=== PATIENT | male | born 1940 | race Caucasian/White ===

== ENCOUNTER → 2018-04-02 13:19 | Outpatient (CLI) | payer OTHER, SELFPAY ==
--- NOTE | 2018-04-02 | DI.CT.S_ITS ---
PROCEDURE: CT SINUS SCREEN WO CON INDICATIONS: CHRONIC SINUSITIS TECHNIQUE: Noncontrast 3.0 mm axial images acquired from the frontal sinuses to the mid-sella, with coronal and sagittal reformats. For radiation dose reduction, the following was used: automated exposure control, adjustment of mA and/or kV according to patient size. COMPARISON: None. FINDINGS: Image quality: Excellent. Paranasal sinuses are normally aerated. Minimal mucosal thickening in the anterior aspect of left maxillary sinus. Small mucous retention cyst versus polyp is noted in the left maxillary sinus. Small defect noted in the floor of the right maxillary sinus likely related to prior dental extraction. No oroantral fistula identified. No air-fluid levels are identified. Small defect in the lateral wall of the right maxillary sinus which could be postsurgical or congenital. The osteomeatal units are patent bilaterally. Diffuse right maxillary sinus osseous wall thickening is noted. 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 Nasal septum is slightly deviated to the right. No sarahi bullosa or paradoxical turbinates. No frontal recess cells. Type II cribriform plate is noted. No variannce in the ethmoid roof anatomy. The anterior ethmoid artery notches are protected bilaterally. Septa are noted in the anterior maxillary sinuses. Sphenoid pneumatization pattern is sellar complete. Type III right optic canal noted. Type I left optic canal noted. The sphenoid sinus septum is deviated to the right and attaches to the osseous optic canal. Atherosclerotic calcifications noted in the cavernous segments of the internal carotid arteries. IMPRESSION: 1. Minimal left maxillary sinus mucosal thickening. 2. Small left maxillary sinus retention cyst versus polyp. 3. Diffuse right maxillary sinus osseous wall thickening 4. No air-fluid levels. 5. Variant paranasal sinus anatomy as described above. Dictated by: Amarilys Peres MD, PhD on 04/02/2018 at 14:13 Approved by: Amarilys Peres MD, PhD on 04/02/2018 at 14:25
== END ==
PROVIDERS: PCP Family Medicine; Visit Provider Otolaryngology
DX: J32.8 Other chronic sinusitis (principal)
CPT/HCPCS: 70486

== ENCOUNTER → 2020-03-28 08:44 | Outpatient (CLI) | payer MEDICARE, SELFPAY ==
--- NOTE | 2020-03-28 08:45 | DI.ECHO.S_ITS ---
[facility] +---------+ : : [address] : : : : [id number] : : : : Phone: [phone]+ Echocardiogram Report + + :Name: QUINCY BOYD Study Date: 03/28/2020 Height: 71 in : :[facility] Weight: 265 lb : : Gender: Male BSA: 2.4 m2 : :: 1940 Age: 79 yrs BP: 187/97 mmHg: :Reason For Study: EDEMA, HISTORY OF CAD : :Ordering Physician: CECILIA, : :CHANDRIKA Performed By: Alexandrea Walters : :Referring: CHANDRIKA BROOKS : + + Interpretation Summary 1) Mildly increased left ventricular thickness (concentric) with normal size, and normal systolic function (EF 55-60%). 2) Septal motion is consistent with post-operative state. 3) Mildly enlarged right ventricle with mildly reduced function. 4) Diastolic parameters suggest a pseudonormalization pattern, consistent with probable elevated filling pressures. 5) No significant valvular abnormalities. 6) Significant hypertension present during the study (BP 187/97mmHg). 7) No prior Echo available for comparison. Procedure: A two-dimensional transthoracic echocardiogram with color flow and Doppler was performed. The study quality was technically adequate. The heart rate ranged between 58-68 bpm during the study. Left Ventricle: The left ventricle is normal in size. There is mild concentric left ventricular hypertrophy. The ejection fraction is estimated to be 55-60%. Septal motion is consistent with post-operative state. Diastolic parameters suggest a pseudonormalization pattern, consistent with probable elevated filling pressures. Right Ventricle: The right ventricle is mildly dilated. Right ventricular systolic function is mildly reduced. Atria: The left atrium is mildly dilated. Right atrial size is normal. There is no Doppler evidence for an interatrial shunt. Mitral Valve: The mitral valve leaflets appear mildly thickened, but open well. There is mild mitral annular calcification. There is mild mitral regurgitation. Aortic Valve: The aortic valve opens well. The aortic valve is mildly calcified. There is no aortic valve stenosis. No aortic regurgitation is present. Tricuspid Valve: The tricuspid valve is normal in structure and function. There is mild tricuspid regurgitation. Right ventricular systolic pressure is estimated to be 26 mmHg plus the clinically estimated CVP which cannot be estimated on this exam. Pulmonic Valve: The pulmonic valve is not well visualized. There is no pulmonic valvular regurgitation. Great Vessels: The aortic root is normal size. The ascending aorta is at the upper limits of normal in size. The inferior vena cava was not visualized. Pericardium/ Pleura There is no pericardial effusion. There is no pleural effusion. MMode/2D Measurements & Calculations LVIDd: 4.8 cm LVOT diam: 2.0 cm LVIDs: 3.0 cm Ao root diam: 3.3 cm FS: 37.8 % asc Aorta Diam: 3.6 cm EPSS: 0.75 cm IVSd: 1.2 cm LVPWd: 1.2 cm LV galarza. diameter/BSA (cm/m^2): 2.0 LV sys. diameter/BSA (cm/m^2): 1.3 LA A2 area: 24.7 cm2 RA long axis: 5.6 cm LA A4 area: 26.0 cm2 RA area: 16.6 cm2 LA length (vol): 6.1 cm RA vol: 41.9 ml LA vol: 89.7 ml RA : 17.6 ml/m2 LA vol index: 37.7 ml/m2 RVD1 (basal): 4.5 cm TAPSE: 1.6 cm Doppler Measurements & Calculations Ao V2 max: 166.6 cm/sec LVOT Max Tomas: 108.6 cm/sec Ao V2 mean: 112.2 cm/sec LV V1 max P.7 mmHg Ao max P.1 mmHg LV V1 VTI: 23.1 cm Ao mean P.6 mmHg EDISON(I,D): 2.2 cm2 Ao V2 VTI: 33.7 cm EDISON(V,D): 2.1 cm2 sev ratio: 0.69 EDISON indexed to BSA (cm^2/m^2): 0.93 MV E max tomas: 103.0 cm/sec TR max tomas: 255.6 cm/sec MV A max tomas: 120.0 cm/sec TR max P.1 mmHg MV E/A: 0.86 PA V2 max: 61.2 cm/sec Med Peak E' Tomas: 5.7 cm/sec PA V2 mean: 44.3 cm/sec E/E' med: 18.2 PA mean P.86 mmHg Lat Peak E' Tomas: 8.8 cm/sec PA pr(Accel): 51.6 mmHg E/E' lat: 11.7 E/e' average: 15.0 MV dec time: 0.25 sec SV(LVOT): 74.4 ml Reading Physician:03:44 PM
== END ==
PROVIDERS: PCP Family Medicine; Referring Provider Family Medicine; Visit Provider Family Medicine
DX: I08.1 Rheumatic disorders of both mitral and tricuspid valves (principal); I25.10 Atherosclerotic heart disease of native coronary artery without angina pectoris; R60.9 Edema, unspecified
CPT/HCPCS: 93306

== ENCOUNTER → 2020-06-05 07:39 | Outpatient (CLI) | payer MEDICARE, SELFPAY ==
[2020-06-05 08:53] LABS: BUN Creatinine Ratio 25.3 (6-22); Blood Urea Nitrogen 22 mg/dL (9-20); Calcium 9.4 mg/dL (8.4-10.2); Carbon Dioxide 32 mmol/L (22-32); Chloride 101 mmol/L (98-107); Estimated Glomerular Filt Rate > 60.0 mL/min (>60); Glucose 157 mg/dL (80-110); HEMOLYSIS < 15 (0-50); Potassium 4.2 mmol/L (3.4-5.1); Sodium 138 mmol/L (137-145)
[2020-06-05 08:57] LABS: Hemoglobin A1C% w Est Avg Glu 7.6 % (4.0-6.0)
== END ==
PROVIDERS: PCP Family Medicine; Referring Provider Family Medicine; Visit Provider Family Medicine
DX: E78.5 Hyperlipidemia, unspecified (principal); R73.9 Hyperglycemia, unspecified
CPT/HCPCS: 36415; 80048; 83036

== ENCOUNTER → 2020-06-08 11:01 | Outpatient (CLI) | payer MEDICARE, SELFPAY ==
--- NOTE | 2020-06-08 11:02 | DI.RAD.S_ITS ---
PROCEDURE: XR FOOT LT MIN 3V INDICATIONS: Left ankle and foot pain TECHNIQUE: 3 views of the foot were acquired. COMPARISON: None. FINDINGS: Bones: Left foot without acute fracture or malalignment. Degenerative changes of the left midfoot and severe degenerative changes involving the tarsometatarsal joints of the 1st 2nd and likely 3rd metatarsals. Moderate degenerative changes of the left 1st metatarsophalangeal and interphalangeal joints. Soft tissues: No tibiotalar joint effusion. Achilles tendon appears normal. IMPRESSION: 1. Left foot without acute fracture or malalignment. 2. 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 3. Degenerative osteoarthritic changes of the left 1st metatarsophalangeal, 1st interphalangeal, and midfoot. Dictated by: Thomas Shi M.D. on 06/08/2020 at 13:31 Approved by: Thomas Shi M.D. on 06/08/2020 at 14:07
--- NOTE | 2020-06-08 11:02 | DI.RAD.S_ITS ---
PROCEDURE: XR ANKLE LT MIN 3V INDICATIONS: Left ankle and foot pain TECHNIQUE: 3 views of the ankle were acquired. COMPARISON: None. FINDINGS: Bones: No fractures or dislocations. Ankle mortise is normally aligned. No suspicious bony lesions. Degenerative changes of the left midfoot. Minimal degenerative changes of the anterior tibiotalar joint. Soft tissues: No tibiotalar joint effusion. Achilles tendon appears normal. IMPRESSION: Minimal degenerative changes of the left ankle and midfoot. Dictated by: Thomas Shi M.D. on 06/08/2020 at 13:27 Approved by: Thomas Shi M.D. on 06/08/2020 at 13:31
== END ==
PROVIDERS: PCP Family Medicine; Referring Provider Family Medicine; Visit Provider Family Medicine
DX: M25.572 Pain in left ankle and joints of left foot (principal)
CPT/HCPCS: 73610; 73630

== ENCOUNTER → 2020-06-18 10:58 | Outpatient (CLI) | payer MEDICARE, SELFPAY ==
--- NOTE | 2020-06-18 10:59 | DI.MRI.S_ITS ---
PROCEDURE: MRFOOT LT WO CON INDICATIONS: Left foot and ankle pain TECHNIQUE: Noncontrast sagittal T1 spin echo and T2 fast spin echo with fat saturation, long-axis T1 spin echo and T2 fast spin echo with fat saturation, short-axis T1 spin echo and T2 fast spin echo with fat saturation through the forefoot. COMPARISON: [facility], CR, XR FOOT LT MIN 3V, 06/08/2020, 11:13. FINDINGS: Image quality: Excellent. Bones and joints: Significant osteoarthritic changes are noted throughout tarsal metatarsal joints more prominent involving 1st and 2nd TMT joints with joint space narrowing, subchondral sclerosis and edema, and prominent dorsal marginal osteophyte formation. Mild osteoarthritic changes are noted throughout MTP joints and interphalangeal joints more prominent in the 1st MTP joint. Osteoarthritic changes also seen involving articulation between 1st metatarsal head and sesamoid bones of 1st metatarsus. There is marrow edema involving medial sesamoid of 1st metatarsal head with subtle internal linear hypointense signal concerning for nondisplaced fracture. No fracture or dislocation. No suspicious intraosseous lesion. No evidence of metatarsal stress fractures. Soft tissues: The visualized plantar foot muscles demonstrate normal signal and bulk. Visualized flexor and extensor tendons appear intact, without tenosynovitis. The distal insertions of the peroneus brevis and longus tendons appear intact. The principal Lisfranc ligament appears intact. No soft tissue ganglion cysts or bursal fluid collections. Sagittal images demonstrate no evidence for plantar plate tears. IMPRESSION: 1. Suggestion of nondisplaced incomplete fracture involving medial sesamoid of 1st metatarsal head with internal fracture line and marrow edema. No other fracture or dislocation is seen. No metatarsal stress fracture. 2. Moderate to severe osteoarthritic changes involving 1st through 3rd TMT joints. [id number] osteoarthritic changes throughout rest of midfoot and forefoot joints. 3. Lisfranc ligament and joint is intact. Flexor and extensor tendons show no tendon tear or tendinosis. Visualized portion of plantar aponeurosis is grossly intact. Dictated by: Rito Abraham M.D. on 06/19/2020 at 8:57 Approved by: Rito Abraham M.D. on 06/19/2020 at 9:28
--- NOTE | 2020-06-18 10:59 | DI.MRI.S_ITS ---
PROCEDURE: MR ANKLE LT WO CON INDICATIONS: Left foot and ankle pain TECHNIQUE: Noncontrast sagittal T1 spin echo and T2 fast spin echo with fat saturation, axial proton density fast spin echo and T2 fast spin echo with fat saturation, coronal T1 spin echo and T2 fast spin echo with fat saturation through the ankle/hindfoot. COMPARISON: [facility], CR, XR ANKLE LT MIN 3V, 06/08/2020, 11:13. FINDINGS: Image quality: Excellent. Bones and joints: Marked soft tissue swelling and edema surrounding ankle joint is seen particularly over posterior and lateral aspect. Swelling is seen extending to dorsum of midfoot and hindfoot. No discrete drainable fluid collection is seen. Moderate to severe osteoarthritic changes are noted involving tarsal metatarsal joints particularly at 1st through 3rd TMT joints better evaluated on MRI of foot study. No bone marrow contusions or fractures. No hindfoot coalitions. No osteochondral injuries of the talar dome. No pathologic joint effusions. Medial structures: The posterior tibialis, flexor digitorum longus, and flexor hallucis longus tendons are intact. The posterior tibial neurovascular bundle appears normal within the tarsal tunnel, without extrinsic mass effect. The deep layer (anterior and posterior tibiotalar ligaments) and superficial layer (tibionavicular, tibiospring, and tibiocalcaneal ligaments) of the deltoid ligament appear normal. The spring ligament components (superomedial calcaneonavicular, medioplantar oblique calcaneonavicular, and inferoplantar longitudinal ligaments) are intact. Lateral structures: The anterior talofibular, calcaneofibular, and posterior talofibular ligaments appear intact. More superiorly, the anterior and posterior tibiofibular ligaments appear attenuated with heterogeneous intrasubstance T2 hyperintense signal suggestive of low-grade sprain/intrasubstance partial-thickness tear. The tibiofibular syndesmosis is normal in width at 2 mm or less. The peroneus longus and brevis tendons are mildly thickened and show mild adjacent soft tissue edema suggestive of tendinosis . Adjacent bony peroneal tubercle and retrotrochlear prominence are normal in size. The sinus tarsi demonstrates normal fatty signal, without edema, fibrosis, or cyst formation. Visualized sinus tarsi components (cervical ligament, interosseous talocalcaneal ligament, roots of the inferior extensor retinaculum) appear normal. The calcaneonavicular and calcaneocuboid components of the bifurcate ligament appear intact. The dorsal calcaneocuboid ligament appears intact. Anterior structures: The tibialis anterior, extensor hallucis longus, and extensor digitorum longus tendons appear intact. The dorsal talonavicular ligament appears intact. Posterior and plantar structures: Achilles tendon is intact. Medial and lateral bands of the plantar fascia are of normal thickness. No abductor digiti quinti muscle atrophy to suggest Kim neuropathy. IMPRESSION: 1. Significant soft tissue swelling and edema in visualized distal lower leg extending to posterior and lateral aspect of ankle joint and extending to dorsal aspect of midfoot and hindfoot. No discrete drainable fluid collection. 2. No fracture or dislocation. No marrow edema. Moderate to severe osteoarthritic changes throughout tarsal metatarsal joints particularly involving 1st through 3rd TMT joints better evaluated on MRI of foot study. Mild hindfoot joint osteoarthritis. 3. Suggestion of mild tendinosis involving peroneus tendons at the level of calcaneus. No evidence of tendon tear. Extensor and flexor tendons are intact. Achilles tendon is intact. 4. Low-grade sprain/partial-thickness tear involving anterior and posterior tibial fibular ligaments. No significant widening of distal tibial fibular syndesmosis. Rest of the medial and lateral ankle ligaments are grossly intact. Dictated by: Rito Abraham M.D. on 06/19/2020 at 9:28 Approved by: Rito Abraham M.D. on 06/19/2020 at 9:47
== END ==
PROVIDERS: PCP Family Medicine; Referring Provider Family Medicine; Visit Provider Family Medicine
DX: M79.672 Pain in left foot (principal); S93.432A Sprain of tibiofibular ligament of left ankle, initial encounter; M19.072 Primary osteoarthritis, left ankle and foot; M25.572 Pain in left ankle and joints of left foot; M79.89 Other specified soft tissue disorders
CPT/HCPCS: 73718; 73721

== ENCOUNTER → 2020-07-06 09:56 | Outpatient (CLI) | payer MEDICARE, SELFPAY ==
--- NOTE | 2020-07-06 11:04 | DIET.PN ---
Diabetes Intake: Initial Assessment Assess: Mr. Burns is a 79 yom referred for newly diagnosed type 2 diabetes. Since diagnosis he has started eating more vegan friendly foods. He has replaced meat with vegan/plant burgers and has been substituting with tofu. He does enjoy baking and generally makes his own breads and pastries with wheat flour. He is unable to exercise due to chronic foot pain from a cracked bone. 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 Labs: Per pt report: A1c: 7.6 Meds: Diet: per 24 hr recall: B: cheerios; home made blueberry scone; thompson, eggs; oatmeal L: veggie burger, chips; ham sandwich, chips D: pizza; spaghetti w/ meatballs Sn: orange; ice cream Wt: 243lb Ht: 71in BMI: 33.9 BP: 144/82 DX: Altered nutrition related laboratory values related to impaired glucose metabolism, lack of previous exposure to nutrition information as evidenced by pt report, diagnosis of diabetes, previous diet high in refined carbohydrates. Intervention: 1. Completed intake assessment. Discussed barriers to care. 2. Discussed pathophysiology of diabetes. Reviewed A1c and its correlation to blood glucose numbers. Discussed recommended BG ranges. 3. Discussed importance of self-monitoring, how often, and when to check. 4. Reviewed hyper/hypoglycemia and treatment. 5. Reviewed safe disposal of equipment (strip/lancets/insulin needles). 6. Created SMART goals for pt self-care and success. 7. Discussed program curriculum outline and class needs based on individual goals. SMART Goals: 1. Pt goal A1c <7.0 in the next 3 months through closer attention to dietary behaviors including portion control, label reading, and learning carb counting. Monitor/Evaluate: Pt will attend full DSME program. Basic Nutrition class scheduled for Jul 11.
== END ==
PROVIDERS: PCP Family Medicine; Referring Provider Family Medicine; Visit Provider Family Medicine
DX: E11.9 Type 2 diabetes mellitus without complications (principal); E66.9 Obesity, unspecified; G89.29 Other chronic pain; M79.673 Pain in unspecified foot; Z68.33 Body mass index [BMI] 33.0-33.9, adult; Z71.3 Dietary counseling and surveillance
CPT/HCPCS: G0108

== ENCOUNTER → 2020-07-11 10:07 | Outpatient (CLI) | payer MEDICARE, SELFPAY ==
--- NOTE | 2020-07-11 11:59 | DIET.PN ---
Diabetes: Healthy Eating 2 Intervention: Fats effects on glucose, weight, heart disease, cholesterol Sat Vs Unsat Protein- animal and plant based options Low, med, high fat meats Sugar substitutes Sodium Health claims Grocery shopping guidelines Eating away from home Alcohol Sick day guidelines Ketone Testing
== END ==
PROVIDERS: PCP Family Medicine; Referring Provider Family Medicine; Visit Provider Family Medicine
DX: E11.9 Type 2 diabetes mellitus without complications (principal); Z71.3 Dietary counseling and surveillance
CPT/HCPCS: G0109

== ENCOUNTER → 2020-08-01 09:49 | Outpatient (CLI) | payer MEDICARE, SELFPAY ==
--- NOTE | 2020-08-01 12:27 | DIET.PN ---
Diabetes: Healthy Eating 1 Intervention: ? Discussed pathophysiology of diabetes and impact of nutrition/diet on blood sugar control.? Discussed fed versus non-fed state.?? ? Reviewed importance of Balance, Variety, and Moderation. ? Discussed the effect of carbohydrates/protein/fat on blood sugar control.? ? Stressed importance of consistent carbohydrate intake at each meal and provided instructions for recommended servings/portions of carbohydrates/protein per meal. Provided educational material. ? Reviewed carbohydrate counting and measuring carbohydrate content via serving sizes and reading nutrition labels.? Provided handouts.?? ? Discussed the difference between simple versus complex carbohydrates and the effect of fiber on blood sugar control.? Discussed various methods to increase fiber content in diet. ? Discussed the plate method for creating more carbohydrate conscious balanced meals. ? Stressed importance of meal timing and not going >4-5 hours between meals. Encouraged adding protein to evening snack to support glucose control overnight. ? Discussed importance of making dietary habits part of lifestyle change.
== END ==
PROVIDERS: PCP Family Medicine; Referring Provider Family Medicine; Visit Provider Family Medicine
DX: E11.9 Type 2 diabetes mellitus without complications (principal); Z71.3 Dietary counseling and surveillance
CPT/HCPCS: G0109

== ENCOUNTER → 2021-06-13 08:20 | Outpatient (CLI) | payer MEDICARE, SELFPAY ==
[2021-06-13 08:36] LABS: Add Manual Diff / Slide Review NO; Basophils Absolute Auto 0 /uL (0-100); Basophils Percent Auto 0.4 % (0-2); Eosinophils Absolute Auto 100 /uL (0-450); Eosinophils Percent Auto 1.6 % (2-4); Hematocrit 43.6 % (41-53); Hemoglobin 14.7 g/dL (13.5-17.5); Lymphocytes Absolute Auto 1600 /uL (1100-4500); Lymphocytes Percent Auto 23.2 % (25-40); Mean Corpuscular HGB Conc 33.7 % (30-36); Mean Corpuscular Hemoglobin 29.8 PG (26-34); Mean Corpuscular Volume 88.4 fL (80-100); Monocytes Absolute Auto 600 /uL (0-900); Monocytes Percent Auto 9.2 % (3-14); Neutrophils Absolute Auto 4500 /uL (1500-7000); Neutrophils Percent Auto 65.6 % (50-75); Platelet Count 223 X10^3/uL (150-400); Red Blood Cell Count 4.93 X10^6/uL (4.5-5.9); Red Cell Distribution Width 13.7 % (11.6-14.8); White Blood Cell Count 6.9 X10^3/uL (4.5-11.0)
[2021-06-13 08:44] LABS: Hemoglobin A1C% w Est Avg Glu 7.3 % (4.0-6.0)
[2021-06-13 08:58] LABS: Alanine Aminotransferase 23 IU/L (<50); Albumin 4.4 g/dL (3.5-5.0); Albumin Globulin Ratio 1.6 (1.0-2.8); Alkaline Phosphatase 61 U/L (38-126); Aspartate Aminotransferase 23 IU/L (17-59); Bilirubin Total 0.9 mg/dL (0.2-1.3); Blood Urea Nitrogen 29 mg/dL (9-20); Calcium 9.5 mg/dL (8.4-10.2); Carbon Dioxide 29 mmol/L (22-32); Chloride 102 mmol/L (98-107); Cholesterol 124 mg/dL (140-199); Estimated Glomerular Filt Rate > 60.0 mL/min (>60); Globulin 2.7 g/dL (1.7-4.1); Glucose 148 mg/dL (80-110); HDL Cholesterol 42 mg/dL (40-60); HEMOLYSIS < 15 (0-50); LDL Cholesterol Calculated 58 mg/dL (<100); Potassium 4.1 mmol/L (3.4-5.1); Sodium 141 mmol/L (137-145); Total Protein 7.1 g/dL (6.3-8.2); Triglycerides 120 mg/dL (35-150)
[2021-06-13 10:56] LABS: Microalbumi Creatinin Ratio Ur 13.3 ug/mg CR (<30)
== END ==
PROVIDERS: PCP Family Medicine; Referring Provider Family Medicine; Visit Provider Family Medicine
DX: E11.69 Type 2 diabetes mellitus with other specified complication (principal); E78.2 Mixed hyperlipidemia; I10 Essential (primary) hypertension; I25.10 Atherosclerotic heart disease of native coronary artery without angina pectoris
CPT/HCPCS: 36415; 80053; 80061; 82043; 82570; 83036; 85025

== ENCOUNTER → 2022-08-06 06:49 | Outpatient (CLI) | payer MEDICARE, SELFPAY ==
[2022-08-06 08:16] LABS: Add Manual Diff / Slide Review NO; Basophils Absolute Auto 0 /uL (0-100); Basophils Percent Auto 0.5 % (0-2); Eosinophils Absolute Auto 200 /uL (0-450); Eosinophils Percent Auto 2.6 % (2-4); Hematocrit 40.7 % (41-53); Hemoglobin 13.8 g/dL (13.5-17.5); Lymphocytes Absolute Auto 1500 /uL (1100-4500); Lymphocytes Percent Auto 23.2 % (25-40); Mean Corpuscular Volume 88.1 fL (80-100); Monocytes Absolute Auto 600 /uL (0-900); Monocytes Percent Auto 9.6 % (3-14); Neutrophils Absolute Auto 4200 /uL (1500-7000); Neutrophils Percent Auto 64.1 % (50-75); Platelet Count 215 X10^3/uL (150-400); Red Blood Cell Count 4.62 X10^6/uL (4.5-5.9); Red Cell Distribution Width 13.9 % (11.6-14.8); White Blood Cell Count 6.6 X10^3/uL (4.5-11.0)
[2022-08-06 08:39] LABS: Alanine Aminotransferase 27 IU/L (<50); Albumin Globulin Ratio 1.4 (1.0-2.8); Alkaline Phosphatase 74 U/L (38-126); Aspartate Aminotransferase 22 IU/L (17-59); BUN Creatinine Ratio 29.8 (6-22); Bilirubin Total 0.8 mg/dL (0.2-1.3); Blood Urea Nitrogen 28 mg/dL (9-20); Calcium 8.9 mg/dL (8.4-10.2); Carbon Dioxide 30 mmol/L (22-32); Chloride 100 mmol/L (98-107); Cholesterol 125 mg/dL (140-199); Estimated Glomerular Filt Rate > 60 mL/min (>60); Globulin 2.9 g/dL (1.7-4.1); Glucose 136 mg/dL (80-110); HDL Cholesterol 43 mg/dL (40-60); HEMOLYSIS < 15 (0-50); LDL Cholesterol Calculated 59 mg/dL (<100); Potassium 3.9 mmol/L (3.4-5.1); Sodium 137 mmol/L (137-145); Total Protein 6.9 g/dL (6.3-8.2); Triglycerides 115 mg/dL (35-150)
[2022-08-06 18:07] LABS: Creatinine Urine Random 68.5 mg/dL
[2022-08-06 18:15] LABS: Microalbumin Urine Random < 0.6 mg/dL (0-1.6)
[2022-08-06 23:23] LABS: x Labcorp Estim. Avg Glu (eAG) 154 mg/dL (.)
== END ==
PROVIDERS: PCP Family Medicine; Referring Provider Family Medicine; Visit Provider Family Medicine
DX: E11.69 Type 2 diabetes mellitus with other specified complication (principal); E78.2 Mixed hyperlipidemia; I10 Essential (primary) hypertension
CPT/HCPCS: 80053; 80061; 82043; 82570; 83036; 85025

== ENCOUNTER 2022-09-19 13:06 | Day surgery (SDC) | payer MEDICARE, SELFPAY ==
[2022-09-13 14:18] VITALS: BMI 33.0
[2022-09-19] VITALS (7 sets, daily range): BP systolic 81–151; BP diastolic 47–81; PULSE 63–88; RESP 12–18; TEMP 36.2–36.4; O2SAT 93–98; BMI 33.0
--- NOTE | 2022-09-19 13:58 | PM.PREOP ---
Pre-operative Note Interval Note History & Physical reviewed/Exam performed by Physician: Yes Changes to H&P: No
[2022-09-19] MEDS: VANCOMYCIN 1,500 MG/300 ML PIGGYBACK 200 MG IV (14:08)
--- NOTE | 2022-09-19 14:24 | P.OP_ITS ---
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 He developed a end bearing callus on his 2nd toe that ulcerated down to bone involving osteomyelitis and swelling required treatment. He is indicated for partial amputation to address the infection and deformity that puts him at high risk for recurrence. He understands and agrees with the plan. The risks and benefits of the procedure have been discussed with the patient and given the opportunity to ask questions. The risks of surgery include but are not limited to infection, malunion, nonunion, persistence of pain, damage to nerves and blood vessels, posttraumatic arthritis, DVT, PE, cardiopulmonary complications and . The patient expressed a thorough understanding of the risks and benefits of surgery and has elected to proceed. Consent was signed Marketing Planning Manager: [place] Click Yes if Unassisted: Yes Anesthesia Type: General, MAC +/- and Local Operative Notes Findings: Full-thickness in bearing calculus rigid clawtoe deformity with swelling erythema left 2nd toe rigid additional lesser toes without wounds Closure Type: primary Specimen(s): none sent Estimated Blood Loss (mL): 0 Blood products transfused: none Tourniquet time (min): 11 Procedure in detail: Patient was seen in the preoperative area the site of surgery marked informed consent confirmed. He was brought back to the operating room by the anesthesia team and positioned supine. Mac anesthesia was administered. A ankle to urniquet was placed on the left ankle. The left foot was prepped and draped in the standard sterile fashion a formal time-out procedure was performed confirming the patient's side and site of surgery administration of antibiotic. Attention was turned to the left 2nd toe. 8 cc of 0.25% Marcaine with epinephrine was used to inject for digital block. Then gravity exsanguination was completed and the tourniquet raised on the ankle to 250 mmHg. Attention was turned to the 2nd toe fishmouth incision was taken over the distal proximal phalanx down to the level of bone the extensor and flexor tendons were transected. The digit was amputated through the proximal interphalangeal joint. The mini C-arm was brought in and the condyles of the proximal phalanx were resected. The wound was thoroughly irrigated. The neurovascular bundles were dissected cut and allowed to retract. The extensor and flexor tendons were cut and allowed to retract. And the soft tissues were repaired and closed with 3-0 PDS 4-0 Monocryl and 4-0 nylon suture. The tourniquet was released prior to skin closure and hemostasis was achieved. Sterile dressing with Xeroform gauze and conform and an Gilberto wrap were placed. Drapes removed. The patient was woken from anesthesia. A postoperative shoe was placed the patient was taken to the PACU in good condition there no immediate complications for this procedure. All counts were correct Complications: none Post-operative Condition: stable Disposition: PACU Plan for aftercare: Weightbear as tolerated postoperative shoe. Keep dressings dry. Follow up in 2-3 weeks for suture removal
[2022-09-19] MEDS: BUPIVACAINE 0.25% (PF) 30 ML, EPINEPHrine 0.15 MG INJ (14:50)
--- NOTE | 2022-09-19 15:10 | SUR.OPER ---
Supine on padded OR bed, head on pillow, arms secured on padded arm boards at <90 degrees abduction, legs uncrossed, safety belt at thigh, tape over blanket over lower legs.
[2022-09-19] MEDS: ALBUTEROL/IPRATROPIUM 3 ML AMPUL INH (16:00)
== END 2022-09-19 16:23 | disposition home or self-care (01) ==
PROVIDERS: PCP Family Medicine; Referring Provider Orthopaedic Surgery Foot and Ankle Surgery; Visit Provider Orthopaedic Surgery Foot and Ankle Surgery
PROC: (CPT 28825; principal; 2022-09-19 14:45)
DX: E11.628 Type 2 diabetes mellitus with other skin complications (principal); M20.42 Other hammer toe(s) (acquired), left foot; E11.610 Type 2 diabetes mellitus with diabetic neuropathic arthropathy; Z79.84 Long term (current) use of oral hypoglycemic drugs
CPT/HCPCS: 28825; J0171; J2704; J3010

== ENCOUNTER → 2023-02-03 08:28 | Outpatient (CLI) | payer OTHER, SELFPAY ==
[2023-02-03 09:52] LABS: Hemoglobin A1C% w Est Avg Glu 7.9 % (4.0-6.0)
== END ==
PROVIDERS: PCP Family Medicine; Referring Provider Family Medicine; Visit Provider Family Medicine
DX: E11.9 Type 2 diabetes mellitus without complications (principal); I25.10 Atherosclerotic heart disease of native coronary artery without angina pectoris; I10 Essential (primary) hypertension; E78.5 Hyperlipidemia, unspecified
CPT/HCPCS: 36415; 83036

== ENCOUNTER → 2023-05-13 09:53 | Outpatient (CLI) | payer MEDICARE, SELFPAY ==
[2023-05-13 11:34] LABS: Alanine Aminotransferase 20 IU/L (<50); Albumin 3.9 g/dL (3.5-5.0); Albumin Globulin Ratio 1.2 (1.0-2.8); Alkaline Phosphatase 75 U/L (38-126); Aspartate Aminotransferase 21 IU/L (17-59); BUN Creatinine Ratio 29.1 (6-22); Bilirubin Total 0.8 mg/dL (0.2-1.3); Blood Urea Nitrogen 25 mg/dL (9-20); Calcium 9.1 mg/dL (8.4-10.2); Carbon Dioxide 32 mmol/L (22-32); Chloride 98 mmol/L (98-107); Estimated Glomerular Filt Rate > 60 mL/min (>60); Globulin 3.2 g/dL (1.7-4.1); Glucose 311 mg/dL (80-110); HEMOLYSIS < 15 (0-50); Potassium 4.1 mmol/L (3.4-5.1); Sodium 136 mmol/L (137-145); Total Protein 7.1 g/dL (6.3-8.2)
[2023-05-14 12:09] LABS: x Labcorp Estim. Avg Glu (eAG) 197 mg/dL (.); x Labcorp Hemoglobin A1c 8.5 % (4.8-5.6)
== END ==
PROVIDERS: PCP Family Medicine; Referring Provider Family Medicine; Visit Provider Family Medicine
DX: E11.9 Type 2 diabetes mellitus without complications (principal); I25.10 Atherosclerotic heart disease of native coronary artery without angina pectoris; I10 Essential (primary) hypertension; E78.5 Hyperlipidemia, unspecified
CPT/HCPCS: 36415; 80053; 83036

== ENCOUNTER 2023-06-04 16:14 | Observation (INO) | payer OTHER, SELFPAY ==
[2023-06-02 13:17] VITALS: BMI 32.1
[2023-06-04] VITALS (16 sets, daily range): BP systolic 104–171; BP diastolic 51–99; PULSE 63–108; RESP 14–22; TEMP 35.7–36.6; O2SAT 90–97; BMI 32.1
--- NOTE | 2023-06-04 | PATH_ITS ---
[facility] Accession Number: [id number] No. of containers..01 Tissue . 01 Material submitted: . toe - 3RD TOE . 01 Diagnosis: A. 3RD TOE, DISARTICULATION/AMPUTATION: Skin and soft tissue margin: Viable. Skin with ulcer and mild epidermal hyperplasia/reactive changes. Underlying bone with fibrosis, chronic inflammation, and very minimal acute inflammation. No evidence of malignancy. [facility] 06/11/2023 1733 Local . 01 Electronically signed: . Karine Ayala MD, Pathologist NPI- [id number] . 01 Gross description: . The specimen is received in formalin, labeled with the patient's name, , and third toe, and consists of a disarticulated digit measuring 3.0 cm in length by 2.2 cm in diameter. The cutaneous surface is tejada and wrinkled with an ulcerated area at the distal tip measuring 1.5 x 1.1 cm. The nail bed is tejada and thickened. The articular surface is inked orange while the soft tissue margin is inked blue. The ulcerated area is widely free from the soft tissue margin. Sectioning reveals tejada soft tissue with tejada trabecular osseous tissue that is relatively easy to section with a scalpel. Gas Meter Reader sections are submitted as follows: . A1: Soft tissue margin en face. A2: Articular surface en face. A3: Longitudinal section with ulcerated lesion and underlying bone. Sections decalcified. ([id number]) . An additional longitudinal section is submitted with ulcerated lesion and underlying bone following decalcification. ([id number]) /MRV 06/10/2023 1820 Local . 01 Pathologist provided ICD-10: E11.40 . 01 CPT . 820411 Specimen Comment: A courtesy copy of this report has been sent to [phone] Performed at: 01 [facility] [address] [facility] [place], [place], [place] [id number] MD Kash Louis MD Phone: [phone]
[2023-06-04] MEDS: ACETAMINOPHEN 325 MG TABLET 975 MG PO (11:17)
[2023-06-04] MEDS: LACTATED RINGERS 1,000 ML 42 ML IV (11:18)
--- NOTE | 2023-06-04 13:36 | PM.PREOP ---
Pre-operative Note Interval Note History & Physical reviewed/Exam performed by Physician: Yes Changes to H&P: No
[2023-06-04] MEDS: CEFAZOLIN 2 GM/100 ML PREMIX 100 ML IV (14:13)
--- NOTE | 2023-06-04 14:27 | SUR.OPER ---
Supine on padded OR bed, head on pillow, arms secured on padded arm boards at <90 degrees abduction, legs uncrossed, safety belt at thigh, tape over blanket over lower legs.
[2023-06-04] MEDS: ALBUTEROL 2.5 MG/3 ML NEB (ADULT) INH (15:10)
--- NOTE | 2023-06-04 15:18 | P.OP_ITS ---
Operative Date/Time/Diagnoses Date of procedure: 06/04/23 Time of procedure: 14:00 Pre-op diagnosis: Diabetic foot infection E11.628 Hammertoe/clawtoe left foot 4th toe M20.42 Post-op diagnosis: same Procedure & Clinicians Procedure: 1. Claw toe correction left 4th toe CPT code 62159 T3 2. Partial amputation left foot 3rd toe CPT code 16830 T2 Same procedure as scheduled: Yes Indications: Patient is an 82-year-old male with diabetes type 2 and peripheral neuropathy. He has a nonhealing in bearing callus with ulceration and lucency on x-ray consistent with osteomyelitis of his distal left 3rd toe. He has had previous partial amputations of the left 2nd toe. 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 He has been indicated for partial amputation of the left 3rd toe through the proximal phalanx for eradication of his diabetic infection which will also correct the deformity on that digit. He is also indicated for defo rmity correction of the left 4th toe which is an at-risk rigid deformed digit. Patient has failed previous care with wound care and at least a month of oral antibiotics prior to seeking treatment with ms. The risks and benefits of the procedure have been discussed with the patient and given the opportunity to ask questions. The risks of surgery include but are not limited to infection, need for additional procedures or more proximal amputation,, malunion, nonunion, symptomatic hardware, persistence of pain, damage to nerves and blood vessels, posttraumatic arthritis, DVT, PE, cardiopulmonary complications and . The patient expressed a thorough understanding of the risks and benefits of surgery and has elected to proceed. Consent was signed. Surgeon: Peace Waters Click Yes if Unassisted: Yes Anesthesia Type: General Operative Notes Findings: Rigid claw deformity with endbearing callus and ulceration swelling left 3rd toe. Rigid claw toe deformity 4th toe without wound Closure Type: primary Specimen(s): other (Bone from 3rd toe proximal phalanx condyle sent for culture, 3rd toe sent for pathology) Prosthetic devices, grafts, tissues, transplants, or devices: Arthrex 2.5 mm x 26 mm cannulated headless screw--4th toe Blood products transfused: none Tourniquet time (min): 3 Procedure in detail: Patient was seen in the preoperative area the site of surgery marked informed consent confirmed. The patient was brought to the operating room by the anesthesia team positioned supine on operative table. All bony prominences were well padded. A well-padded thigh tourniquet was applied. The left lower extremity was prepped and draped in standard sterile fashion a formal time-out procedure was performed confirming the patient's side and site of surgery administration of appropriate preoperative antibiotic. All were in agreement.\ Attention turned to the left foot. [place] was used for exsanguination the tourniquet raised on the thigh to 250 mmHg. Third toe partial amputation: Fish mouth incision was made over the PIP joint of the 3rd toe this was taken full-thickness through the extensor tendon down to the level of the bone and through the flexor tendons plantarly. Toe was disarticulated at the PIP joint and sent for pathology. Next a rongeur was used to remove the condyles on the proximal phalanx and contour the edges. Neurovascular bundles were trimmed and allowed to retract. The wound was irrigated. Tourniquet was released hemostasis was achieved. The wound was closed in layers with 4-0 Monocryl and 4-0 nylon suture. Toe pinked up well. Tissue was bleeding appropriately. Bone from the remaining proximal phalanx condyles was sent for culture. Fourth toe claw toe correction. Once the tourniquet was released attention was turned to the 4th claw toe this was done in a minimally invasive fashion with no tourniquet. Small incision was made over the PIP joint and the hemostat used to do blunt dissection. The MIS bur from the [id number] system was used to remove cartilage from the middle and p roximal phalanx at the PIP joint. Once this was appropriately debrided under intraoperative fluoroscopic guidance and copious irrigation, a guidewire for the 2.5 headless cannulated screw was inserted across the distal middle and proximal phalanx. Alignment was checked in the AP and lateral planes and confirmed to be in the bone. Once this was appropriate the wire was drilled and measured. A 26 mm 2.5 mm cannulated headless screw was then advanced for the claw toe correction. Once this was appropriate the wire was removed. Confirmatory x- rays were obtained in AP and lateral planes confirming appropriate alignment and hardware placement. And the incisions were closed with 4-0 nylon suture. This was completed under no tourniquet. Toe remained pink then the entirety of the procedure. Sterile dressings were placed with Xeroform gauze and Marques wrap followed by an Gilberto. Drapes removed and a postoperative shoe was placed. Patient was woken from anesthesia and taken to the recovery room. Counts were correct. Complications: none Post-operative Condition: stable Disposition: observation Plan for aftercare: Left foot weightbear as tolerated in postop shoe. Keep dressing clean dry and intact until follow up. Patient was noted to have bradycardia intraoperatively and postop PACU EKG demonstrated abnormalities. Discussion with anesthesia and hospitalist and plan for property assessment monitor during overnight. Patient's outpatient [employer] police officer is Rhett Deras at [facility]
[2023-06-04 15:53] LABS: Add Manual Diff / Slide Review NO; Basophils Absolute Auto 0 /uL (0-100); Basophils Percent Auto 0.3 % (0-2); Eosinophils Absolute Auto 100 /uL (0-450); Eosinophils Percent Auto 1.5 % (2-4); Hemoglobin 13.5 g/dL (13.5-17.5); Lymphocytes Absolute Auto 1700 /uL (1100-4500); Lymphocytes Percent Auto 23.8 % (25-40); Mean Corpuscular HGB Conc 33.8 % (30-36); Mean Corpuscular Hemoglobin 30.1 PG (26-34); Mean Corpuscular Volume 89.2 fL (80-100); Monocytes Absolute Auto 600 /uL (0-900); Monocytes Percent Auto 7.8 % (3-14); Neutrophils Absolute Auto 4800 /uL (1500-7000); Neutrophils Percent Auto 66.6 % (50-75); Platelet Count 201 X10^3/uL (150-400); Red Blood Cell Count 4.48 X10^6/uL (4.5-5.9); Red Cell Distribution Width 14.1 % (11.6-14.8); White Blood Cell Count 7.2 X10^3/uL (4.5-11.0)
[2023-06-04 16:05] LABS: BUN Creatinine Ratio 29.5 (6-22); Blood Urea Nitrogen 26 mg/dL (9-20); Calcium 8.7 mg/dL (8.4-10.2); Carbon Dioxide 31 mmol/L (22-32); Chloride 104 mmol/L (98-107); Creatine Kinase 42 U/L (55-170); Estimated Glomerular Filt Rate > 60 mL/min (>60); Glucose 148 mg/dL (80-110); HEMOLYSIS < 15 (0-50); Sodium 139 mmol/L (137-145)
--- NOTE | 2023-06-04 16:13 | DI.ECHO.S_ITS ---
[facility]---------+ [facility] +---------+ : : [address] : : : : [id number] : : : : Phone: [phone]+ Echocardiogram Report + + :Name: QUINCY BOYD Study Date: 06/05/2023 Height: 71 in : :[facility] ReadingLocation: Weight: 220 lb : : Gender: Male BSA: 2.2 m2 : :: 1940 Age: 82 yrs BP: 129/63 mmHg: :Reason For Study: INTRAOP BRADYCARDIA : :Ordering Physician: MAI, : :ETHAN Dela Cruz Performed By: Jm Powers : :Referring: ETHAN ONEILL : + + Interpretation Summary There is mild concentric left ventricular hypertrophy. The ejection fraction is estimated to be 55-60%. Diastolic function could not be accurately assessed due to unobtainable data. The right ventricle is mildly dilated. Right ventricular systolic function is mildly reduced. No significant valvular abnormalities. Pulmonary artery pressures cannot be estimated because of the lack of a measurable TR jet velocity but the IVC suggests a CVP of around 3 mmHg. Compared to the prior study dated 03/28/2020, no change. Procedure: A two-dimensional transthoracic echocardiogram with color flow and Doppler was performed. The study quality was technically adequate. Comparison is made with the echocardiogram of 03/28/2020. The patient was in normal sinus rhythm during the exam. The heart rate ranged between 63-75 bpm during the study. Left Ventricle: The left ventricle is normal in size. There is mild concentric left ventricular hypertrophy. The ejection fraction is estimated to be 55-60%. Diastolic function could not be accurately assessed due to unobtainable data. Right Ventricle: The right ventricle is mildly dilated. Right ventricular systolic function is mildly reduced. Atria: The left atrial size is normal. Right atrial size is normal. The interatrial septum grossly appears intact with no obvious evidence for an atrial septal defect. Mitral Valve: The mitral valve is normal. There is mild mitral annular calcification. There is no mitral regurgitation noted. Aortic Valve: The aortic valve is trileaflet. The aortic valve is slightly calcified. There is no aortic valve stenosis. No aortic regurgitation is present. Tricuspid Valve: The tricuspid valve is normal in structure and function. There is no tricuspid stenosis. There is trace tricuspid regurgitation. Pulmonary artery pressures cannot be estimated because of the lack of a measurable TR jet velocity but the IVC suggests a CVP of around 3 mmHg. Pulmonic Valve: The pulmonic valve is not well visualized. There is no pulmonic valvular stenosis. There is no pulmonic valvular regurgitation. Great Vessels: The aortic root is normal size. The dimensions of the ascending aorta are normal. The IVC is of normal diameter and collapses greater than 50% with a sniff. This suggests a low right atrial pressure of 3 mm Hg. Pericardium/ Pleura There is no pericardial effusion. There is no pleural effusion. MMode/2D Measurements & Calculations LVIDd: 4.4 cm LVOT diam: 2.2 cm LVIDs: 2.6 cm Ao root diam: 3.3 cm FS: 40.1 % asc Aorta Diam: 3.5 cm IVSd: 1.3 cm LVPWd: 1.3 cm LV galarza. diameter/BSA (cm/m^2): 2.0 LV sys. diameter/BSA (cm/m^2): 1.2 LA A2 area: 20.9 cm2 RA long axis: 5.0 cm LA A4 area: 20.3 cm2 RA area: 18.7 cm2 LA length (vol): 5.8 cm RA vol: 59.5 ml LA vol: 62.2 ml RA : 27.1 ml/m2 LA vol index: 28.3 ml/m2 IVC diam: 1.9 cm RVD1 (basal): 4.1 cm RVD2 (mid): 3.2 cm TAPSE: 1.5 cm Doppler Measurements & Calculations Ao V2 max: 159.3 cm/sec LVOT Max Tomas: 104.8 cm/sec Ao V2 mean: 126.3 cm/sec LV V1 max P.4 mmHg Ao max P.2 mmHg LV V1 VTI: 22.8 cm Ao mean P.8 mmHg EDISON(I,D): 2.6 cm2 Ao V2 VTI: 34.1 cm EDISON(V,D): 2.6 cm2 sev ratio: 0.67 EDISON indexed to BSA (cm^2/m^2): 1.2 MV E max tomas: 162.9 cm/sec TR max tomas: 259.6 cm/sec MV A max tomas: 26.8 cm/sec TR max P.9 mmHg MV E/A: 6.1 PA V2 max: 158.5 cm/sec Med Peak E' Tomas: 8.6 cm/sec PA V2 mean: 98.9 cm/sec E/E' med: 18.8 PA mean P.6 mmHg Lat Peak E' Tomas: 11.8 cm/sec PA pr(Accel): 51.6 mmHg E/E' lat: 13.9 E/e' average: 16.4 MV dec time: 0.12 sec MVA(VTI): 2.0 cm2 MV V2 mean: 82.4 cm/sec SV(LVOT): 89.2 ml MV mean P.3 mmHg MV V2 VTI: 45.5 cm Reading Physician:11:34 AM
[2023-06-04 16:17] LABS: Troponin I < 0.012 ng/mL (0.01-0.034)
--- NOTE | 2023-06-04 16:19 | P.HP_ITS ---
History of Present Illness History of Present Illness Date Patient Seen: 06/04/23 Chief complaint: Left Toe Amputation Narrative: Roni Sage is an 82yo M with PMH of LBBB, DM2, HTN, HLD, BPH, CAD and ANNCY who presents from PACU as postop for hammertoe surgery where he had a 5 min episode of bradycardia in 20-30's. Per anesthesia, patient's OR case was going well, then his HR dipped into the 20's and may have showed a heart block. She pushed 2 doses of IV atropine 0.4mg and HR shot up into what looked like A-fib RVR then back into NSR with LBBB. Patient doing well in PACU, but will be monitored overnight on tele. Patient denies any symptoms currently. Trops negative. Electrolytes including mag and K are in good range. He denies CP, SOB, NV, abd pain or diarrhea. [facility] Medical History (Updated 02/11/23 @ 10:40 by Ke Meier MD) PVCs (premature ventricular contractions) First degree AV block LBBB (left bundle branch block) Neuropathy Diabetic Charcot foot Hammertoe of left foot Diabetic foot infection Osteoarthritis of foot, left Fracture of sesamoid bone of foot, closed Foot pain, left Diabetes mellitus Coronary artery disease BPH (benign prostatic hyperplasia) Hypertension Hyperlipidemia Sleep apnea (~1999) Chronic cough (~2005) Allergies Foot pain (~2009) Ankle pain (~2014) Recurrent sinusitis (~1993) Cardiac arrhythmia Surgical History (Updated 06/02/23 @ 13:23 by Lindsay Robbins RN) Hx of foot surgery (09/19/22) Anesthesia History of appendectomy History of quadruple bypass (2010) Family History Father Cancer Social History household members: none Smoking Status: Former smoker alcohol intake: current eating out: 1-3 times/week Type(s) of exercise: other Meds Home Medications and Allergies Home Medications Medication Instructions Recorded Confirmed Type multivitamin,nl-[id number]-[id number] 1 tab PO DAILY #90 tabs 04/06/20 06/04/23 Rx (Complete Multivitamin tablet) lancets 33 gauge (OneTouch Delica #100 ea 06/16/20 05/29/23 Rx Lancets) blood-glucose meter (Blood Glucose #1 ea 07/06/20 05/29/23 Rx Monitoring kit) Parking Permit... 1 unit Not Applicable .continuous 02/13/21 05/29/23 Rx #1 unit blood sugar diagnostic (OneTouch See Rx Instructions .Route 07/16/21 05/29/23 Rx Verio test strips) .COMPLEX #100 strips felodipine 5 mg tablet,extended See Rx Instructions .Route 08/13/22 06/04/23 Rx release 24 hr .COMPLEX #90 tabs finasteride 5 mg tablet See Rx Instructions .Route 08/13/22 06/04/23 Rx .COMPLEX #90 tabs losartan 100 See Rx Instructions .Route 08/13/22 06/04/23 Rx mg-hydrochlorothiazide 25 mg tablet .COMPLEX #90 tabs metoprolol succinate 25 mg See Rx Instructions .Route 08/13/22 06/04/23 Rx tablet,extended release 24 hr .COMPLEX #180 tabs omeprazole 20 mg capsule,delayed See Rx Instructions .Route 08/13/22 06/04/23 Rx release .COMPLEX #90 caps rosuvastatin 20 mg tablet See Rx Instructions .Route 08/13/22 06/04/23 Rx .COMPLEX #90 tabs terazosin 10 mg capsule See Rx Instructions .Route 08/13/22 06/04/23 Rx .COMPLEX #90 caps dapagliflozin propanediol 10 mg 10 mg PO QAM #90 tabs 05/29/23 06/04/23 Rx tablet (Farxiga) hydrocodone 5 mg-acetaminophen 325 1 tab PO Q6H PRN pain #20 tabs 06/04/23 Rx mg tablet hydrocodone 5 mg-acetaminophen 325 1 tab PO Q6H PRN pain #20 tabs 06/04/23 Rx mg tablet Allergies Allergy/AdvReac Type Severity Reaction Status Date / Time metformin AdvReac Intermediate Diarrhea, Verified 06/04/23 10:50 nausea, vomiting azithromycin AdvReac Verified 06/04/23 10:50 Penicillins AdvReac Hives Verified 06/04/23 10:50 Review of Systems Review of Systems Narrative: All other systems reviewed with the patient and are negative unless otherwise stated. Exam Vital Signs (past 8 hours): - 06/04/23 11:08 06/04/23 15:09 06/04/23 15:14 Temperature 97.3 F L 97.8 F Pulse Rate 73 106 H 108 H Respiratory Rate 20 16 22 Blood Pressure 171/82 H 132/99 H 129/80 Pulse Oximetry 96 97 94 Oxygen Delivery Method Room Air Simple Mask Simple Mask Oxygen Flow Rate 20 06/04/23 15:19 06/04/23 15:25 06/04/23 15:29 Temperature 97 F L Pulse Rate 103 H 103 H 100 H Respiratory Rate 16 14 17 Blood Pressure 153/72 H 130/62 104/54 L Pulse Oximetry 94 93 91 Oxygen Delivery Method Room Air Room Air Room Air Oxygen Flow Rate 06/04/23 15:35 06/04/23 15:40 06/04/23 15:53 Temperature Pulse Rate 103 H 92 H 84 Respiratory Rate 14 21 15 Blood Pressure 115/52 L 116/51 L 116/53 L Pulse Oximetry 90 L 90 L 94 Oxygen Delivery Method Room Air Room Air Room Air Oxygen Flow Rate 06/04/23 16:06 Temperature Pulse Rate 85 Respiratory Rate 15 Blood Pressure 129/63 Pulse Oximetry 92 Oxygen Delivery Method Room Air Oxygen Flow Rate Oxygen Delivery Method Room Air Oxygen Flow Rate 20 Narrative Exam Narrative: GEN: no acute distress HEENT: moist mucous membranes, PERRL NECK: trachea midline, no JVD CV: regular rate and rhythm, no murmurs PULM: clear bilaterally ABD: soft, nontender, nondistended, no organomegaly EXT: warm and well perfused with no edema, L foot wrapped in post-op gauze with surgical shoe NEURO: awake, alert, oriented, no focal deficits Objective Labs 06/04/23 15:45 06/04/23 15:45 Labs: Laboratory Results - last 24 hr 06/04/23 15:45 WBC 7.2 RBC 4.48 L Hgb 13.5 Hct 40.0 L MCV 89.2 MCH 30.1 MCHC 33.8 RDW 14.1 Plt Count 201 Neut % (Auto) 66.6 Lymph % (Auto) 23.8 L [place] % (Auto) 7.8 Eos % (Auto) 1.5 L Baso % (Auto) 0.3 Neut # (Auto) 4800 Lymph # (Auto) 1700 [place] # (Auto) 600 Eos # (Auto) 100 Baso # (Auto) 0 Sodium 139 Potassium 4.0 Chloride 104 Carbon Dioxide 31 BUN 26 H Creatinine 0.88 Estimated GFR > 60 BUN/Creatinine Ratio 29.5 H Glucose 148 H Calcium 8.7 Magnesium 2.0 Total Creatine Kinase 42 L Troponin I < 0.012 Assessment & Plan Assessment & Plan narrative: # intraop bradycardia, with concern for heart block -patient had HR in 20-30's for 5 min during toe surgery, received atropine 0.4mg x2 with improvement in HR -obtain echo -atropine PRN -continue metop XL 25mg BID -tele and watch for bradycardic episodes # DM2 -sliding scale insulin -A1c 8.3% # BPH -continue finasteride and terazosin # HTN -continue losartan and felodipine Code status is full code. DVT prophylaxis with Lovenox. Proxy is friend Thompson. I have reviewed home meds and used all available resources to reconcile the home meds. Case discussed with ED physician/APC and patient will be admitted to the hospitalist service for further workup and management. This patient will be admitted as observation and will require less than 2 midnights of hospital time to treat bradycardia observation.
--- NOTE | 2023-06-04 17:02 | P.OP_ITS ---
Operative Date/Time/Diagnoses Date of procedure: 06/04/23 Time of procedure: 15:46 Pre-op diagnosis: Type 1 diabetes with foot ulcer e10.621 Post-op diagnosis: same Procedure & Clinicians Procedure: Excisional debridement ulcer left foot CPT code 57287 left Bone biopsy foot CPT code 43285, separate incision +59 Same procedure as scheduled: Yes Indications: Patient is a 35-year-old type 1 diabetic is dependent on peritoneal dialysis. He is on transplant list but developed a diabetic left forefoot ulcer. He has been treated in wound care extensively but has developed a large fleshy callus where the ulcer was located that is inhibiting his ambulation and concerning for underlying osteomyelitis. He is trying to get his care coordinated with Wound Care and Infectious Disease in his transplant Medicine and surgical team so that he can not remain a candidate for transplant. Orthopedics was consulted for ulcer debridement and bone biopsy. He has been indicated for ulcer debridement and bone biopsy. He understands that he may need to return to Wound Care. He may require additional antibiotics if infection is found. The risks and benefits of the procedure have been discussed with the patient and given the opportunity to ask questions. The risks of surgery include but are not limited to infection, malunion, nonunion, persistence of pain, damage to nerves and blood vessels, posttraumatic arthritis, additional surgery, amputation, DVT, PE, cardiopulmonary complications and . The patient expressed a thorough understanding of the risks and benefits of surgery and has elected to proceed. Consent was signed. Surgeon: Peace Waters Click Yes if Unassisted: Yes Operative Notes Findings: Very large fleshy callus plantar 1st metatarsal left foot with underlying ulceration. No gross purulence. Abuts the plantar aspect of the sesamoids. No obvious involved bone. Separate incision 1st metatarsal head bone biopsy with jamshidi trocar Closure Type: primary Specimen(s): other (Tissue and swab sent for culture. Bone sent for bacterial PCR and culture) Estimated Blood Loss (mL): 5 Blood products transfused: none Tourniquet time (min): 0 Procedure in detail: Patient was seen in the preoperative area the site of surgery was marked informed consent confirmed. The patient was brought to the operating room by the anesthesia team positioned in the supine position. General anesthetic was administered. The left lower extremity was prepped and draped in the standard sterile fashion a formal time-out procedure was performed confirming the patient's side and site of surgery administration of appropriate preoperative antibiotic. All were in agreement. This was 2 g of Ancef. Attention turned to the left lower extremity. No tourniquet was used. There was a large fleshy plantar callus at the level of the plantar 1st MTP joint. This was sharply debrided using several 15 blade carefully paring down the callus. Once this was deep enough central thin area or ulceration was encountered this corresponded with a small area of fluid that was seen on the MRI sagittal slices at the level of the sesamoids. A separate 15 blade was used to incise longitudinally through this area small amount of fluid was encountered. This was not grossly purulent. Cultures were taken. Cavity was opened and tissue excised for culture. The large amount of redundant callus around the central ulceration was excised. Then the area was copiously irrigated with several L of saline. The depth of the ulceration abutted the plantar surface of the sesamoids but did not obviously track intra-articular. Once this was completed the wound was closed primarily with 2-0 PDS and 2-0 nylon suture. There was some edema and lucency noted on the plain x-rays and MRI at the 1st metatarsal head thought to be either potentially infectious or arthritic. Separate incision was made just medial to the metatarsal head and dissected bluntly down to bone. A jam she had a needle was advanced into the metatarsal head and neck for a core bone biopsy sample to be sent for culture and bacterial PCR. The trocar was removed the wound was irrigated and closed with a 3-0 nylon suture. This completed the procedure. Incisions were washed. 20 cc of 0.25% Marcaine with epinephrine were injected for local anesthesia. A sterile dressing was placed with Xeroform gauze Kerlix and an Gilberto wrap. Patient was woken from anesthesia and taken to recovery room in good condition there were no immediate complications with the procedure. All counts were correct. Complications: none Post-operative Condition: stable Disposition: PACU Plan for aftercare: Heel weight-bearing and forefoot offloading shoe. Keep dressing clean dry and intact. We will follow up cultures. Sutures will remain in place until orthopedic follow-up. No current need to return to Wound Care but if has difficulty after suture remov al then may need additional wound care.
[2023-06-04 17:21] LABS: Hemoglobin A1C% w Est Avg Glu 8.4 % (4.0-6.0)
[2023-06-04] MEDS: INSULIN LISPRO 100 UNIT/ML 3ML VIAL SUBCUT (17:40)
[2023-06-04] MEDS: ATORVASTATIN 20 MG TABLET 40 MG PO (21:03)
[2023-06-04] MEDS: METOPROLOL ER 25 MG TABLET PO (21:04)
[2023-06-04] MEDS: TERAZOSIN 5 MG CAPSULE PO (21:05)
[2023-06-05] VITALS (10 sets, daily range): BP systolic 143–171; BP diastolic 62–75; PULSE 60–73; RESP 14–18; TEMP 36.8–37.6; O2SAT 92–97
[2023-06-05] MEDS: PANTOPRAZOLE DR 20 MG TABLET PO (05:15)
[2023-06-05] MEDS: HYDROCODONE/ACET 5/325 TABLET 1 TAB PO ×2 (05:15→14:33)
[2023-06-05 06:09] LABS: Add Manual Diff / Slide Review NO; Basophils Absolute Auto 0 /uL (0-100); Basophils Percent Auto 0.3 % (0-2); Eosinophils Absolute Auto 100 /uL (0-450); Eosinophils Percent Auto 0.9 % (2-4); Hematocrit 39.5 % (41-53); Hemoglobin 13.5 g/dL (13.5-17.5); Lymphocytes Absolute Auto 1300 /uL (1100-4500); Lymphocytes Percent Auto 14.6 % (25-40); Mean Corpuscular HGB Conc 34.1 % (30-36); Mean Corpuscular Hemoglobin 30.5 PG (26-34); Mean Corpuscular Volume 89.3 fL (80-100); Monocytes Absolute Auto 700 /uL (0-900); Monocytes Percent Auto 8.1 % (3-14); Neutrophils Absolute Auto 7000 /uL (1500-7000); Neutrophils Percent Auto 76.1 % (50-75); Platelet Count 210 X10^3/uL (150-400); Red Blood Cell Count 4.42 X10^6/uL (4.5-5.9); Red Cell Distribution Width 13.8 % (11.6-14.8); White Blood Cell Count 9.1 X10^3/uL (4.5-11.0)
[2023-06-05 06:19] LABS: BUN Creatinine Ratio 24.7 (6-22); Blood Urea Nitrogen 21 mg/dL (9-20); Calcium 8.5 mg/dL (8.4-10.2); Carbon Dioxide 32 mmol/L (22-32); Chloride 103 mmol/L (98-107); Estimated Glomerular Filt Rate > 60 mL/min (>60); Glucose 139 mg/dL (80-110); HEMOLYSIS < 15 (0-50); Potassium 4.3 mmol/L (3.4-5.1); Sodium 136 mmol/L (137-145)
[2023-06-05 06:20] LABS: Magnesium 2.1 mg/dL (1.6-2.3)
[2023-06-05 06:30] LABS: Troponin I 0.023 ng/mL (0.01-0.034)
[2023-06-05] MEDS: METOPROLOL ER 25 MG TABLET PO (09:37)
[2023-06-05] MEDS: hydroCHLOROthiazide 25 MG TABLET PO (09:38)
[2023-06-05] MEDS: AMLODIPINE 5 MG TABLET PO ×2 (09:38→18:11)
[2023-06-05] MEDS: FINASTERIDE 5 MG TABLET PO (09:38)
[2023-06-05] MEDS: LOSARTAN 50 MG TABLET 100 MG PO (09:38)
[2023-06-05] MEDS: ENOXAPARIN 40 MG/0.4 ML SYRINGE SUBCUT (09:39)
--- NOTE | 2023-06-05 10:35 | PM.PNPO.1 ---
Subjective Subjective Interval history: Roni is a pleasant 82-year-old male who is POD#1 s/p claw toe correction left 4th toe and partial amputation left foot 3rd toe by Dr. Waters. He reports pain is mild and well controlled with oral pain medication. He does live alone but states he feels comfortable with being able to care for himself after discharged from the hospital. Denies fever, chills, chest pain, shortness of breath, nausea, vomiting. Exam Vital Signs (past 8 hours): - 06/05/23 04:16 06/05/23 08:00 06/05/23 09:37 Temperature 99.6 F 98.6 F Pulse Rate 71 70 70 Respiratory Rate 18 14 Blood Pressure 147/66 H 145/70 H 145/70 H Pulse Oximetry 95 95 Oxygen Flow Rate 0 06/05/23 09:38 Temperature Pulse Rate 70 Respiratory Rate Blood Pressure 145/70 H Pulse Oximetry Oxygen Flow Rate Oxygen Delivery Method Room Air Oxygen Flow Rate 0 Const General: cooperative Resp Effort & Inspection: normal respiratory effort and able to speak in complete sentences Skin Other: Dressing is clean and dry, gauze is without drainage. Neuro General: patient alert, patient awake and patient oriented x3 Other: No sensation in the toes bilaterally, this is not new for the patient. Calves soft and non-tender bilaterally. Psych Mental Status: mental status grossly normal Speech and Movement: speech and movement normal Objective Labs 06/05/23 05:55 06/05/23 05:55 Labs: Laboratory Results - last 24 hr 06/04/23 06/05/23 15:45 05:55 WBC 7.2 9.1 RBC 4.48 L 4.42 L Hgb 13.5 13.5 Hct 40.0 L 39.5 L MCV 89.2 89.3 MCH 30.1 30.5 MCHC 33.8 34.1 RDW 14.1 13.8 Plt Count 201 210 Neut % (Auto) 66.6 76.1 H Lymph % (Auto) 23.8 L 14.6 L [place] % (Auto) 7.8 8.1 Eos % (Auto) 1.5 L 0.9 L Baso % (Auto) 0.3 0.3 Neut # (Auto) 4800 7000 Lymph # (Auto) 1700 1300 [place] # (Auto) 600 700 Eos # (Auto) 100 100 Baso # (Auto) 0 0 Sodium 139 136 L Potassium 4.0 4.3 Chloride 104 103 Carbon Dioxide 31 32 BUN 26 H 21 H Creatinine 0.88 0.85 Estimated GFR > 60 > 60 BUN/Creatinine Ratio 29.5 H 24.7 H Glucose 148 H 139 H Hemoglobin A1c 8.4 H Calcium 8.7 8.5 Magnesium 2.0 2.1 Total Creatine Kinase 42 L Troponin I < 0.012 0.023 TSH 5.70 H Free T4 1.50 PFSH Medical History PVCs (premature ventricular contractions) First degree AV block LBBB (left bundle branch block) Neuropathy Diabetic Charcot foot Hammertoe of left foot Diabetic foot infection Osteoarthritis of foot, left Fracture of sesamoid bone of foot, closed Foot pain, left Diabetes mellitus Coronary artery disease BPH (benign prostatic hyperplasia) Hypertension Hyperlipidemia Sleep apnea (~1999) Chronic cough (~2005) Allergies Foot pain (~2009) Ankle pain (~2014) Recurrent sinusitis (~1993) Cardiac arrhythmia Surgical History Hx of foot surgery (09/19/22) Anesthesia History of appendectomy History of quadruple bypass (2010) Family History Father Cancer Social History household members: none Smoking Status: Former smoker alcohol intake: current eating out: 1-3 times/week Type(s) of exercise: other Assessment & Plan Post-op Postoperative Procedures: Procedures Operation Date: 06/04/23 12:45 Actual Procedure Side Surgeon p Partial Amputation 3rd toe left foot, claw toe correction 4th toe Left Peace Waters MD Postoperative status narrative: Stable Postoperative plan narrative: 1) weightbearing as tolerated 2) Follow-up at [facility] in 2 weeks for a postop appointment, wound check. 3) Keep dressing clean dry and intact until follow up. Cleared by orthopedics, will d/c to home once cleared by medicine.
--- NOTE | 2023-06-05 12:26 | PM.PN.1 ---
Subjective Subjective Interval history: No chest pain, dyspnea, or recent reports of syncope. Exam Vital Signs (past 8 hours): - 06/05/23 08:00 06/05/23 09:37 06/05/23 09:38 Temperature 98.6 F Pulse Rate 70 70 70 Respiratory Rate 14 Blood Pressure 145/70 H 145/70 H 145/70 H Pulse Oximetry 95 Oxygen Delivery Method Room Air Oxygen Flow Rate 0 Narrative Exam Narrative: NAD, alert and oriented. Fluent speech. Lungs are clear, normal rate and effort. Heart is regular, no murmur gallop or rub. Abdomen is soft, non distended. Extremities are free of edema. Objective ECG Impression: Sinus rhythm, long MT and left bundle. Labs 06/05/23 05:55 06/05/23 05:55 Labs: Laboratory Results - last 24 hr 06/04/23 06/05/23 15:45 05:55 WBC 7.2 9.1 RBC 4.48 L 4.42 L Hgb 13.5 13.5 Hct 40.0 L 39.5 L MCV 89.2 89.3 MCH 30.1 30.5 MCHC 33.8 34.1 RDW 14.1 13.8 Plt Count 201 210 Neut % (Auto) 66.6 76.1 H Lymph % (Auto) 23.8 L 14.6 L [place] % (Auto) 7.8 8.1 Eos % (Auto) 1.5 L 0.9 L Baso % (Auto) 0.3 0.3 Neut # (Auto) 4800 7000 Lymph # (Auto) 1700 1300 [place] # (Auto) 600 700 Eos # (Auto) 100 100 Baso # (Auto) 0 0 Sodium 139 136 L Potassium 4.0 4.3 Chloride 104 103 Carbon Dioxide 31 32 BUN 26 H 21 H Creatinine 0.88 0.85 Estimated GFR > 60 > 60 BUN/Creatinine Ratio 29.5 H 24.7 H Glucose 148 H 139 H Hemoglobin A1c 8.4 H Calcium 8.7 8.5 Magnesium 2.0 2.1 Total Creatine Kinase 42 L Troponin I < 0.012 0.023 TSH 5.70 H Free T4 1.50 PFSH Medical History PVCs (premature ventricular contractions) First degree AV block LBBB (left bundle branch block) Neuropathy Diabetic Charcot foot Hammertoe of left foot Diabetic foot infection Osteoarthritis of foot, left Fracture of sesamoid bone of foot, closed Foot pain, left Diabetes mellitus Coronary artery disease BPH (benign prostatic hyperplasia) Hypertension Hyperlipidemia Sleep apnea (~1999) Chronic cough (~2005) Allergies Foot pain (~2009) Ankle pain (~2014) Recurrent sinusitis (~1993) Cardiac arrhythmia Surgical History Hx of foot surgery (09/19/22) Anesthesia History of appendectomy History of quadruple bypass (2010) Family History Father Cancer Social History household members: none Smoking Status: Former smoker alcohol intake: current eating out: 1-3 times/week Type(s) of exercise: other Assessment & Plan Assessment & Plan narrative: 1. Bradycardia, with concern for heart block. Present on admission and active. 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 Deras. Some of his tracings look like he might have intermittent block, others reveal his first-degree and left bundle. Dr. Deras recommends stopping metoprolol and observing overnight. We will likely discharge with a Holter at that point. -stop metoprolol. 2. DM2, present on admission and stable. -sliding scale insulin -A1c 8.3% -cont current medications. 3. BPH, stable. -continue finasteride and terazosin 4. HTN, stable. -continue losartan and felodipine -stop metoprolol. 5. S/P toe amputation.
--- NOTE | 2023-06-05 15:26 | CM.DANOTE ---
Initial DCP Assessment Visit Note Reviewed EMR and team rounds for pt's medical status and updates. Met with pt at bedside to introduce self and role, pt found to be alert/oriented and able to discuss his needs/preferences for d/c once medically cleared. He resides independently in his own home in [place], is , but has friends that assist him when needed. One of those friends is planning to transport pt home when ready. Payor: [facility] PCP: Dr. Meier Pt is a 82 year-old M post-op day 1 for surgery and amputation of his L-third toe, and fixation of his fourth toe for deformity. He has a PNH of diabetes, heart disease, CAD, and arthritis. He shared that he had a persistent wound and swelling on his L-third toe for months that was getting worse. Ortho evaluation diagnosis was osteomyelitis, and agreement was made for amputation due to non-healing infection. Following surgery, he was taken to the PACU and experienced a 5-minute long episode of bradycardia, cardiac instability, then HR dropped. He was treated and placed in OBS for the next 24-48 hours with ECHO, telemetry monitoring for cardiac stability. No anticipated home d/c needs identified at this time. DCP will continue to follow and assist with any further evolving d/c needs. Discharge Planning/Care Management CM Discharge Assessment Start: 06/05/23 15:19 Freq: Status: Active Protocol: Document 06/05/23 15:19 DPL (Rec: 06/05/23 15:26 DPL [id number]) Discharge Planning Assessment Assigned Franchise Consultant DIVINE Borges Advance Directives? Yes Advance Directives on File No History Provided By Patient,Medical Record Expected Length of Stay 2 Has Patient been admitted in last 30 No days? Prior Living Arrangements House Household Members none Type of transporation used prior to Drives own vehicle admit Independent with ADL's Yes Is patient alert and oriented? Yes Comment N/A Caregiver for Another No Barriers to Discharge No Discharge Plan Home Referrals Initiated None needed Whiteboard Updated in Patient Room with Yes name and ext. # of Franchise Consultant Review Status In Process Please Provide Date Initial DC 06/05/23 Assessment Was Performed Pre-Anesthesia Assessment Start: 06/02/23 13:17 Freq: Status: Active Protocol: Document 06/02/23 13:17 CAB (Rec: 06/02/23 13:25 CAB [id number]) Pre-Anesthesia Assessment Patient Information Reviewed Via Chart Review Primary Care Provider Ke Meier Seen Specialist in Last 12 Months Yes Specialist Seen Orthopedist Primary Language [place]ander White Sugar Syrup Operator Required No Height 180.34 cm Weight 104.326 kg Body Mass Index (BMI) 32.1 Hx Anesthesia Reactions No Hx Family Anesthesia Reaction No Hx Malignant Hyperthermia No Hx Blood Transfusion Reaction No Anesthesia Review Requested No Boat Hop No alcohol intake current alcohol intake frequency holidays/special occasions only Smoking Status Former smoker Substance Use Type does not use Musculoskeletal Symptoms Amputation Patient is completely paralyzed or No completely immobile Mental Status Oriented to own ability Is patient on oxygen? No Hx Sleep Apnea Yes CPAP/BIPAP use prescribed and used routinely Currently Taking a Beta Davida Yes: Metoprolol Anti-Coagulant Therapy No Cardiac Testing No Hx Pacemaker/ICD No Pacemaker Rep Required? No Urinary Catheter Present No Hx Urinary Self Catheterization No Diabetes Yes HgbA1C 8.5 Date 05/13/23 Comment Up from 7.9 on 02/03/23. BG 311 on labs 05/13/23 Presence of External or Internal Medical Yes: Sternal wires(CABG) Devices Received a COVID vaccine? Yes Marital Status / Lives With none Patient Discharge Plan Description Return Home Advance Directives? Yes Advance Directives on File No Power of Car Framer No
[2023-06-05] MEDS: ATORVASTATIN 20 MG TABLET 40 MG PO (20:41)
[2023-06-05] MEDS: TERAZOSIN 5 MG CAPSULE PO (20:41)
[2023-06-06 04:00] VITALS: BP 147/72; PULSE 73; RESP 16; TEMP 37.3; O2SAT 95
[2023-06-06] MEDS: PANTOPRAZOLE DR 20 MG TABLET PO (06:17)
[2023-06-06 06:18] LABS: Add Manual Diff / Slide Review NO; Basophils Absolute Auto 0 /uL (0-100); Basophils Percent Auto 0.2 % (0-2); Eosinophils Absolute Auto 100 /uL (0-450); Eosinophils Percent Auto 1.4 % (2-4); Hematocrit 38.6 % (41-53); Hemoglobin 13.2 g/dL (13.5-17.5); Lymphocytes Absolute Auto 1400 /uL (1100-4500); Lymphocytes Percent Auto 17.9 % (25-40); Mean Corpuscular HGB Conc 34.1 % (30-36); Mean Corpuscular Hemoglobin 30.2 PG (26-34); Mean Corpuscular Volume 88.6 fL (80-100); Monocytes Absolute Auto 800 /uL (0-900); Neutrophils Absolute Auto 5400 /uL (1500-7000); Neutrophils Percent Auto 70.5 % (50-75); Platelet Count 186 X10^3/uL (150-400); Red Blood Cell Count 4.36 X10^6/uL (4.5-5.9); Red Cell Distribution Width 14.1 % (11.6-14.8); White Blood Cell Count 7.6 X10^3/uL (4.5-11.0)
[2023-06-06] MEDS: HYDROCODONE/ACET 5/325 TABLET 1 TAB PO (06:29)
[2023-06-06 06:48] LABS: BUN Creatinine Ratio 26.8 (6-22); Blood Urea Nitrogen 22 mg/dL (9-20); Calcium 8.6 mg/dL (8.4-10.2); Carbon Dioxide 32 mmol/L (22-32); Chloride 103 mmol/L (98-107); Estimated Glomerular Filt Rate > 60 mL/min (>60); Glucose 139 mg/dL (80-110); HEMOLYSIS < 15 (0-50); Potassium 3.8 mmol/L (3.4-5.1); Sodium 137 mmol/L (137-145)
[2023-06-06 06:49] LABS: Magnesium 2.1 mg/dL (1.6-2.3)
--- NOTE | 2023-06-06 07:12 | PM.PNPO.1 ---
Subjective Subjective Date Patient Seen: 06/06/23 Time Patient Seen: 07:12 Interval history: Patient's find found sitting comfortably by the window. He states he is feeling well denies any fever or chills. Denies any chest pain or shortness of breath. Says he has pre-existing numbness along the surgical site, but no pain. Feels he is able to be discharged back home today Exam Vital Signs (past 8 hours): - 06/05/23 23:32 06/06/23 04:00 Temperature 99.2 F 99.1 F Pulse Rate 60 73 Respiratory Rate 16 16 Blood Pressure 151/62 H 147/72 H Pulse Oximetry 97 95 Oxygen Flow Rate 0 0 Oxygen Delivery Method Room Air Oxygen Flow Rate 0 Narrative Exam Narrative: Dressing appears to be well-maintained. Patient is able to maneuver the exposed 1st and 5th toe. Sensation is grossly intact. Capillary refills less than 2 seconds. Resp Effort & Inspection: normal respiratory effort and able to speak in complete sentences Objective Labs 06/06/23 05:50 06/06/23 05:50 Labs: Laboratory Results - last 24 hr 06/06/23 05:50 WBC 7.6 RBC 4.36 L Hgb 13.2 L Hct 38.6 L MCV 88.6 MCH 30.2 MCHC 34.1 RDW 14.1 Plt Count 186 Neut % (Auto) 70.5 Lymph % (Auto) 17.9 L [place] % (Auto) 10.0 Eos % (Auto) 1.4 L Baso % (Auto) 0.2 Neut # (Auto) 5400 Lymph # (Auto) 1400 [place] # (Auto) 800 Eos # (Auto) 100 Baso # (Auto) 0 Sodium 137 Potassium 3.8 Chloride 103 Carbon Dioxide 32 BUN 22 H Creatinine 0.82 Estimated GFR > 60 BUN/Creatinine Ratio 26.8 H Glucose 139 H Calcium 8.6 Magnesium 2.1 PFSH Medical History PVCs (premature ventricular contractions) First degree AV block LBBB (left bundle branch block) Neuropathy Diabetic Charcot foot Hammertoe of left foot Diabetic foot infection Osteoarthritis of foot, left Fracture of sesamoid bone of foot, closed Foot pain, left Diabetes mellitus Coronary artery disease BPH (benign prostatic hyperplasia) Hypertension Hyperlipidemia Sleep apnea (~1999) Chronic cough (~2005) Allergies Foot pain (~2009) Ankle pain (~2014) Recurrent sinusitis (~1993) Cardiac arrhythmia Surgical History Hx of foot surgery (09/19/22) Anesthesia History of appendectomy History of quadruple bypass (2010) Family History Father Cancer Social History household members: none Smoking Status: Former smoker alcohol intake: current eating out: 1-3 times/week Type(s) of exercise: other Assessment & Plan Post-op Postoperative Procedures: Procedures Operation Date: 06/04/23 12:45 Actual Procedure Side Surgeon p Partial Amputation 3rd toe left foot, claw toe correction 4th toe Left Peace Waters MD Postoperative day: 2 Postoperative status: doing well Postoperative status narrative: Patient is ready to be discharged pending Medicine approval. Patient is cleared by orthopedics to be discharged. Postoperative plan: routine post-op care Postoperative plan narrative: ) weightbearing as tolerated 2) Follow-up at [facility] in 2 weeks for a postop appointment, wound check. 3) Keep dressing clean dry and intact until follow up. Time Spent With Patient Time with patient: less than 15 minutes Quality VTE Deep Vein Thrombosis/Pulmonary Embolism Present on Admission: No
[2023-06-06 08:00] VITALS: BP 131/63; PULSE 71; RESP 16; TEMP 36.6; O2SAT 94
[2023-06-06 08:12] VITALS: BP 131/63; PULSE 71
[2023-06-06 08:17] VITALS: BP 131/63; PULSE 71
[2023-06-06] MEDS: LOSARTAN 50 MG TABLET 100 MG PO (08:17)
[2023-06-06] MEDS: ASPIRIN EC 81 MG TABLET PO (08:18)
[2023-06-06] MEDS: AMLODIPINE 5 MG TABLET PO (08:18)
[2023-06-06] MEDS: hydroCHLOROthiazide 25 MG TABLET PO (08:18)
[2023-06-06] MEDS: FINASTERIDE 5 MG TABLET PO (08:18)
--- NOTE | 2023-06-06 09:18 | P.DS_ITS ---
History of Present Illness History of Present Illness Chief complaint: Left Toe Amputation Narrative: Roni Sage is an 82yo M with PMH of LBBB, DM2, HTN, HLD, BPH, CAD and NANCY who presents from PACU as postop for hammertoe surgery where he had a 5 min episode of bradycardia in 20-30's. Per anesthesia, patient's OR case was going well, then his HR dipped into the 20's and may have showed a heart block. She pushed 2 doses of IV atropine 0.4mg and HR shot up into what looked like A-fib RVR then back into NSR with LBBB. Patient doing well in PACU, but will be monitored overnight on tele. Patient denies any symptoms currently. Trops negative. Electrolytes including mag and K are in good range. He denies CP, SOB, NV, abd pain or diarrhea. Discharge Providers Provider Date of admission: 06/04/23 16:14 Discharge Date: 06/06/23 Primary care physician: Ke Meier MD Consults: Spoke with cardiology at [facility] by phone. Discharge provider: Ciro Pace MD Summary Hospital Course Discharge Diagnosis: 1. Transient Wenkeback block, resolved. 2. Chronic type 1 AVB and LBBB 3. HTN 4. CAD 5. S/P toe amputation. 6. DM 2. Hospital Course: Patient was admitted for a toe amputation. He has a longstanding type 1 av block with a prolonged DC as well as a left bundle branch block. He is on metoprolol chronically and did have transient Wenckebach in the postoperative area. He was discussed with [facility] television installer Dr. Deras and metoprolol will be held indefinitely. Amlodipine was started for blood pressure control. Over the last 12 hours of observation he had no evidence of block. He is advised to follow up with his television installer nurse practitioner within the next week for repeat ECG. Status at Discharge Cognitive/behavioral status at discharge: oriented Functional status at discharge: independent ambulation Overall status at discharge: patient is back to baseline Time Spent with Patient Time spent: Greater than 30 minutes Exam Vital Signs (past 8 hours): - 06/06/23 04:00 06/06/23 08:00 06/06/23 08:12 Temperature 99.1 F 97.9 F Pulse Rate 73 71 71 Respiratory Rate 16 16 Blood Pressure 147/72 H 131/63 131/63 Pulse Oximetry 95 94 Oxygen Flow Rate 0 0 06/06/23 08:17 Temperature Pulse Rate 71 Respiratory Rate Blood Pressure 131/63 Pulse Oximetry Oxygen Flow Rate Oxygen Delivery Method Room Air Oxygen Flow Rate 0 Narrative Exam Narrative: NAD, alert and oriented. Fluent speech. Lungs are clear, normal rate and effort. Heart is regular, no murmur gallop or rub. Abdomen is soft, non distended. Extremities are free of edema. Objective Labs 06/06/23 05:50 06/06/23 05:50 Labs: Laboratory Results - last 24 hr 06/06/23 05:50 WBC 7.6 RBC 4.36 L Hgb 13.2 L Hct 38.6 L MCV 88.6 MCH 30.2 MCHC 34.1 RDW 14.1 Plt Count 186 Neut % (Auto) 70.5 Lymph % (Auto) 17.9 L Dillingham % (Auto) 10.0 Eos % (Auto) 1.4 L Baso % (Auto) 0.2 Neut # (Auto) 5400 Lymph # (Auto) 1400 Dillingham # (Auto) 800 Eos # (Auto) 100 Baso # (Auto) 0 Sodium 137 Potassium 3.8 Chloride 103 Carbon Dioxide 32 BUN 22 H Creatinine 0.82 Estimated GFR > 60 BUN/Creatinine Ratio 26.8 H Glucose 139 H Calcium 8.6 Magnesium 2.1 PFSH Medical History PVCs (premature ventricular contractions) First degree AV block LBBB (left bundle branch block) Neuropathy Diabetic Charcot foot Hammertoe of left foot Diabetic foot infection Osteoarthritis of foot, left Fracture of sesamoid bone of foot, closed Foot pain, left Diabetes mellitus Coronary artery disease BPH (benign prostatic hyperplasia) Hypertension Hyperlipidemia Sleep apnea (~1999) Chronic cough (~2005) Allergies Foot pain (~2009) Ankle pain (~2014) Recurrent sinusitis (~1993) Cardiac arrhythmia Surgical History Hx of foot surgery (09/19/22) Anesthesia History of appendectomy History of quadruple bypass (2010) Family History Father Cancer Social History household members: none Smoking Status: Former smoker alcohol intake: current eating out: 1-3 times/week Type(s) of exercise: other Discharge Assessment & Plan Assessment and Plan Assessment: 1. Transient Wenkeback block, resolved. 2. Chronic type 1 AVB and LBBB 3. HTN 4. CAD 5. S/P toe amputation. 6. DM 2. Plan of Treatment: Discharge without metoprolol and starting Amlodipine 5 daily. Discharge Plan Discharge Plan Patient Disposition: Home Provider Discharge Comment: Stable for discharge off Metoprolol. Discharge orders & Medications Prescriptions: New amlodipine 5 mg tablet 5 mg PO DAILY Qty: 30 2RF Continued (DME) lancets [RelatientTouch [employer] Lancets] 33 gauge misc See Rx Instructions .ROUTE .MEDSUPPLY Qty: 100 0RF Rx Instructions: As directed (DME) blood-glucose meter [Blood Glucose Monitoring] Kit See Rx Instructions .ROUTE .MEDSUPPLY Qty: 1 0RF Rx Instructions: As directed OneTouch Verio test strips Strip See Rx Instructions .ROUTE .COMPLEX Qty: 100 3RF Dose Instruction: USE DIRECTED DAILY Rx Instructions: USE DIRECTED DAILY Complete Multivitamin Tablet 1 tab PO DAILY Qty: 90 3RF Parking Permit... 1 unit Not Applicable .continuous Qty: 1 0RF Farxiga 10 mg tablet 10 mg PO QAM Qty: 90 0RF felodipine 5 mg tablet extended release 24 hr See Rx Instructions .ROUTE .COMPLEX Qty: 90 3RF Dose Instruction: TAKE 1 TABLET DAILY Rx Instructions: TAKE 1 TABLET DAILY finasteride 5 mg tablet See Rx Instructions .ROUTE .COMPLEX Qty: 90 3RF Dose Instruction: TAKE 1 TABLET DAILY Rx Instructions: TAKE 1 TABLET DAILY losartan-hydrochlorothiazide 100-25 mg tablet See Rx Instructions .ROUTE .COMPLEX Qty: 90 3RF Dose Instruction: TAKE 1 TABLET DAILY Rx Instructions: TAKE 1 TABLET DAILY omeprazole 20 mg capsule,delayed release(DR/EC) See Rx Instructions .ROUTE .COMPLEX Qty: 90 3RF Dose Instruction: TAKE 1 CAPSULE DAILY Rx Instructions: TAKE 1 CAPSULE DAILY rosuvastatin 20 mg tablet See Rx Instructions .ROUTE .COMPLEX Qty: 90 3RF Dose Instruction: TAKE 1 TABLET DAILY Rx Instructions: TAKE 1 TABLET DAILY terazosin 10 mg capsule See Rx Instructions .ROUTE .COMPLEX Qty: 90 3RF Dose Instruction: TAKE 1 CAPSULE AT BEDTIME Rx Instructions: TAKE 1 CAPSULE AT BEDTIME Discontinued metoprolol succinate 25 mg tablet extended release 24 hr See Rx Instructions .ROUTE .COMPLEX Qty: 180 3RF Dose Instruction: TAKE 1 TABLET TWICE A DAY Rx Instructions: TAKE 1 TABLET TWICE A DAY No Action aspirin 81 mg Tablet 81 mg PO DAILY Medication counseling provided by Pharmacist: No Follow up/Referrals: Ke Meier MD [Primary Care Provider] - (Appt on May with at 10:30am with a check-in at 10:15am [phone]) Diet/Activity/Treatments Diet: Diet as Tolerated Other treatments: At-Home Instructions - Dr. Waters Surgery: 3rd toe partial amputation, 4th toe claw toe correction Cast/Splint/Dressing Care Instructions 1) Keep cast/dressing clean and dry. 2) May bathe - but cast/dressing must remain dry. 3) Observe for increasing pain in the extremity: finger/toe-tips turning blue/purple, or numbness and tingling in your toes/fingers. Should any of these symptoms arise, you need to be seen immediately for evaluation of swelling and increasing compartment pressures within your affected extremity. 4) Keep your affected extremity elevated -after surgery to minimize swelling. 5) You may ice your extremity, being careful to prevent melting ice from saturating into the splint/cast. Activity Weightbear as tolerated. If provided use a walking boot or shoe. If not provided may wear any footwear that is comfortable Use crutches or a walker for ambulation as needed Discharge Pain Medications You will be given a prescription for pain medication. You should start taking this the same day after your surgery. Wean off as tolerated. Do not wait to take the pain medication until the pain is severe, as it will be difficult to catch up once this occurs. The pain medication usually reaches its full effect ~1 hour after ingesting. If you have been sent home on Colace, this medication should be taken until you are off all narcotic (i.e. Vicodin, Percocet, Oxycodone, etc) pain medications, to prevent constipation. You may also obtain this or another stool softener over the counter to prevent or alleviate constipation. Percocet or Vicodin (Dawn)have Tylenol in their ingredient lists. You must be careful not to exceed 3,000mg (3 grams) of Tylenol, from all sources, within a single 24-hr period. This means that you may not take more than 10 pills within a 24-hr period. Do NOT take Regular or Extra Strength Tylenol when taking your Percocet or Vicodin medications. -IF you have been given a Toradol/ketorolac prescription, this is a very strong anti-inflammatory. Do not take wokh-cgz-yhdtwad anti-inflammatories (ibuprofen, Aleve, Advil, Motrin) while taking the Toradol/ketorolac. Once you are finished with this prescription, then you can resume nots-xiw-zaimjhq anti- inflammatories. You can still take your narcotic pain medication and Tylenol while taking the Toradol/ketorolac. -Some common side effects of the narcotic pain medications (Percocet, Oxycodone, Vicodin, etc.) include nausea and itching. Benadryl is a great over the counter medication that helps calm your stomach, decreases your anxiety levels, and minimizes the itching. You can easily purchase this at your local pharmacy as an wccw-gfv-refpxbd medication. Please abide by the instructions as printed on the bottle. If your nausea persists, make sure to take small amounts of crackers or other certified appliance service technician foods. -If have been given oxycodone 5 mg tablets, try to take the smallest dose needed to control your pain. Generally start with 5 mg every 4 hours as needed for pain. However you can increase this if you are having significant pain. The maximum dosage for oxycodone would be 15 mg or three (5 mg) tablets p.o. every 3 hours as needed for pain. As soon as pain is better controlled you should decrease the amount of medication your taking and increase the interval between doses. If you are given Percocet or Vicodin or Dawn these are medications with the narcotic and Tylenol in them and they were dosing will need to keep in mind the maximum daily dosages for Tylenol/acetaminophen. Follow-Up/Emergency Contacts Please call for an appointment in either [place] or [place], if one has not been scheduled. Follow up 2 weeks after surgery. [phone] Contact the office if you have any of the following: ? Painful swelling or numbness ? Unrelenting pain ? Fever (over 101?- it is normal to have a low grade fever for the first day or two following surgery) or chills ? Redness around the incisions ? Color changes ? Continuous bleeding or drainage from the incision (a small amount is expected) ? Excessive nausea or vomiting ? Difficulty breathing If you have an emergency that requires immediate attention such as shortness of breath or chest pain, call 911 or proceed to the nearest emergency room. Blood Clot Prophylaxis If you are full weight-bearing in regular shoes or in a postoperative shoe, then you do not require blood clot prophylaxis. But if you are in a boot or cast or requiring assistive devices to ambulate, then you will need to complete a total 2-week (14 days) course of Aspirin enteric coated (325 mg daily) after surgery, to minimize the risk of blood clots following surgery. You may alternatively purchase or use rdvj-agz-vkggssi generic equivalent Aspirin. If you already have ?baby? Aspirin (81mg) at home, you can take 4 ?baby? Aspirin (daily) to total 324mg for the equivalent dose. If you have gastric upset with this or a history of gastric bleeding or ulcers, do not take aspirin, please call the office for alternatives. Commence foot and ankle. knee pumps and movement with the nonoperative leg to keep your blood moving and help prevent clots. You can also obtain compression socks of antiembolism hose (CARINA) hose from the drug store to wear on the nonoperative leg and also on the operative leg once the splint or cast is removed. Adjust your position or get up onto your crutches every hour or so just to move around. Pain Medications: It is the policy of [facility] that narcotic medications will only be refilled during office hours. Additionally, due to the alarming rate of narcotic pain medication abuse/dependence, it has become necessary for physician practices to closely manage patient use of prescription narcotic pain relievers, such as Vicodin (Dawn), Percocet, and Oxycodone products. Narcotic pain management in the postoperative period may not exceed 6 weeks. If narcotic pain management is required beyond 90 days, then a referral to a Chronic Pain Specialist will be made. If a request for a medication prescription has been made, the physician must review your chart prior to authorizing the request. Please be patient with office staff. If you call during patient hours, your call may not be returned until the end of the day. Dr. Peace Waters [address] [email or web address] See Cardiology for a repeat ECG within the next week. Skin/Wound/Dressing Care Report to your healthcare provider any signs of infection, such as:: chills, fever, night sweats, increased pain and unusual drainage Visit Report/Discharge Packet Instructions: DI for Toe Amputation, DI for Prescription Opioid Use Stand Alone Forms: Patient Portal/API Discharge Data Primary Care Provider: Ke Meier Attending Provider: Anibal Contreras Admit Date/Time: 06/04/23 16:14 Quality VTE Deep Vein Thrombosis/Pulmonary Embolism Present on Admission: No
--- NOTE | 2023-06-06 11:28 | CM.DPC ---
DCP Cont. Reviewed EMR and team rounds for status updates. Plan is for pt to d/c home today, f/u with Ortho post-op for wound check. Pt's friend will be coming to transport him back home later today. No further DCP needs identified at this time.
== END 2023-06-06 11:20 | disposition home or self-care (01) ==
LOC: OR 06-05 10:50 → AC 06-05 10:50
PROVIDERS: Student in an Organized Health Care Education/Training Program; Admitting Provider Student in an Organized Health Care Education/Training Program; PCP Family Medicine; Referring Provider Orthopaedic Surgery Foot and Ankle Surgery; Visit Provider Student in an Organized Health Care Education/Training Program
PROC: (CPT 28285; principal; 2023-06-04 12:45)
DX: M20.42 Other hammer toe(s) (acquired), left foot (principal); E11.628 Type 2 diabetes mellitus with other skin complications; E11.40 Type 2 diabetes mellitus with diabetic neuropathy, unspecified; R00.1 Bradycardia, unspecified; I10 Essential (primary) hypertension; Z79.4 Long term (current) use of insulin; I25.10 Atherosclerotic heart disease of native coronary artery without angina pectoris; I44.7 Left bundle-branch block, unspecified; I44.1 Atrioventricular block, second degree
CPT/HCPCS: 28285; 28825; 36415; 80048; 82550; 82962; 83036; 83735; 84439; 84443; 84484; 85025; 87070; 87075; 87176; 87205; 93005; 93010; 93306; C1776; G0378; J0461; J0690; J1650; J1815; J2405; J2704; J3010; J7613

== ENCOUNTER → 2023-06-26 07:19 | Outpatient (CLI) | payer MEDICARE, SELFPAY ==
[2023-06-04 18:17] VITALS: BMI 32.1
[2023-06-26 08:29] LABS: Add Manual Diff / Slide Review NO; Basophils Absolute Auto 0 /uL (0-100); Basophils Percent Auto 0.4 % (0-2); Eosinophils Absolute Auto 200 /uL (0-450); Eosinophils Percent Auto 1.9 % (2-4); Hematocrit 41.5 % (41-53); Hemoglobin 13.9 g/dL (13.5-17.5); Lymphocytes Absolute Auto 1900 /uL (1100-4500); Lymphocytes Percent Auto 23.5 % (25-40); Mean Corpuscular HGB Conc 33.6 % (30-36); Mean Corpuscular Hemoglobin 30.1 PG (26-34); Mean Corpuscular Volume 89.8 fL (80-100); Monocytes Absolute Auto 700 /uL (0-900); Monocytes Percent Auto 8.2 % (3-14); Neutrophils Absolute Auto 5300 /uL (1500-7000); Platelet Count 229 X10^3/uL (150-400); Red Blood Cell Count 4.63 X10^6/uL (4.5-5.9); White Blood Cell Count 8.1 X10^3/uL (4.5-11.0)
[2023-06-26 09:06] LABS: Hemoglobin A1C% w Est Avg Glu 8.2 % (4.0-6.0)
[2023-06-26 09:07] LABS: Alanine Aminotransferase 19 IU/L (<50); Albumin 4.2 g/dL (3.5-5.0); Albumin Globulin Ratio 1.3 (1.0-2.8); Alkaline Phosphatase 62 U/L (38-126); Aspartate Aminotransferase 25 IU/L (17-59); Blood Urea Nitrogen 25 mg/dL (9-20); Calcium 9.5 mg/dL (8.4-10.2); Carbon Dioxide 31 mmol/L (22-32); Chloride 102 mmol/L (98-107); Cholesterol 126 mg/dL (140-199); Estimated Glomerular Filt Rate > 60 mL/min (>60); Globulin 3.2 g/dL (1.7-4.1); Glucose 183 mg/dL (80-110); HDL Cholesterol 44 mg/dL (40-60); LDL Cholesterol Calculated 49 mg/dL (<100); Potassium 4.1 mmol/L (3.4-5.1); Sodium 138 mmol/L (137-145); Total Protein 7.4 g/dL (6.3-8.2); Triglycerides 164 mg/dL (35-150)
[2023-06-26 09:08] LABS: HEMOLYSIS 19 (0-50)
[2023-06-26 09:33] LABS: TSH w/ Reflex to FT4 5.73 uIU/mL (0.47-4.68)
[2023-06-26 10:03] LABS: Prostate Specific Antigen Scrn 0.546 ng/mL (0.1-4.0)
[2023-06-26 11:35] LABS: Free T4, Direct Thyroxine 1.17 ng/dL (0.78-2.19)
== END ==
PROVIDERS: PCP Family Medicine; Referring Provider Family Medicine; Visit Provider Family Medicine
DX: Z12.5 Encounter for screening for malignant neoplasm of prostate (principal); I10 Essential (primary) hypertension; E11.42 Type 2 diabetes mellitus with diabetic polyneuropathy; N40.0 Benign prostatic hyperplasia without lower urinary tract symptoms; E78.2 Mixed hyperlipidemia
CPT/HCPCS: 36415; 80053; 80061; 83036; 84439; 84443; 85025; G0103

== ENCOUNTER 2023-08-06 10:01 | Day surgery (SDC) | payer MEDICARE, SELFPAY ==
[2023-06-04 18:17] VITALS: BMI 32.1
[2023-07-30 12:18] VITALS: BMI 32.5
[2023-08-06] VITALS (7 sets, daily range): BP systolic 95–132; BP diastolic 47–69; PULSE 74–82; RESP 12–21; TEMP 36.1–36.9; O2SAT 93–98; BMI 29.9
[2023-08-06] MEDS: LACTATED RINGERS 1,000 ML 42 ML IV (12:00)
--- NOTE | 2023-08-06 13:11 | PM.PREOP ---
Pre-operative Note Interval Note History & Physical reviewed/Exam performed by Physician: Yes Changes to H&P: Yes H&P completed within 30 days and has changed as indicated here:: In interval since his last visit his hardware has now become exposed. His left 4th toe remains swollen. It is consistent with osteomyelitis. We have discussed options for treatment and elected for hardware removal with partial amputation of the 4th toe.
--- NOTE | 2023-08-06 13:29 | SUR.PREOP ---
Block start time 1319 with a time out . Monitoring initiated and maintained throughout procedure. Oxygen and medications given per anesthesiologist instructions. Patient remained stable throughout procedure, no adverse reactions noted. Block end time 1323.
[2023-08-06] MEDS: CEFAZOLIN 2 GM/100 ML PREMIX 100 ML IV (13:36)
--- NOTE | 2023-08-06 13:48 | SUR.OPER ---
Supine on padded OR bed, head on pillow, arms secured on padded arm boards at <90 degrees abduction, legs uncrossed, safety belt at thigh, tape over blanket over lower legs.
--- NOTE | 2023-08-06 13:52 | P.PCN_ITS ---
Peripheral Nerve Block Note Pre-Procedure Reason for block: Attending surgeon request/order for post-op pain management Pre-procedure checklist: Patient examined and chart reviewed, Risks, benefits, alternatives of block discussed, questions answered, Verification of anti- coagulation status, Site confirmed, Timeout performed and Standard ASA monitors applied Consent obtained from: Patient Procedure Date of procedure: 08/06/23 Start Time: 13:17 End Time: 13:23 Performed by: Jamison Marinelli Sedation - enter dose in comment field: IV Midazolam (mg) (1mg) and IV Fentanyl (mcg) (25mcg) Location: Pre-Op Position: Supine Laterality: Left Sterile Technique: Sterile barrier maintained, Sterile gloves, Mask, Sterile drapes, U/S probe cover and Chloraprep Skin Wheal: Lidocaine 1% mL: 5 Gauge: 27 Equipment Single injection - Needle brand, gauge, length: Pajunk 100mm Medications Medications - enter concentration (%) & mL in comment field: Bupivacaine (30ml 0.5%) Incremental aspiration prior to injection: Yes Ultrasound Reason for Ultrasound: U/S guidance used for needle placement Image printed/saved/archived: Yes Limited exam reveals no abnormal findings: Yes Vital signs VS: - 08/06/23 11:40 Temperature 98.1 F Pulse Rate 74 Respiratory Rate 12 Blood Pressure 125/64 Pulse Oximetry 98 Oxygen Delivery Method Room Air Oxygen Delivery Method Room Air Events Nerve Block Events: Procedure uneventful
[2023-08-06] MEDS: BUPIVACAINE 0.25% (PF) VIAL 30 ML INJ (13:56)
--- NOTE | 2023-08-06 14:28 | P.OP_ITS ---
Operative Date/Time/Diagnoses Date of procedure: 08/06/23 Time of procedure: 13:30 Pre-op diagnosis: Exposed hardware left 4th toe, osteomyelitis, left hammertoe, diabetic foot infection Post-op diagnosis: same Procedure & Clinicians Procedure: Partial amputation left 4th toe CPT code 36212 T3 Removal of deep implant CPT code 10080 left Modifier 78 Same procedure as scheduled: Yes Indications: The patient is an 82-year-old male that had a hammertoe correction of his left 4th toe. He has had persistent swelling and drainage was noted to have screw cut-out and backing out on x-ray. He was indicated for hardware removal. On presentation on the date of surgery he has continued swelling and now has exposed hardware out of the toe. There is global swelling of the 4th toe the patient has underlying diabetes he has had multiple partial amputations of his other toes. We discussed options including hardware removal bone biopsy and cu lture directed antibiotics. We discussed additional option of partial toe amputation. We discussed risks of need for additional procedures, prolonged treatment or amputation. The patient has elected with hardware removal and partial left 4th toe amputation today. The risks and benefits of the procedure have been discussed with the patient and given the opportunity to ask questions. The risks of surgery include but are not limited to infection, malunion, nonunion, persistence of pain, damage to nerves and blood vessels, posttraumatic arthritis, DVT, PE, cardiopulmonary complications and . The patient expressed a thorough understanding of the risks and benefits of surgery and has elected to proceed. Consent was signed Surgeon: Peace Waters Click Yes if Unassisted: Yes Anesthesia Type: General, Peripheral nerve block and Local Operative Notes Findings: Global swelling left 4th toe with exposed screw cutting out distal tip of 4th toe. No ascending cellulitis. No fluctuance. No active drainage. Previous healed partial amputations of the 2nd and 3rd toes. Closure Type: primary Specimen(s): other (Bone was sent for Gram stain and anaerobic and aerobic culture. Bone was from the left 4th toe proximal phalanx at the margin of the amputation) Estimated Blood Loss (mL): 5 Blood products transfused: none Tourniquet time (min): 0 Procedure in detail: Patient was seen in the preoperative area the site of surgery was marked informed consent confirmed there. This was the left 4th toe. Patient was brought back to the operating room and anesthesia was administered. The left lower extremity was prepped and draped in standard sterile fashion a formal t chris-out procedure was performed confirming the patient's side and site of surgery administration of antibiotic. The patient also been on oral antibiotics as an outpatient. Attention was turned to the left toe. Cc of 0.25% Marcaine with epinephrine were used as a digital block. No tourniquet was utilized. C-arm was brought in and the MTP joint and level of the desired amputation of the proximal phalanx were marked out on the skin. A standard fishmouth full-thickness incision was made along the proximal phalanx of the 4th toe. The skin flaps were elevated. Extensor and flexor tendons cut. Disarticulation through the previous hammertoe PIP joint fusion was completed and removal of the screw along with this. Once the end of the toe and the screw removed the small saw was used to make a resection on the remaining proximal phalanx. The wound was then thoroughly irrigated with sterile saline. Once this was completed a separate cut was made with a saw of section of bone with the proximal phalanx base to send for culture. Rongeur was used to further debride the wound edges. The extensor tendons and neurovascular bundle and goals were isolated and clipped and allowed to retract. And the wound was closed with 2-0 PDS 4-0 Monocryl and 4-0 nylon suture. A soft sterile dressing with Xeroform gauze and Marques wrap and an Gilberto wrap was applied. The patient was woken from anesthesia and taken to the recovery room in good condition there no immediate complications from this procedure. Counts were correct. Complications: none Post-operative Condition: stable Disposition: PACU Plan for aftercare: Weightbear as tolerated. Dressing will remain in place until follow up. If soiled it may be changed. Stitches will remain in place until follow up with Dr. Waters and will be maintained for a minimum of 3 weeks. He will have an empiric prescription for doxycycline as antibiotic postoperatively. This may be altered depending on intraoperative cultures.
== END 2023-08-06 16:01 | disposition home or self-care (01) ==
PROVIDERS: PCP Family Medicine; Referring Provider Orthopaedic Surgery Foot and Ankle Surgery; Visit Provider Orthopaedic Surgery Foot and Ankle Surgery
PROC: (CPT 28825; principal; 2023-08-06 12:45)
DX: E11.69 Type 2 diabetes mellitus with other specified complication (principal); M86.9 Osteomyelitis, unspecified; E11.628 Type 2 diabetes mellitus with other skin complications; E11.40 Type 2 diabetes mellitus with diabetic neuropathy, unspecified; E11.610 Type 2 diabetes mellitus with diabetic neuropathic arthropathy; M20.42 Other hammer toe(s) (acquired), left foot; G89.18 Other acute postprocedural pain; F17.210 Nicotine dependence, cigarettes, uncomplicated
CPT/HCPCS: 28825; 20680; 64450; 82962; 87070; 87075; 87205; J0690; J1100; J2250; J2405; J2704; J3010

== ENCOUNTER → 2023-12-22 11:02 | Outpatient (CLI) | payer MEDICARE, SELFPAY ==
[2023-06-04 18:17] VITALS: BMI 32.1
[2023-12-22 12:27] LABS: Hemoglobin A1C% w Est Avg Glu 6.4 % (4.0-6.0)
[2023-12-22 14:43] LABS: Creatinine Urine Random 109.54 mg/dL
[2023-12-22 15:13] LABS: Microalbumin Urine Random < 0.6 mg/dL (0-1.6)
== END ==
PROVIDERS: PCP Family Medicine; Referring Provider Family Medicine; Visit Provider Family Medicine
DX: E11.9 Type 2 diabetes mellitus without complications (principal); Z95.1 Presence of aortocoronary bypass graft; I25.10 Atherosclerotic heart disease of native coronary artery without angina pectoris; I10 Essential (primary) hypertension; E78.5 Hyperlipidemia, unspecified; T14.8XXA Other injury of unspecified body region, initial encounter; L08.9 Local infection of the skin and subcutaneous tissue, unspecified
CPT/HCPCS: 36415; 82043; 82570; 83036; 87070; 87075; 87205

== ENCOUNTER 2024-01-25 10:23 | Inpatient (IN) | payer MEDICARE, SELFPAY ==
[2023-06-04 18:17] VITALS: BMI 32.1
[2024-01-25] VITALS (19 sets, daily range): BP systolic 102–162; BP diastolic 58–102; PULSE 63–105; RESP 15–22; TEMP 36.4–38.1; O2SAT 88–99; BMI 28.3
--- NOTE | 2024-01-25 12:00 | DI.CT.S_ITS ---
PROCEDURE: CT LE RT WO CON INDICATIONS: Diabetic, cellulitis on the foot, rule out osteomyelitis to TECHNIQUE: Noncontrast 1-1.5 mm axial sections acquired from above the tibiotalar joint to the bottom of the calcaneus, with coronal and sagittal reformats. COMPARISON: None. FINDINGS: Image quality: Excellent. Bones: Scrutiny is given to lytic lesions or periosteal reactions. None are definitely seen. Advanced cystic degeneration of the first tarsometatarsal joint can be seen, which has the appearance of a chronic process with remodeling. Advanced generalized degenerative changes are seen elsewhere within the foot. No displaced fracture can be seen. There is chronic appearing dislocation of the 2nd and 3rd metatarsophalangeal joints. Soft tissues: Generalized soft tissue swelling is seen distally, with soft tissue gas. To the limits of this CT study performed without IV contrast, no bonnie focal fluid collection is seen to suggest a drainable abscess. IMPRESSION: Significant soft tissue swelling and soft tissue gas can be seen, without a bonnie drainable abscess. To the limits of CT, no bonnie bony lysis is seen to suggest osteomyelitis. There is significant chronic cystic degeneration seen involving the 1st tarsometatarsal joint. Chronic dislocations of the 2nd and 3rd metatarsophalangeal joints are seen. If there is strong suspicion for developing osteomyelitis, please consider a dedicated MRI without and with contrast for further evaluation (assuming that there is no contraindication to MRI). Dictated by: Shar Edward M.D. on 01/25/2024 at 13:15 Approved by: Shar Edward M.D. on 01/25/2024 at 13:18
[2024-01-25 12:26] LABS: Add Manual Diff / Slide Review NO; Basophils Absolute Auto 100 /uL (0-100); Basophils Percent Auto 0.5 % (0-2); Eosinophils Absolute Auto 0 /uL (0-450); Hematocrit 41.5 % (41-53); Hemoglobin 13.8 g/dL (13.5-17.5); Lymphocytes Absolute Auto 700 /uL (1100-4500); Lymphocytes Percent Auto 3.2 % (25-40); Mean Corpuscular HGB Conc 33.2 % (30-36); Mean Corpuscular Hemoglobin 29.3 PG (26-34); Mean Corpuscular Volume 88.3 fL (80-100); Monocytes Absolute Auto 1300 /uL (0-900); Neutrophils Absolute Auto 19900 /uL (1500-7000); Neutrophils Percent Auto 90.3 % (50-75); Platelet Count 217 X10^3/uL (150-400); Red Blood Cell Count 4.71 X10^6/uL (4.5-5.9); Red Cell Distribution Width 14.4 % (11.6-14.8)
[2024-01-25] MEDS: cefTRIAXone 2,000 MG in SODIUM CHLORIDE 0.9% 100 ML 200 MG IV (12:31)
[2024-01-25] MEDS: ONDANSETRON 4 MG/2 ML INJ IV (12:31)
[2024-01-25 12:32] LABS: Lactate (Lactic Acid) 1.2 mmol/L (0.7-2.1)
[2024-01-25] MEDS: SODIUM CHLORIDE 0.9% 1,000 ML 500 ML IV (12:32)
[2024-01-25 12:33] LABS: Alanine Aminotransferase 45 IU/L (<50); Albumin 3.8 g/dL (3.5-5.0); Albumin Globulin Ratio 1.2 (1.0-2.8); Alkaline Phosphatase 112 U/L (38-126); Aspartate Aminotransferase 33 IU/L (17-59); BUN Creatinine Ratio 30.2 (6-22); Bilirubin Total 1.7 mg/dL (0.2-1.3); Blood Urea Nitrogen 32 mg/dL (9-20); Calcium 8.7 mg/dL (8.4-10.2); Carbon Dioxide 25 mmol/L (22-32); Chloride 97 mmol/L (98-107); Estimated Glomerular Filt Rate > 60 mL/min (>60); Globulin 3.1 g/dL (1.7-4.1); Glucose 159 mg/dL (80-110); HEMOLYSIS < 15 (0-50); Sodium 130 mmol/L (137-145); Total Protein 6.9 g/dL (6.3-8.2)
--- NOTE | 2024-01-25 12:38 | ED_ITS ---
HPI - Wound/Laceration <Tami Lopez PA-C - Last Filed: 01/25/24 16:55> General Chief Complaint: Wound/Laceration Stated Complaint: r foot infection/pain Time Seen by Provider: 01/25/24 11:50 Source: patient Mode of arrival: Ambulatory History of Present Illness HPI narrative: Patient is a very pleasant 83-year-old male that presents to the emergency room department today with right lower extremity discomfort, shooting pains, and pain that has been ongoing for several days but worsening over the last 3 days. He has been seeing a child protective services social worker at [place] who has been caring for wounds that he has on the base of his right foot, they have been slowly cleaning off the callus to help hopefully resolve the wound that he has so that it does not become infected, and they have been then covering it. However recently the wound has started draining serosanguineous fluid, he has been covering it with a Band-Aid. However over the last several days he is noticed that the top of his foot has become red, swollen and tender. Since this past the patient has been in bed, has had decreased appetite, he has had no energy, he has just felt really poorly. He has a history of osteomyelitis, uncontrolled diabetes, and has previously had 3 of the toes on his left foot amputated due to infection associated with osteomyelitis and uncontrolled diabetes. Patient is concerned due to the amount of redness and the swelling that he has noticed and the spreading of the erythema and redness on the dorsal aspect of his right foot. He has pain with ambulation, is brought back to the fast track in a wheelchair. He has family here with him. His medical records have been reviewed, his medications have been reviewed. Patient states that he does not know if he has a fever at home but he has a low-grade fever here in the emergency department of 99.5. Patient has been taking his medications as prescribed. No recent travel, no recent antibiotics, currently no recent upper respiratory symptoms. Poor appetite, no nausea, vomiting diarrhea or constipation. Urinary symptoms are non-existent. Ongoing musculoskeletal pain, the pain is currently having in his foot are these electrical sharp shooting pains that come and go. Patient did not take anything for pain prior to being seen in the emergency department. Patient offered pain medication here, states that he is okay with Tylenol. Given Tylenol here in the emergency department. Related Data Home Medications Medication Instructions Recorded Confirmed aspirin 81 mg tablet 81 mg PO DAILY 06/05/23 01/25/24 felodipine 5 mg tablet,extended 5 mg PO DAILY 01/25/24 01/25/24 release 24 hr finasteride 5 mg tablet 5 mg PO DAILY 01/25/24 01/25/24 omeprazole 20 mg capsule,delayed 20 mg PO DAILY 01/25/24 01/25/24 release rosuvastatin 20 mg tablet 20 mg PO DAILY 01/25/24 01/25/24 terazosin 10 mg capsule 10 mg PO QPM 01/25/24 01/25/24 Previous Rx's Medication Instructions Recorded multivitamin,[id number] 1 tab PO DAILY #90 tabs 04/06/20 (Complete Multivitamin tablet) lancets 33 gauge (OneTouch Delica #100 ea 06/16/20 Lancets) blood-glucose meter (Blood Glucose #1 ea 07/06/20 Monitoring kit) Parking Permit... 1 unit Not Applicable .continuous 02/13/21 #1 unit blood sugar diagnostic (OneTouch See Rx Instructions .Route 07/16/21 Verio test strips) .COMPLEX #100 strips losartan 100 See Rx Instructions .Route 07/21/23 mg-hydrochlorothiazide 25 mg tablet .COMPLEX #90 tabs semaglutide 0.25 mg or 0.5 mg (2 0.5 mg (0.736 mL) SUBCUT QWEEK #3 12/22/23 mg/3 mL) subcutaneous pen injector mL (Ozempic) Allergies Allergy/AdvReac Type Severity Reaction Status Date / Time Penicillins Allergy Intermediate Hives Verified 12/29/23 15:14 metformin AdvReac Intermediate Diarrhea, Verified 12/29/23 15:14 nausea, vomiting azithromycin AdvReac Hives Verified 12/29/23 15:14 Review of Systems <Tami Lopez PA-C - Last Filed: 01/25/24 16:55> Review of Systems Narrative: Negative except as above Musculoskeletal Comments: Right lower extremity pain, right foot swelling, dorsal erythema, Patient History <Tami Lopez PA-C - Last Filed: 01/25/24 16:55> Medical History Type 2 diabetes mellitus with other specified complication PVCs (premature ventricular contractions) First degree AV block LBBB (left bundle branch block) Neuropathy Diabetic Charcot foot Hammertoe of left foot Diabetic foot infection Osteoarthritis of foot, left Fracture of sesamoid bone of foot, closed Foot pain, left Diabetes mellitus Coronary artery disease BPH (benign prostatic hyperplasia) Hypertension Hyperlipidemia Sleep apnea (~1999) Chronic cough (~2005) Allergies Foot pain (~2009) Ankle pain (~2014) Recurrent sinusitis (~1993) Cardiac arrhythmia Surgical History S/P foot surgery, left (06/04/23) Hx of foot surgery (09/19/22) Anesthesia History of appendectomy History of quadruple bypass (2010) Family History Father Cancer Social History household members: none Smoking Status: Former smoker alcohol intake: current eating out: 1-3 times/week Type(s) of exercise: other Smoking Status: Former smoker alcohol intake frequency: a few times a week Substance Use Type: does not use Exam <Tami Lopez PA-C - Last Filed: 01/25/24 16:55> Initial Vital Signs Initial Vital Signs: Vital Signs Temperature 99.5 F 01/25/24 10:27 Pulse Rate 78 01/25/24 10:27 Respiratory Rate 18 01/25/24 10:27 Blood Pressure 147/65 H 01/25/24 10:27 Reviewed patient has a low-grade fever Const General: cooperative, comfortable, well developed, well groomed, No acute distress, No in distress, No anxious, ill appearing and No intoxicated appearing Eyes General: Yes appearance normal, both eyes and all related structures Pupils: PERRL EOM: EOM intact bilaterally Resp Auscultation: clear to auscultation bilaterally, no crackles, no rales, no rhonchi, no wheezes, no rubs and no vesicular sounds Tactile Fremitus: tactile fremitus absent Cardio Rate: regular rate Rhythm: regular rhythm Heart Sounds: S1 normal, S2 normal, no click, no gallops, murmur systolic I/ and at the left sternal border, no rubs and no other Skin Other: Please see the extremity exam Neuro General: patient alert, patient awake, patient oriented x3 and oriented Cranial Nerves: CN's II-XI intact bilaterally Cognition: normal cognition Speech: speech normal Gait: other (Not tested) Extrem Other: right foot swelling, dorsal erythema, moderate size swelling and serosanguineous fluid blister on the volar aspect of his right foot that is currently draining. One and a 0.5 cm. There was no surrounding signs of cellulitis associated with the wound on the volar aspect of his foot. There is breakdown in between all of the toes. The 2nd, 3rd, 4th toe are involved with erythema and cellulitis and the cellulitis then spreads across the dorsal aspect of his foot into the midfoot. Pulses are present though they are diminished. Moderate amount of soft tissue swelling. Pain with dorsal and plantar flexion. The extremities are moderately warm to touch. Compared to the upper extremities. No bruising, ecchymosis is noted on exam. <Aleida Beckham MD - Last Filed: 01/25/24 20:40> Initial Vital Signs Initial Vital Signs: Vital Signs Temperature 99.5 F 01/25/24 10:27 Pulse Rate 78 01/25/24 10:27 Respiratory Rate 18 01/25/24 10:27 Blood Pressure 147/65 H 01/25/24 10:27 Scores <Tami Lopez PA-C - Last Filed: 01/25/24 16:55> GCS Citation: 15 Course <Tami Lpoez PA-C - Last Filed: 01/25/24 16:55> Orders Ordered: ED Orders 01/25/24 12:00 CT LE RT wo con Stat 01/25/24 12:08 CBC Auto Diff [Complete Blood Count AUTO DIFF] Stat CMP [Comprehensive Metabolic Panel] Stat Lactate (Lactic Acid) Stat Procalcitonin Urgent 01/25/24 12:46 Blood Culture Stat Acetaminophen (Acetaminophen 325 Mg Tablet) 650 mg PO Q6H PRN PRN Reason: Fever/Mild Pain (1-3) Hydromorphone HCl (Hydromorphone 0.5 Mg Inj) 0.5 mg IV Q2H PRN PRN Reason: Pain, Severe (7-10) Levofloxacin (Levaquin) 750 mg in 150 mls @ 100 mls/hr IV Q24H MARKUS Vancomycin HCl/Dextrose (Vancomycin) 1,500 mg in 300 mls @ 200 mls/hr IV Q24H MARKUS Naloxone HCl (Naloxone 0.4 Mg/Ml Vial) 0.2 mg IV Q2MIN PRN PRN Reason: Opiate Reversal Ondansetron HCl (Ondansetron 4 Mg/2 Ml Inj) 4 mg IV Q8HR PRN PRN Reason: Nausea And Vomiting Oxycodone HCl (Oxycodone Ir 5 Mg Tablet) 5 mg PO Q3H PRN PRN Reason: Pain, Moderate (4-6) Last Admin: 01/25/24 17:59 Dose: 5 mg Documented By: CIERA Vancomycin HCl (Vancomycin Per Pharmacy) 1 request MISC NOW PRN PRN Reason: foot pain Discontinued Medications Acetaminophen (Acetaminophen 325 Mg Tablet) 650 mg PO NOW ONE Stop: 01/25/24 12:51 Last Admin: 01/25/24 12:52 Dose: 650 mg Documented By: LAMAR Diphenhydramine HCl (Diphenhydramine 50 Mg/Ml Vial) 12.5 mg IV NOW ONE Stop: 01/25/24 11:59 Last Admin: 01/25/24 13:24 Dose: 12.5 mg Documented By: JITENDRA Ceftriaxone Sodium 2,000 mg/ (Sodium Chloride) 100 mls @ 200 mls/hr IV NOW ONE Stop: 01/25/24 11:59 Last Infusion: 01/25/24 14:04 Dose: Infused Documented By: Infusion: 01/25/24 13:26 Dose: 200 mls/hr Documented By: Infusion: 01/25/24 12:40 Dose: 0 mls/hr Documented By: Admin: 01/25/24 12:31 Dose: 200 mls/hr Documented By: LAMAR Sodium Chloride (Normal Saline 0.9%) 1,000 mls @ 500 mls/hr IV BOLUS PRN PRN Reason: Fluid replacement Last Infusion: 01/25/24 15:32 Dose: Infused Documented By: Infusion: 01/25/24 13:26 Dose: 500 mls/hr Documented By: Infusion: 01/25/24 12:40 Dose: 0 mls/hr Documented By: Admin: 01/25/24 12:32 Dose: 500 mls/hr Documented By: LAMAR Vancomycin HCl/Dextrose (Vancomycin) 2,000 mg in 400 mls @ 200 mls/hr IV NOW ONE Stop: 01/25/24 14:44 Last Infusion: 01/25/24 17:09 Dose: Infused Documented By: Admin: 01/25/24 15:14 Dose: 200 mls/hr Documented By: JITENDRA Metronidazole (Flagyl) 500 mg in 100 mls @ 100 mls/hr IV Q6H MARKUS Last Infusion: 01/25/24 15:14 Dose: Infused Documented By: Admin: 01/25/24 14:10 Dose: 100 mls/hr Documented By: MANUEL Ondansetron HCl (Ondansetron 4 Mg/2 Ml Inj) 4 mg IV NOW ONE Stop: 01/25/24 11:59 Last Admin: 01/25/24 12:31 Dose: 4 mg Documented By: LAMAR Vital Signs Vital signs: Vital Signs - 8 hr 01/25/24 12:41 01/25/24 13:19 01/25/24 13:19 Temperature 98.5 F Pulse Rate 90 84 Respiratory Rate 18 Blood Pressure 129/74 134/63 Pulse Oximetry 95 95 Oxygen Delivery Method Room Air Oxygen Flow Rate 01/25/24 13:25 01/25/24 13:30 01/25/24 13:30 Temperature 99.4 F Pulse Rate 80 Respiratory Rate 21 Blood Pressure 134/61 Pulse Oximetry 97 Oxygen Delivery Method Oxygen Flow Rate 01/25/24 14:00 01/25/24 14:00 01/25/24 14:30 Temperature Pulse Rate 75 71 Respiratory Rate 16 16 Blood Pressure 131/60 Pulse Oximetry 93 93 Oxygen Delivery Method Room Air Oxygen Flow Rate 01/25/24 14:30 01/25/24 15:00 01/25/24 15:00 Temperature Pulse Rate 68 Respiratory Rate 15 Blood Pressure 134/62 145/65 H Pulse Oximetry 88 L Oxygen Delivery Method Room Air Oxygen Flow Rate 01/25/24 15:05 01/25/24 15:30 01/25/24 15:30 Temperature Pulse Rate 70 Respiratory Rate 16 21 Blood Pressure 140/67 Pulse Oximetry 98 99 Oxygen Delivery Method Nasal Cannula Nasal Cannula Oxygen Flow Rate 2 2 01/25/24 16:00 01/25/24 16:00 01/25/24 16:30 Temperature Pulse Rate 65 63 Respiratory Rate 20 20 Blood Pressure 151/69 H Pulse Oximetry 99 99 Oxygen Delivery Method Oxygen Flow Rate 01/25/24 16:30 Temperature Pulse Rate Respiratory Rate Blood Pressure 154/68 H Pulse Oximetry Oxygen Delivery Method Oxygen Flow Rate Reviewed <Aleida Bekcham MD - Last Filed: 01/25/24 20:40> Orders Ordered: ED Orders 01/25/24 12:00 CT LE RT wo con Stat 01/25/24 12:08 CBC Auto Diff [Complete Blood Count AUTO DIFF] Stat CMP [Comprehensive Metabolic Panel] Stat Lactate (Lactic Acid) Stat Procalcitonin Urgent 01/25/24 12:46 Blood Culture Stat Acetaminophen (Acetaminophen 325 Mg Tablet) 650 mg PO Q6H PRN PRN Reason: Fever/Mild Pain (1-3) Hydromorphone HCl (Hydromorphone 0.5 Mg Inj) 0.5 mg IV Q2H PRN PRN Reason: Pain, Severe (7-10) Levofloxacin (Levaquin) 750 mg in 150 mls @ 100 mls/hr IV Q24H MARKUS Vancomycin HCl/Dextrose (Vancomycin) 1,500 mg in 300 mls @ 200 mls/hr IV Q24H MARKUS Naloxone HCl (Naloxone 0.4 Mg/Ml Vial) 0.2 mg IV Q2MIN PRN PRN Reason: Opiate Reversal Ondansetron HCl (Ondansetron 4 Mg/2 Ml Inj) 4 mg IV Q8HR PRN PRN Reason: Nausea And Vomiting Oxycodone HCl (Oxycodone Ir 5 Mg Tablet) 5 mg PO Q3H PRN PRN Reason: Pain, Moderate (4-6) Last Admin: 01/25/24 17:59 Dose: 5 mg Documented By: CIERA Vancomycin HCl (Vancomycin Per Pharmacy) 1 request MISC NOW PRN PRN Reason: foot pain Discontinued Medications Acetaminophen (Acetaminophen 325 Mg Tablet) 650 mg PO NOW ONE Stop: 01/25/24 12:51 Last Admin: 01/25/24 12:52 Dose: 650 mg Documented By: LAMAR Diphenhydramine HCl (Diphenhydramine 50 Mg/Ml Vial) 12.5 mg IV NOW ONE Stop: 01/25/24 11:59 Last Admin: 01/25/24 13:24 Dose: 12.5 mg Documented By: JITENDRA Ceftriaxone Sodium 2,000 mg/ (Sodium Chloride) 100 mls @ 200 mls/hr IV NOW ONE Stop: 01/25/24 11:59 Last Infusion: 01/25/24 14:04 Dose: Infused Documented By: Infusion: 01/25/24 13:26 Dose: 200 mls/hr Documented By: Infusion: 01/25/24 12:40 Dose: 0 mls/hr Documented By: Admin: 01/25/24 12:31 Dose: 200 mls/hr Documented By: LAMAR Sodium Chloride (Normal Saline 0.9%) 1,000 mls @ 500 mls/hr IV BOLUS PRN PRN Reason: Fluid replacement Last Infusion: 01/25/24 15:32 Dose: Infused Documented By: Infusion: 01/25/24 13:26 Dose: 500 mls/hr Documented By: Infusion: 01/25/24 12:40 Dose: 0 mls/hr Documented By: Admin: 01/25/24 12:32 Dose: 500 mls/hr Documented By: LAMAR Vancomycin HCl/Dextrose (Vancomycin) 2,000 mg in 400 mls @ 200 mls/hr IV NOW ONE Stop: 01/25/24 14:44 Last Infusion: 01/25/24 17:09 Dose: Infused Documented By: Admin: 01/25/24 15:14 Dose: 200 mls/hr Documented By: JITENDRA Metronidazole (Flagyl) 500 mg in 100 mls @ 100 mls/hr IV Q6H MARKUS Last Infusion: 01/25/24 15:14 Dose: Infused Documented By: Admin: 01/25/24 14:10 Dose: 100 mls/hr Documented By: MANUEL Ondansetron HCl (Ondansetron 4 Mg/2 Ml Inj) 4 mg IV NOW ONE Stop: 01/25/24 11:59 Last Admin: 01/25/24 12:31 Dose: 4 mg Documented By: LAMAR Vital Signs Vital signs: Vital Signs - 8 hr 01/25/24 12:41 01/25/24 13:19 01/25/24 13:19 Temperature 98.5 F Pulse Rate 90 84 Respiratory Rate 18 Blood Pressure 129/74 134/63 Pulse Oximetry 95 95 Oxygen Delivery Method Room Air Oxygen Flow Rate 01/25/24 13:25 01/25/24 13:30 01/25/24 13:30 Temperature 99.4 F Pulse Rate 80 Respiratory Rate 21 Blood Pressure 134/61 Pulse Oximetry 97 Oxygen Delivery Method Oxygen Flow Rate 01/25/24 14:00 01/25/24 14:00 01/25/24 14:30 Temperature Pulse Rate 75 71 Respiratory Rate 16 16 Blood Pressure 131/60 Pulse Oximetry 93 93 Oxygen Delivery Method Room Air Oxygen Flow Rate 01/25/24 14:30 01/25/24 15:00 01/25/24 15:00 Temperature Pulse Rate 68 Respiratory Rate 15 Blood Pressure 134/62 145/65 H Pulse Oximetry 88 L Oxygen Delivery Method Room Air Oxygen Flow Rate 01/25/24 15:05 01/25/24 15:30 01/25/24 15:30 Temperature Pulse Rate 70 Respiratory Rate 16 21 Blood Pressure 140/67 Pulse Oximetry 98 99 Oxygen Delivery Method Nasal Cannula Nasal Cannula Oxygen Flow Rate 2 2 01/25/24 16:00 01/25/24 16:00 01/25/24 16:30 Temperature Pulse Rate 65 63 Respiratory Rate 20 20 Blood Pressure 151/69 H Pulse Oximetry 99 99 Oxygen Delivery Method Oxygen Flow Rate 01/25/24 16:30 Temperature Pulse Rate Respiratory Rate Blood Pressure 154/68 H Pulse Oximetry Oxygen Delivery Method Oxygen Flow Rate MDM - Wound/Laceration <Tami Lopez PA-C - Last Filed: 01/25/24 16:55> Lab Data 01/25/24 12:08 01/25/24 12:08 Labs: Lab Results 01/25/24 Range/Units 12:08 WBC 22.0 H (4.5-11.0) X10^3/uL RBC 4.71 (4.5-5.9) X10^6/uL Hgb 13.8 (13.5-17.5) g/dL Hct 41.5 (41-53) % MCV 88.3 (80-100) fL MCH 29.3 (26-34) PG MCHC 33.2 (30-36) % RDW 14.4 (11.6-14.8) % Plt Count 217 (150-400) X10^3/uL Neut % (Auto) 90.3 H (50-75) % Lymph % (Auto) 3.2 L (25-40) % Ector % (Auto) 6.0 (3-14) % Eos % (Auto) 0.0 L (2-4) % Baso % (Auto) 0.5 (0-2) % Neut # (Auto) 75331 H (1211-2986) /uL Lymph # (Auto) 700 L (5188-6725) /uL Ector # (Auto) 1300 H (0-900) /uL Eos # (Auto) 0 (0-450) /uL Baso # (Auto) 100 (0-100) /uL Sodium 130 L (137-145) mmol/L Potassium 4.0 (3.4-5.1) mmol/L Chloride 97 L (98-107) mmol/L Carbon Dioxide 25 (22-32) mmol/L BUN 32 H (9-20) mg/dL Creatinine 1.06 (0.66-1.25) mg/dL Estimated GFR > 60 (>60) mL/min BUN/Creatinine Ratio 30.2 H (6-22) Glucose 159 H (80-110) mg/dL Lactate 1.2 (0.7-2.1) mmol/L Calcium 8.7 (8.4-10.2) mg/dL Total Bilirubin 1.7 H (0.2-1.3) mg/dL AST 33 (17-59) IU/L ALT 45 (<50) IU/L Alkaline Phosphatase 112 (38-126) U/L Total Protein 6.9 (6.3-8.2) g/dL Albumin 3.8 (3.5-5.0) g/dL Globulin 3.1 (1.7-4.1) g/dL Albumin/Globulin Ratio 1.2 (1.0-2.8) Procalcitonin 0.274 (<0.5) ng/mL [facility] Narrative Medical decision making narrative: Very pleasant 83-year-old male history of Narrative: Left bundle-branch, type 2 diabetes, hypertension, hyperlipidemia, BPH, CAD and osteoarthritis. With a previous history of multiple toes on the left foot being amputated due to diabetic neuropathy, osteomyelitis and infection. Who presents to the emergency room department with lethargy, not feeling well, low energy, and being in bed since this past with now increasing soft tissue swelling, erythema, and increasing discomfort and pain to the right lower extremity and foot. Patient has a history of diabetic foot ulcers, osteomyelitis, currently seeing a child protective services social worker [place] he has been caring for a wound that he has in the volar aspect of his right foot. Patient now states that he has noticed erythema, redness, swelling, and increased pain to the right dorsal aspect of his foot. The now involves the 2nd through 4th toe of his right foot. Patient having sharp shooting pains in the right lower extremity. Low-grade fevers at home. Feeling run down, concerned about infection. Worried about his toes, worried about the wound on the volar aspect of his foot which he really can not evaluate. Patient brought into the emergency department by family. Patient brought back to the fast track. Evaluated by myself. Concerns for osteomyelitis. IV placed CBC white count is 22, left shift, patient is not anemic CMP patient has hyponatremia with a sodium of 130. The rest of the electrolytes are within normal limits BUN is mildly elevated at 32, glucose is [address] scan without contrast of the right lower extremity Elevated white count, Rocephin and started due to the fact the patient has a penicillin allergy Vancomycin is ordered Patient will need to be admitted due to elevated white count, history of osteomyelitis, uncontrolled diabetes, concerned for infection associated with uncontrolled diabetes and most likely staph infection. I spoke with the attending Dr. Domonique Beckham After the patient's CT scan he will be transferred over to room 4 and care will be transferred her. <Aleida Bcekham MD - Last Filed: 01/25/24 20:40> Lab Data Labs: Lab Results 01/25/24 Range/Units 12:08 WBC 22.0 H (4.5-11.0) X10^3/uL RBC 4.71 (4.5-5.9) X10^6/uL Hgb 13.8 (13.5-17.5) g/dL Hct 41.5 (41-53) % MCV 88.3 (80-100) fL MCH 29.3 (26-34) PG MCHC 33.2 (30-36) % RDW 14.4 (11.6-14.8) % Plt Count 217 (150-400) X10^3/uL Neut % (Auto) 90.3 H (50-75) % Lymph % (Auto) 3.2 L (25-40) % Ector % (Auto) 6.0 (3-14) % Eos % (Auto) 0.0 L (2-4) % Baso % (Auto) 0.5 (0-2) % Neut # (Auto) 62092 H (3709-0720) /uL Lymph # (Auto) 700 L (0752-6104) /uL Ector # (Auto) 1300 H (0-900) /uL Eos # (Auto) 0 (0-450) /uL Baso # (Auto) 100 (0-100) /uL Sodium 130 L (137-145) mmol/L Potassium 4.0 (3.4-5.1) mmol/L Chloride 97 L (98-107) mmol/L Carbon Dioxide 25 (22-32) mmol/L BUN 32 H (9-20) mg/dL Creatinine 1.06 (0.66-1.25) mg/dL Estimated GFR > 60 (>60) mL/min BUN/Creatinine Ratio 30.2 H (6-22) Glucose 159 H (80-110) mg/dL Lactate 1.2 (0.7-2.1) mmol/L Calcium 8.7 (8.4-10.2) mg/dL Total Bilirubin 1.7 H (0.2-1.3) mg/dL AST 33 (17-59) IU/L ALT 45 (<50) IU/L Alkaline Phosphatase 112 (38-126) U/L Total Protein 6.9 (6.3-8.2) g/dL Albumin 3.8 (3.5-5.0) g/dL Globulin 3.1 (1.7-4.1) g/dL Albumin/Globulin Ratio 1.2 (1.0-2.8) Procalcitonin 0.274 (<0.5) ng/mL Imaging Data CT right lower extremity: Radiologist's Impression: PROCEDURE: CT LE RT WO CON INDICATIONS: Diabetic, cellulitis on the foot, rule out osteomyelitis to TECHNIQUE: Noncontrast 1-1.5 mm axial sections acquired from above the tibiotalar joint to the bottom of the calcaneus, with coronal and sagittal reformats. COMPARISON: None. FINDINGS: Image quality: Excellent. Bones: Scrutiny is given to lytic lesions or periosteal reactions. None are definitely seen. Advanced cystic degeneration of the first tarsometatarsal joint can be seen, which has the appearance of a chronic process with remodeling. Advanced generalized degenerative changes are seen elsewhere within the foot. No displaced fracture can be seen. There is chronic appearing dislocation of the 2nd and 3rd metatarsophalangeal joints. Soft tissues: Generalized soft tissue swelling is seen distally, with soft tissue gas. To the limits of this CT study performed without IV contrast, no bonnie focal fluid collection is seen to suggest a drainable abscess. IMPRESSION: Significant soft tissue swelling and soft tissue gas can be seen, without a bonnie drainable abscess. To the limits of CT, no bonnie bony lysis is seen to suggest osteomyelitis. There is significant chronic cystic degeneration seen involving the 1st tarsometatarsal joint. Chronic dislocations of the 2nd and 3rd metatarsophalangeal joints are seen. If there is strong suspicion for developing osteomyelitis, please consider a dedicated MRI without and with contrast for further evaluation (assuming that there is no contraindication to MRI). Dictated by: Shar Edward M.D. on 01/25/2024 at 13:15 MDM Narrative Medical decision making narrative: Very pleasant 83-year-old male history of Narrative: Left bundle-branch, type 2 diabetes, hypertension, hyperlipidemia, BPH, CAD and osteoarthritis. With a previous history of multiple toes on the left foot being amputated due to diabetic neuropathy, osteomyelitis and infection. Who presents to the emergency room department with lethargy, not feeling well, low energy, and being in bed since this past with now increasing soft tissue swelling, erythema, and increasing discomfort and pain to the right lower extremity and foot. Patient has a history of diabetic foot ulcers, osteomyelitis, currently seeing a child protective services social worker [place] he has been caring for a wound that he has in the volar aspect of his right foot. Patient now states that he has noticed erythema, redness, swelling, and increased pain to the right dorsal aspect of his foot. The now involves the 2nd through 4th toe of his right foot. Patient having sharp shooting pains in the right lower extremity. Low-grade fevers at home. Feeling run down, concerned about infection. Worried about his toes, worried about the wound on the volar aspect of his foot which he really can not evaluate. Patient brought into the emergency department by family. Patient brought back to the fast track. Evaluated by myself. Concerns for osteomyelitis. IV placed Labs; CBC white count is 22, left shift, patient is not anemic CMP patient has hyponatremia with a sodium of 130. The rest of the electrolytes are within normal limits BUN is mildly elevated at 32, glucose is 159 Lactate normal Procalcitonin not elevated Lactic acid is not elevated Imaging: CT scan without contrast of the right lower extremity Significant soft tissue swelling and soft tissue gas can be seen, without a bonnie drainable abscess.To the limits of CT, no bonnie bony lysis is seen to suggest osteomyelitis.There is significant chronic cystic degeneration seen involving the 1st tarsometatarsal joint. Chronic dislocations of the 2nd and 3rd metatarsophalangeal joints are seen. With concern for diabetic foot infection with osteomyelitis, allergy to penicillin ceftriaxone, vancomycin and metronidazole are started spoke with the attending Dr. Aleida Beckham Workup is assumed, patient is examined, labs and imaging studies reviewed Consult: Dr Waldron. We will evaluate the patient for any operative needs. Did request an MRI which will be ordered for the morning Dr. Gotti, admitting hospitalist. We will admit the patient. He will place the order for the MRI. Discussion: 83-year-old gentleman with diabetic foot ulcer with increasing malaise for the past 3-4 days, actually sensing pain in his foot erythema and swelling over the dorsum of the foot. CT scan does suggest infection with some gas but no obvious abscess. MRI we will be ordered for the morning to evaluate further for osteomyelitis. He has been started on antibiotics there has no signs of acute sepsis. Declines additional pain medications at this time. He is safe for transfer to floor for treatment of his diabetic foot ulcer Discharge Plan Departure Patient Disposition: Admitted As Inpatient Clinical Impression: Diabetic foot ulcer Qualifiers: Diabetic foot ulcer location: unspecified part of foot Diabetes mellitus type: type 2 Laterality: right Non-pressure ulcer stage: with other severity Qualified Code(s): E11.621 - Type 2 diabetes mellitus with foot ulcer Admit Date/Time: 01/25/24 16:50 Admit Provider: Misha Gotti ED Sign-out <Aleida Beckham MD - Last Filed: 01/25/24 20:40> Cosign ED Attending Gal Attestation: I was immediately available in the department for consultation throughout this patient's visit. Aleida Beckham MD
[2024-01-25 12:49] LABS: Procalcitonin 0.274 ng/mL (<0.5)
[2024-01-25] MEDS: ACETAMINOPHEN 325 MG TABLET 650 MG PO ×2 (12:52→21:03)
--- NOTE | 2024-01-25 13:13 | PC.NURSE ---
1245: patient's foot started weeping. wound wrapped with guaze
[2024-01-25] MEDS: diphenhydrAMINE 50 MG/ML VIAL 12.5 MG IV (13:24)
[2024-01-25] MEDS: metroNIDAZOLE 500 MG/100 ML PIGGYBACK 100 MG IV (14:10)
--- NOTE | 2024-01-25 15:05 | PC.NURSE ---
Pt has hx of sleep apnea and wears CPAP 2 night, visitor/friend is bringing belongings and CPAP machine to hospital. NC 2LPM applied for decreased oxygen saturation.
[2024-01-25] MEDS: VANCOMYCIN 2,000 MG/400 ML PIGGYBACK 200 MG IV (15:14)
--- NOTE | 2024-01-25 16:49 | PM.HP.1 ---
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 He complains of worsening pain over the last few days at home with worsening redness, swelling and pain. The redness has progressed has moved more proximally today over the top of his R foot. Denies fever, chills, nausea, vomiting. Pains are sharp and radiate up his leg. CT scan in the ER shows soft tissue gas, without a bonnie abscess, along with chronic findings. ER discussed with orthopedics, recommended MRI and will consult in the morning. [facility] Medical History Type 2 diabetes mellitus with other specified complication PVCs (premature ventricular contractions) First degree AV block LBBB (left bundle branch block) Neuropathy Diabetic Charcot foot Hammertoe of left foot Diabetic foot infection Osteoarthritis of foot, left Fracture of sesamoid bone of foot, closed Foot pain, left Diabetes mellitus Coronary artery disease BPH (benign prostatic hyperplasia) Hypertension Hyperlipidemia Sleep apnea (~1999) Chronic cough (~2005) Allergies Foot pain (~2009) Ankle pain (~2014) Recurrent sinusitis (~1993) Cardiac arrhythmia Surgical History S/P foot surgery, left (06/04/23) Hx of foot surgery (09/19/22) Anesthesia History of appendectomy History of quadruple bypass (2010) Family History Father Cancer Social History household members: none Smoking Status: Former smoker alcohol intake: current eating out: 1-3 times/week Type(s) of exercise: other Meds Home Medications and Allergies Home Medications Medication Instructions Recorded Confirmed Type multivitamin,[id number] 1 tab PO DAILY #90 tabs 04/06/20 01/25/24 Rx (Complete Multivitamin tablet) lancets 33 gauge (OneTouch Delica #100 ea 06/16/20 01/25/24 Rx Lancets) blood-glucose meter (Blood Glucose #1 ea 07/06/20 01/25/24 Rx Monitoring kit) Parking Permit... 1 unit Not Applicable .continuous 02/13/21 01/25/24 Rx #1 unit blood sugar diagnostic (OneTouch See Rx Instructions .Route 07/16/21 01/25/24 Rx Verio test strips) .COMPLEX #100 strips aspirin 81 mg tablet 81 mg PO DAILY 06/05/23 01/25/24 History losartan 100 See Rx Instructions .Route 07/21/23 01/25/24 Rx mg-hydrochlorothiazide 25 mg tablet .COMPLEX #90 tabs semaglutide 0.25 mg or 0.5 mg (2 0.5 mg (0.736 mL) SUBCUT QWEEK #3 12/22/23 01/25/24 Rx mg/3 mL) subcutaneous pen injector mL ([employer]) felodipine 5 mg tablet,extended 5 mg PO DAILY 01/25/24 01/25/24 History release 24 hr finasteride 5 mg tablet 5 mg PO DAILY 01/25/24 01/25/24 History omeprazole 20 mg capsule,delayed 20 mg PO DAILY 01/25/24 01/25/24 History release rosuvastatin 20 mg tablet 20 mg PO DAILY 01/25/24 01/25/24 History terazosin 10 mg capsule 10 mg PO QPM 01/25/24 01/25/24 History Allergies Allergy/AdvReac Type Severity Reaction Status Date / Time Penicillins Allergy Intermediate Hives Verified 12/29/23 15:14 metformin AdvReac Intermediate Diarrhea, Verified 12/29/23 15:14 nausea, vomiting azithromycin AdvReac Hives Verified 12/29/23 15:14 Review of Systems Review of Systems Narrative: All other systems reviewed with the patient and are negative unless otherwise stated. Exam Vital Signs (past 8 hours): - 01/25/24 10:27 01/25/24 12:41 01/25/24 13:19 Temperature 99.5 F 98.5 F Pulse Rate 78 90 Respiratory Rate 18 18 Blood Pressure 147/65 H 129/74 134/63 Pulse Oximetry 95 Oxygen Delivery Method Room Air Oxygen Flow Rate 01/25/24 13:19 01/25/24 13:25 01/25/24 13:30 Temperature 99.4 F Pulse Rate 84 Respiratory Rate Blood Pressure 134/61 Pulse Oximetry 95 Oxygen Delivery Method Oxygen Flow Rate 01/25/24 13:30 01/25/24 14:00 01/25/24 14:00 Temperature Pulse Rate 80 75 Respiratory Rate 21 16 Blood Pressure 131/60 Pulse Oximetry 97 93 Oxygen Delivery Method Room Air Oxygen Flow Rate 01/25/24 14:30 01/25/24 14:30 01/25/24 15:00 Temperature Pulse Rate 71 68 Respiratory Rate 16 15 Blood Pressure 134/62 Pulse Oximetry 93 88 L Oxygen Delivery Method Room Air Oxygen Flow Rate 01/25/24 15:00 01/25/24 15:05 01/25/24 15:30 Temperature Pulse Rate 70 Respiratory Rate 16 21 Blood Pressure 145/65 H Pulse Oximetry 98 99 Oxygen Delivery Method Nasal Cannula Nasal Cannula Oxygen Flow Rate 2 2 01/25/24 15:30 Temperature Pulse Rate Respiratory Rate Blood Pressure 140/67 Pulse Oximetry Oxygen Delivery Method Oxygen Flow Rate Oxygen Delivery Method Nasal Cannula Oxygen Flow Rate 2 Narrative Exam Narrative: GEN: no acute distress HEENT: moist mucous membranes, PERRL NECK: trachea midline, no JVD CV: regular rate and rhythm, no murmurs PULM: clear bilaterally ABD: soft, nontender, nondistended, no organomegaly EXT: warm and well perfused with no edema, R foot with plantar surface callous, with central area mild serous drainage, dorsal erythema and warmth approx 2x3 cm just proximal to his 2nd and 3rd toes. NEURO: awake, alert, oriented, no focal deficits Objective Labs 01/25/24 12:08 01/25/24 12:08 Labs: Laboratory Results - last 24 hr 01/25/24 12:08 WBC 22.0 H RBC 4.71 Hgb 13.8 Hct 41.5 MCV 88.3 MCH 29.3 MCHC 33.2 RDW 14.4 Plt Count 217 Neut % (Auto) 90.3 H Lymph % (Auto) 3.2 L [place] % (Auto) 6.0 Eos % (Auto) 0.0 L Baso % (Auto) 0.5 Neut # (Auto) 72343 H Lymph # (Auto) 700 L [place] # (Auto) 1300 H Eos # (Auto) 0 Baso # (Auto) 100 Sodium 130 L Potassium 4.0 Chloride 97 L Carbon Dioxide 25 BUN 32 H Creatinine 1.06 Estimated GFR > 60 BUN/Creatinine Ratio 30.2 H Glucose 159 H Lactate 1.2 Calcium 8.7 Total Bilirubin 1.7 H AST 33 ALT 45 Alkaline Phosphatase 112 Total Protein 6.9 Albumin 3.8 Globulin 3.1 Albumin/Globulin Ratio 1.2 Procalcitonin 0.274 Assessment & Plan Assessment & Plan narrative: #diabetic foot ulcer, present on admission, rule out sepsis - pain control - orthopedic consult tomorrow AM - MRI ordered w/ and w/o contrast - ESR CRP ordered - continue levofloxacin with history of stenotrophomonas on prior cultures. Continue vancomycin with dosing per pharmacy. - SOFA score is 1, does have elevated WBC count, no other signs of end organ damage other than elevated bilirubin #history of 2nd degree type 1 block, bradycardia - no beta myke given prior history, block improved last admission - continue telemetry - EKG ordered # DM2 -sliding scale insulin -hold home semaglutide # BPH -continue finasteride and terazosin # HTN -continue amlodipine replacing home felodipine. Hold losartan HCTZ in case of possible OR tomorrow and possible sepsis. Code: Full, surrogate is patient's friend Thompson DVT: SCDs, pending orthopedic consultation in case of operative interventions. I have utilized all available immediate resources to obtain, update, or review the patient's current medications. Dispo: patient admitted under inpatient status. Unclear if will be able to discharge home or possible SNF, will have PT/OT evaluations after above evaluation Additional history obtained via discussions with the ER provider. These discussions contributed to the creation of the above assessment and plan. I have reviewed patient's presenting documentation, labs, and imaging personally. Time-Based Coding :: [TOTAL MINUTES] spent with patient and on the chart (including review of chart, obtaining history, exam, reviewing outside data, placing orders, documenting exam and treatment plan, and counseling patient) on [DATE].
--- NOTE | 2024-01-25 17:35 | DI.MRI.S_ITS ---
PROCEDURE: MR FOOT RT WO/W CON INDICATIONS: further evaluation diabetic foot ulcer, possible osteo TECHNIQUE: Multiphasic, multisequence MRI of the forefoot was performed, before and after intravenous contrast administration. COMPARISON: [facility], CT, CT LE RT WO CON, 01/25/2024, 13:06. [facility] [place], CR, XR TOE(S) LEFT, 07/08/2023, 10:23. FINDINGS: Image quality: Excellent. Bones and joints: Osseous edema and enhancement are seen in the distal 2nd metatarsal shaft and metatarsal head. There is mildly decreased signal in the 2nd proximal phalangeal base. Mild osseous edema is seen adjacent to the 3rd metatarsophalangeal joint without significant T1 signal abnormality. Severe arthritic changes are again seen at the 1st tarsometatarsal joint with osseous edema and prominent subchondral cystic changes as well as chronic osseous remodeling. Degenerative changes also seen at the 2nd and 3rd tarsometatarsal joints. Dorsal dislocations of the 2nd and 3rd metatarsophalangeal joints redemonstrated. Soft tissues: Skin ulceration is again seen at the plantar aspect of the forefoot adjacent to the 2nd metatarsophalangeal joint. A thin fluid-filled tract is seen extending from the skin surface to the 2nd metatarsophalangeal joint. Focal susceptibility artifact again seen compatible with foci of gas as previously seen. Moderate 2nd metatarsophalangeal joint effusion. No drainable abscess is seen. There is surrounding subcutaneous edema that also extends into the dorsum of the foot. [id number] signal and fatty infiltration within the visualized foot musculature likely related to denervation changes versus myositis. No enhancing soft tissue mass. IMPRESSION: 1. Skin ulceration at the plantar aspect of the forefoot with a thin fluid-filled tract extending to the second metatarsophalangeal joint. No drainable abscess is seen. 2. Osseous edema and enhancement as well as abnormal T1-weighted signal are seen in the 2nd metatarsal head and distal shaft as well as the 2nd proximal phalangeal base, highly suspicious for osteomyelitis. Moderate 2nd metatarsophalangeal joint effusion with a small focus of gas. 3. Mild osseous edema adjacent to the 3rd metatarsophalangeal joint without abnormal T1-weighted signal is most likely reactive. 4. Dorsal dislocations of the 2nd 3rd metatarsophalangeal joints again seen. 5. Severe degenerative changes at the 1st tarsometatarsal joint with remodeling of the articular surfaces. Less prominent degenerative changes at the 2nd and 3rd tarsometatarsal joints. 6. Fatty infiltration and edema within foot musculature likely related to denervation changes versus myositis. Approved by: Gulshan Ambrocio M.D. on 01/26/2024 at 15:28
[2024-01-25] MEDS: OXYCODONE IR 5 MG TABLET PO ×2 (17:59→21:02)
[2024-01-25] MEDS: levoFLOXacin 750 MG/150 ML PIGGYBACK 100 MG IV (21:02)
--- NOTE | 2024-01-25 22:08 | EKG_ITS ---
[place] [id number] [place] [id number] Test Date: 2024-01-26 Pat Name: Roni Sage Department: [facility] Room: 208 Gender: Male Rail Car Driver: : 1940 Requested By: Order Number: [id number] Reading MD: Misha Gotti Measurements Intervals [place] Rate: 72 P: 18 MT: 352 QRS: 91 QRSD: 128 T: -17 QT: 414 QTc: 453 Interpretive Statements Sinus rhythm with 1st degree AV block Rightward axis Nonspecific intraventricular block Cannot rule out Anteroseptal infarct , age undetermined Electronically Signed On 01-27-2024 14:43:58 PDT by Misha Gotti
[2024-01-26] VITALS (11 sets, daily range): BP systolic 111–142; BP diastolic 51–64; PULSE 18–88; RESP 16–18; TEMP 36.5–36.8; O2SAT 94–98
[2024-01-26 06:15] LABS: Add Manual Diff / Slide Review NO; Basophils Absolute Auto 0 /uL (0-100); Basophils Percent Auto 0.2 % (0-2); Eosinophils Absolute Auto 0 /uL (0-450); Eosinophils Percent Auto 0.1 % (2-4); Hematocrit 34.1 % (41-53); Hemoglobin 11.5 g/dL (13.5-17.5); Lymphocytes Absolute Auto 1100 /uL (1100-4500); Lymphocytes Percent Auto 6.1 % (25-40); Mean Corpuscular HGB Conc 33.6 % (30-36); Mean Corpuscular Hemoglobin 29.6 PG (26-34); Mean Corpuscular Volume 87.9 fL (80-100); Monocytes Absolute Auto 1600 /uL (0-900); Monocytes Percent Auto 8.9 % (3-14); Neutrophils Absolute Auto 15000 /uL (1500-7000); Neutrophils Percent Auto 84.7 % (50-75); Platelet Count 257 X10^3/uL (150-400); Red Blood Cell Count 3.88 X10^6/uL (4.5-5.9); Red Cell Distribution Width 14.7 % (11.6-14.8); White Blood Cell Count 17.7 X10^3/uL (4.5-11.0)
[2024-01-26 06:20] LABS: Hemoglobin A1C% w Est Avg Glu 6.6 % (4.0-6.0)
[2024-01-26 06:26] LABS: Alanine Aminotransferase 35 IU/L (<50); Alkaline Phosphatase 87 U/L (38-126); Aspartate Aminotransferase 23 IU/L (17-59); BUN Creatinine Ratio 33.1 (6-22); Bilirubin Total 0.7 mg/dL (0.2-1.3); Blood Urea Nitrogen 39 mg/dL (9-20); Calcium 8.2 mg/dL (8.4-10.2); Carbon Dioxide 26 mmol/L (22-32); Chloride 100 mmol/L (98-107); Estimated Glomerular Filt Rate > 60 mL/min (>60); Globulin 2.9 g/dL (1.7-4.1); Glucose 123 mg/dL (80-110); HEMOLYSIS < 15 (0-50); Potassium 4.1 mmol/L (3.4-5.1); Sodium 131 mmol/L (137-145); Total Protein 5.9 g/dL (6.3-8.2)
[2024-01-26 06:46] LABS: Erythrocyte Sedimentation Rate 32 MM/HR (0-15)
[2024-01-26 06:52] LABS: C-Reactive Protein Quant 19.5 mg/dL (<1.0)
--- NOTE | 2024-01-26 07:34 | DI.ECHO.S_ITS ---
[facility] : : [address] : [place] : : [id number] : : Phone: [phone] Echocardiogram Report + + :Name: QUINCY BOYD Study Date: 01/26/2024 Height: 71 in : :[facility] ReadingLocation: Weight: 203 lb : : Gender: Male BSA: 2.1 m2 : :: 1940 Age: 83 yrs BP: 118/51 mmHg: :Reason For Study: GRAM POSITIVE BACTEREMIA : :Ordering Physician: IAN, : :LUDWIG ROJO Performed By: Alexandrea Walters : :Referring: LUDWIG SOSA : + + Interpretation Summary The left ventricle is normal in size and wall thickness. Left ventricular ejection fraction is estimated to be 55 +/- 5%. The right ventricle is at the upper limits of normal in size. Visually RV function appears to be preserved. There is mild tricuspid regurgitation. The right ventricular systolic pressure is estimated to be at least 34 mmHg based on an estimated right atrial pressure of 3 mm Hg. There is mild to moderate pulmonic regurgitation. No obvious valvular vegetation seen however if clinical suspicion for endocarditis is high, consider ANTHONY. Procedure: A two-dimensional transthoracic echocardiogram with color flow and Doppler was performed. The study quality was technically adequate. Comparison is made with the echocardiogram of 06/05/2023. The heart rate ranged between 72-77 bpm during the study. The patient was in normal sinus rhythm during the exam. The patient had a bundle branch block rhythm during the exam. The patient was in first degree heart block during the exam. Left Ventricle: The left ventricle is normal in size and wall thickness. There is no thrombus. Left ventricular ejection fraction is estimated to be 55 +/- 5%. Septal motion is consistent with conduction abnormality. There is septal wall hypokinesis. Compared to the prior exam, the left ventricular wall motion has not changed. Diastolic parameters suggest a relaxation abnormality of the left ventricle, consistent with probable normal filling pressures. Right Ventricle: The right ventricle is at the upper limits of normal in size. Visually RV function appears to be preserved. Atria: The left atrium is mildly dilated. The left atrium has mildly increased in size since the prior echo exam. Right atrial size is normal. There is no Doppler evidence for an interatrial shunt. Mitral Valve: There is mild to moderate mitral annular calcification. The mitral valve chordae are thickened and/or calcified. No significant mitral valve stenosis. There is mild mitral regurgitation. Aortic Valve: The aortic valve is trileaflet. The aortic valve opens well. The aortic valve is mildly calcified. There is discrete nodular thickening of the right coronary cusp. There is no aortic valve stenosis. No aortic regurgitation is present. Tricuspid Valve: There is tricuspid annular calcification. There is mild tricuspid regurgitation. The right ventricular systolic pressure is estimated to be at least 34 mmHg based on an estimated right atrial pressure of 3 mm Hg. Pulmonic Valve: The pulmonic valve is not well seen, but is grossly normal. There is mild to moderate pulmonic regurgitation. Great Vessels: The aortic root is normal size. The dimensions of the ascending aorta are normal. The IVC is of normal diameter and collapses greater than 50% with a sniff. This suggests a low right atrial pressure of 3 mm Hg. Pericardium/ Pleura There is no pericardial effusion. There is no pleural effusion. MMode/2D Measurements & Calculations LVIDd: 5.0 cm LVOT diam: 2.1 cm LVIDs: 3.6 cm Ao root diam: 3.4 cm FS: 28.5 % asc Aorta Diam: 3.6 cm EPSS: 0.44 cm IVSd: 1.00 cm LVPWd: 0.95 cm LV galarza. diameter/BSA (cm/m^2): 2.4 LV sys. diameter/BSA (cm/m^2): 1.7 LA A2 area: 24.2 cm2 RA long axis: 6.6 cm LA A4 area: 25.1 cm2 RA area: 19.3 cm2 LA length (vol): 5.8 cm RA vol: 47.6 ml LA vol: 89.2 ml RA : 22.4 ml/m2 LA vol index: 42.0 ml/m2 IVC diam: 1.9 cm RVD1 (basal): 4.0 cm RVD2 (mid): 3.2 cm TAPSE: 1.5 cm Doppler Measurements & Calculations Ao V2 max: 175.0 cm/sec LVOT Max Tomas: 131.3 cm/sec Ao V2 mean: 117.2 cm/sec LV V1 max P.9 mmHg Ao max P.3 mmHg LV V1 VTI: 28.8 cm Ao mean P.4 mmHg EDISON(I,D): 3.1 cm2 Ao V2 VTI: 33.8 cm EDISON(V,D): 2.7 cm2 sev ratio: 0.85 EDISON indexed to BSA (cm^2/m^2): 1.4 MV E max tomas: 128.4 cm/sec TR max tomas: 279.4 cm/sec MV A max tomas: 142.8 cm/sec TR max P.2 mmHg MV E/A: 0.90 PA V2 max: 132.2 cm/sec Med Peak E' Tomas: 10.1 cm/sec PA V2 mean: 86.0 cm/sec E/E' med: 12.8 PA mean P.4 mmHg Lat Peak E' Tomas: 7.0 cm/sec PA pr(Accel): 55.9 mmHg E/E' lat: 18.3 E/e' average: 15.6 MVA(VTI): 2.3 cm2 MV V2 mean: 103.2 cm/sec SV(LVOT): 103.9 ml MV mean P.1 mmHg MV V2 VTI: 44.9 cm Reading Physician:12:07 PM
[2024-01-26 07:44] LABS: Acinetobacter calcoa-baumannii Not Detected (Not Detect); Bacteroides fragilis Not Detected (Not Detect); Candida albicans Not Detected (Not Detect); Candida auris Not Detected (Not Detect); Candida glabrata Not Detected (Not Detect); Candida krusei Not Detected (Not Detect); Candida parapsilosis Not Detected (Not Detect); Candida tropicalis Not Detected (Not Detect); Cryptococcus neoformans/gatti Not Detected (Not Detect); Enterobacter cloacae complex Not Detected (Not Detect); Enterobacterales Not Detected (Not Detect); Enterococcus faecalis Not Detected (Not Detect); Enterococcus faecium Not Detected (Not Detect); Haemophilus influenzae Not Detected (Not Detect); Klebsiella aerogenes Not Detected (Not Detect); Listeria monocytogenes Not Detected (Not Detect); Neisseria meningitidis Not Detected (Not Detect); Proteus species Not Detected (Not Detect); Pseudomonas aeruginosa Not Detected (Not Detect); Salmonella species Not Detected (Not Detect); Serratia marcescens Not Detected (Not Detect); Staphylococcus epidermidis Not Detected (Not Detect); Staphylococcus lugdunensis Not Detected (Not Detect); Staphylococcus species Detected (Not Detect); Stenotrophomonas maltophilia Not Detected (Not Detect); Streptococcus agalactiae (Gr B Not Detected (Not Detect); Streptococcus pneumonia Not Detected (Not Detect); Streptococcus pyogenes (Gr A) Not Detected (Not Detect); Streptococcus species Not Detected (Not Detect); mecA/C and MREJ (MRSA) Resista Detected (Not Detect)
[2024-01-26] MEDS: VANCOMYCIN 1,250 MG/250 ML PIGGYBACK 250 MG IV (08:38)
--- NOTE | 2024-01-26 10:22 | CM.DANOTE ---
Patient is an 83 yo male who was admitted INPT Status on 01/25/24 for Foot Infection. Pt has [facility] through [employer] for insurance and his PCP is Dr. Ke Meier. EMR was reviewed. Per , pt with prior left foot amputation from prior osteomyelitis and now with Right Diabetic Foot Ulcer and r/o Sepsis and osteo. Pt likely may need at least 2 weeks IV-Abx at d/c pending MRI and Ortho. MRI pending. Ortho Consult pending after MRI results. PT/OT to be ordered after Ortho recommendations and WBS determined. SW met bedside with pt and explained role and pt confirms he lives in [place] alone at home and is independent with ADLs at baseline, drives, and does not typically use DME for ambulation. Pt has local supportive friends that he meets with regularly and who could provide some support but no local family. Pt states his only family now is his nephew/DPOA Anoop Jeffers who lives in [place] and pt already updated him that he was admitted to the hospital. Pt denies any hx of HH or SNF for himself but his used HH a few years ago. SW explained the potential of IV-Abx at discharge pending MRI and Ortho COnsult and possible options of outpt Infusion Clinic if only needed once a day, Home Infusion, and SNF depending on his needs. Pt confirms he has no hx of home or outpt IV-Abx. Preference is home if possible. SW spoke to Cristopher at [facility] and updated and uncertain about IV-Abx needs at d/c and they will review and continue to follow but anticipate his insurance should have good coverage of home infusion if needed and SW faxed initial referral to [facility] to review. Plan: SW to follow closely for MRI and Ortho towards determining discharge planning needs and likely IV-Abx at d/c. SW to follow for PT/OT evals to confirm safe plan of home. DIVINE Bautista Discharge Planning/Care Management Advanced directive, confirm from FAMILY Start: 01/25/24 17:57 Freq: Q24H Status: Active Protocol: Document 01/25/24 17:57 [facility] (Rec: 01/25/24 17:57 [facility] [id number]) Advance Directive, confirm on record Time 17:57 Person contacted patient to bring in on own. Copy received No Advanced directive available on record No CM Discharge Assessment Start: 01/26/24 10:15 Freq: Status: Active Protocol: Document 01/26/24 10:20 [facility] (Rec: 01/26/24 10:22 [facility] [id number]) Discharge Planning Assessment Assigned [employer] DIVINE Arriola DPOA/Assigned Designee Name ailyn Jeffers, lives in [place] Advance Directives? Yes Advance Directives on File No History Provided By Patient,Medical Record Has Patient been admitted in last 30 No days? Prior Living Arrangements House Household Members none Type of transporation used prior to Drives own vehicle admit Independent with ADL's Yes Is patient alert and oriented? Yes Caregiver for Another No DME Already Rented / Owned Cane Patient/Family Preference [facility]dc Facility,Home with Home Health Comment HH vs SNF pending Ortho Consult and IV-Abx needs Barriers to Discharge No Discharge Plan Home with Home Health Community [facility] IV Therapy Transportation Arrangement friend will plan to transport if safe for home Referrals Initiated Other Additional Comment [facility] reviewing in case IV-Abx needed at d/c Medicare Choice List Provided Yes Medicare choice list reviewed on patient electronic tablet with Whiteboard Updated in Patient Room with Yes name and ext. # of [employer] Review Status In Process Please Provide Date Initial DC 01/26/24 Assessment Was Performed Next Review Type Continued Stay Review
--- NOTE | 2024-01-26 14:14 | P.PN_ITS ---
Subjective Subjective Interval history: 83 M with diabetic foot ulcer. Overnight borderline febrile, blood cultures 2/4 positive with PCR consistent with MRSA, placed on contact isolation. Patient with continued pain in his foot, not much change in erythema. Exam Vital Signs (past 8 hours): - 01/26/24 08:00 01/26/24 12:00 Temperature 98.2 F 97.8 F Pulse Rate 81 75 Respiratory Rate 16 16 Blood Pressure 118/51 L 119/55 L Pulse Oximetry 95 98 Oxygen Flow Rate 0 0 Oxygen Delivery Method Room Air Oxygen Flow Rate 0 Narrative Exam Narrative: GEN: no acute distress HEENT: moist mucous membranes, PERRL NECK: trachea midline, no JVD CV: regular rate and rhythm, no murmurs PULM: clear bilaterally ABD: soft, nontender, nondistended, no organomegaly EXT: warm and well perfused with no edema, R foot with plantar surface callous, with central area mild serous drainage, dorsal erythema and warmth approx 2x3 cm just proximal to his 2nd and 3rd toes. NEURO: awake, alert, oriented, no focal deficits Objective Labs 01/26/24 05:50 01/26/24 05:50 Labs: Laboratory Results - last 24 hr 01/26/24 01/26/24 05:50 12:08 WBC 17.7 H RBC 3.88 L Hgb 11.5 L Hct 34.1 L MCV 87.9 MCH 29.6 MCHC 33.6 RDW 14.7 Plt Count 257 Neut % (Auto) 84.7 H Lymph % (Auto) 6.1 L [place] % (Auto) 8.9 Eos % (Auto) 0.1 L Baso % (Auto) 0.2 Neut # (Auto) 09277 H Lymph # (Auto) 1100 [place] # (Auto) 1600 H Eos # (Auto) 0 Baso # (Auto) 0 ESR 32 H Sodium 131 L Potassium 4.1 Chloride 100 Carbon Dioxide 26 BUN 39 H Creatinine 1.18 Estimated GFR > 60 BUN/Creatinine Ratio 33.1 H Glucose 123 H Hemoglobin A1c 6.6 H Calcium 8.2 L Total Bilirubin 0.7 AST 23 ALT 35 Alkaline Phosphatase 87 C-Reactive Protein 19.5 H Total Protein 5.9 L Albumin 3.0 L Globulin 2.9 Albumin/Globulin Ratio 1.0 A.calcoaceticus-baumannii cmplx PCR Not detected Bacteroides fragilis Not detected Honey albicans (PCR) Not detected Honey auris (PCR) Not detected C. glabrata (PCR) Not detected C. krusei (PCR) Not detected C. parapsilosis (PCR) Not detected C. tropicalis (PCR) Not detected C. neoform/gattii (PCR) Not detected Enterobacterales (PCR) Not detected E. cloacae complex PCR Not detected Enterococc faecalis PCR Not detected Enterococc faecium PCR Not detected E. coli (PCR) Not detected H. influenzae (PCR) Not detected Klebsiella aerogenes (PCR) Not detected Klebsiella oxytoca PCR Not detected Klebsiella pneumoniae Not detected List. monocytogenes PCR Not detected N. meningitidis (PCR) Not detected Proteus species (PCR) Not detected Salmonella spp. (PCR) Not detected Serratia marcescens PCR Not detected Staphylococcus sp PCR Detected Staph aureus (PCR) Detected mecA/C & MREJ Resist Gene Detected mecA/C-Methicil Resis Gene Not applicable mcr-1 Colistin Res Gene PCR Not applicable Staph epidermidis (PCR) Not detected Staph lugdunensis PCR Not detected S. maltophilia (PCR) Not detected Streptococcus sp PCR Not detected Group A Strep (PCR) Not detected Strep agalactiae (PCR) Not detected Strep pneumoniae (PCR) Not detected P. aeruginosa (PCR) Not detected Roderick/B-Vanco Res Genes Not applicable blaIMP Car res Gene PCR Not applicable KPC-Carbap Res Gene PCR Not applicable blaNDM Car Res Gene PCR Not applicable OXA-48 Carbapenem Resis Gene (PCR) Not applicable blaVIM Car Res Gene PCR Not applicable CTX-M Gene Resistance (PCR) Not applicable [facility] Medical History Type 2 diabetes mellitus with other specified complication PVCs (premature ventricular contractions) First degree AV block LBBB (left bundle branch block) Neuropathy Diabetic Charcot foot Hammertoe of left foot Diabetic foot infection Osteoarthritis of foot, left Fracture of sesamoid bone of foot, closed Foot pain, left Diabetes mellitus Coronary artery disease BPH (benign prostatic hyperplasia) Hypertension Hyperlipidemia Sleep apnea (~1999) Chronic cough (~2005) Allergies Foot pain (~2009) Ankle pain (~2014) Recurrent sinusitis (~1993) Cardiac arrhythmia Surgical History S/P foot surgery, left (06/04/23) Hx of foot surgery (09/19/22) Anesthesia History of appendectomy History of quadruple bypass (2010) Family History Father Cancer Social History household members: none Smoking Status: Former smoker alcohol intake: current eating out: 1-3 times/week Type(s) of exercise: other Assessment & Plan Assessment & Plan narrative: #diabetic foot ulcer, present on admission, rule out sepsis, Gram positive bacteremia. - pain control - orthopedic consult pending MRI - MRI ordered w/ and w/o contrast - ESR CRP mildly elevated - continue levofloxacin with history of stenotrophomonas on prior cultures. Continue vancomycin with dosing per pharmacy. - SOFA score is 1, does have elevated WBC count, no other signs of end organ damage other than elevated bilirubin - blood cultures 2/4 positive with MRSA noted on PCR. Pending final speciation and sensitivity now. - repeat blood cultures ordered for this morning once blood cultures were positive. TTE did not show obvious vegetation. #history of 2nd degree type 1 block, bradycardia - no beta myke given prior history, block improved last admission - continue telemetry - EKG ordered # DM2 -sliding scale insulin -hold home semaglutide # BPH -continue finasteride and terazosin # HTN -continue amlodipine replacing home felodipine. Hold losartan HCTZ in case of possible OR tomorrow and possible sepsis. Code: Full, surrogate is patient's friend Thompson DVT: SCDs, pending orthopedic consultation in case of operative interventions. I have utilized all available immediate resources to obtain, update, or review the patient's current medications. Dispo: patient admitted under inpatient status. Unclear if will be able to discharge home or possible SNF, will have PT/OT evaluations after above evaluation. Will need 2 weeks of IV antibiotics at minimum. Additional history obtained via discussions with the ER provider. These discussions contributed to the creation of the above assessment and plan. I have reviewed patient's presenting documentation, labs, and imaging personally. Time-Based Coding :: [TOTAL MINUTES] spent with patient and on the chart (including review of chart, obtaining history, exam, reviewing outside data, placing orders, documenting exam and treatment plan, and counseling patient) on [DATE].
[2024-01-26] MEDS: OXYCODONE IR 5 MG TABLET PO (15:59)
[2024-01-26] MEDS: TERAZOSIN 5 MG CAPSULE 10 MG PO (17:14)
[2024-01-26] MEDS: levoFLOXacin 750 MG/150 ML PIGGYBACK 100 MG IV (20:42)
[2024-01-27] VITALS (16 sets, daily range): BP systolic 101–142; BP diastolic 54–84; PULSE 56–75; RESP 16–22; TEMP 36.2–37; O2SAT 95–100; BMI 28.3
[2024-01-27] MEDS: VANCOMYCIN 1,250 MG/250 ML PIGGYBACK 250 MG IV ×2 (01:00→18:51)
[2024-01-27] MEDS: OXYCODONE IR 5 MG TABLET PO ×2 (05:16→13:24)
[2024-01-27 06:35] LABS: Add Manual Diff / Slide Review NO; Basophils Absolute Auto 0 /uL (0-100); Basophils Percent Auto 0.2 % (0-2); Eosinophils Absolute Auto 100 /uL (0-450); Eosinophils Percent Auto 0.7 % (2-4); Hematocrit 33.6 % (41-53); Hemoglobin 11.3 g/dL (13.5-17.5); Lymphocytes Absolute Auto 1000 /uL (1100-4500); Lymphocytes Percent Auto 6.4 % (25-40); Mean Corpuscular HGB Conc 33.5 % (30-36); Mean Corpuscular Hemoglobin 29.1 PG (26-34); Mean Corpuscular Volume 86.9 fL (80-100); Monocytes Absolute Auto 1400 /uL (0-900); Monocytes Percent Auto 8.6 % (3-14); Neutrophils Absolute Auto 13600 /uL (1500-7000); Neutrophils Percent Auto 84.1 % (50-75); Platelet Count 287 X10^3/uL (150-400); Red Blood Cell Count 3.87 X10^6/uL (4.5-5.9); Red Cell Distribution Width 14.9 % (11.6-14.8); White Blood Cell Count 16.2 X10^3/uL (4.5-11.0)
[2024-01-27] MEDS: PANTOPRAZOLE DR 20 MG TABLET PO (06:35)
[2024-01-27 06:53] LABS: Alanine Aminotransferase 51 IU/L (<50); Albumin 2.7 g/dL (3.5-5.0); Alkaline Phosphatase 101 U/L (38-126); Aspartate Aminotransferase 51 IU/L (17-59); BUN Creatinine Ratio 33.3 (6-22); Bilirubin Total 0.7 mg/dL (0.2-1.3); Blood Urea Nitrogen 34 mg/dL (9-20); Calcium 8.2 mg/dL (8.4-10.2); Carbon Dioxide 25 mmol/L (22-32); Chloride 100 mmol/L (98-107); Estimated Glomerular Filt Rate > 60 mL/min (>60); Globulin 2.8 g/dL (1.7-4.1); Glucose 122 mg/dL (80-110); HEMOLYSIS < 15 (0-50); Potassium 3.8 mmol/L (3.4-5.1); Sodium 129 mmol/L (137-145); Total Protein 5.5 g/dL (6.3-8.2)
[2024-01-27] MEDS: AMLODIPINE 5 MG TABLET PO (08:20)
[2024-01-27] MEDS: FINASTERIDE 5 MG TABLET PO (08:20)
--- NOTE | 2024-01-27 10:50 | PM.PN.1 ---
Subjective Subjective Interval history: 83 M with diabetic foot ulcer, MRI showing osteomyelitis. Improved fevers. blood cultures 4/4 positive with PCR consistent with MRSA, placed on contact isolation. Patient with continued pain in his foot, slightly improved today erythema. Exam Vital Signs (past 8 hours): - 01/27/24 03:00 01/27/24 06:00 01/27/24 08:00 Temperature 97.7 F 97.3 F L Pulse Rate 75 74 Respiratory Rate 18 16 Blood Pressure 135/56 L 136/61 Pulse Oximetry 95 95 97 Oxygen Delivery Method Simple Mask Oxygen Flow Rate 0 1 0 Oxygen Delivery Method Simple Mask Oxygen Flow Rate 0 Narrative Exam Narrative: GEN: no acute distress HEENT: moist mucous membranes, PERRL NECK: trachea midline, no JVD CV: regular rate and rhythm, no murmurs PULM: clear bilaterally ABD: soft, nontender, nondistended, no organomegaly EXT: warm and well perfused with no edema, R foot with plantar surface callous, with central area mild serous drainage, dorsal erythema and warmth approx 2x3 cm just proximal to his 2nd and 3rd toes. NEURO: awake, alert, oriented, no focal deficits Objective Labs 01/27/24 06:11 01/27/24 06:11 Labs: Laboratory Results - last 24 hr 01/27/24 06:11 WBC 16.2 H RBC 3.87 L Hgb 11.3 L Hct 33.6 L MCV 86.9 MCH 29.1 MCHC 33.5 RDW 14.9 H Plt Count 287 Neut % (Auto) 84.1 H Lymph % (Auto) 6.4 L [place] % (Auto) 8.6 Eos % (Auto) 0.7 L Baso % (Auto) 0.2 Neut # (Auto) 84725 H Lymph # (Auto) 1000 L [place] # (Auto) 1400 H Eos # (Auto) 100 Baso # (Auto) 0 Sodium 129 L Potassium 3.8 Chloride 100 Carbon Dioxide 25 BUN 34 H Creatinine 1.02 Estimated GFR > 60 BUN/Creatinine Ratio 33.3 H Glucose 122 H Calcium 8.2 L Total Bilirubin 0.7 AST 51 ALT 51 H Alkaline Phosphatase 101 Total Protein 5.5 L Albumin 2.7 L Globulin 2.8 Albumin/Globulin Ratio 1.0 PFS Medical History Type 2 diabetes mellitus with other specified complication PVCs (premature ventricular contractions) First degree AV block LBBB (left bundle branch block) Neuropathy Diabetic Charcot foot Hammertoe of left foot Diabetic foot infection Osteoarthritis of foot, left Fracture of sesamoid bone of foot, closed Foot pain, left Diabetes mellitus Coronary artery disease BPH (benign prostatic hyperplasia) Hypertension Hyperlipidemia Sleep apnea (~1999) Chronic cough (~2005) Allergies Foot pain (~2009) Ankle pain (~2014) Recurrent sinusitis (~1993) Cardiac arrhythmia Surgical History S/P foot surgery, left (06/04/23) Hx of foot surgery (09/19/22) Anesthesia History of appendectomy History of quadruple bypass (2010) Family History Father Cancer Social History household members: none Smoking Status: Former smoker alcohol intake: current eating out: 1-3 times/week Type(s) of exercise: other Assessment & Plan Assessment & Plan narrative: #diabetic foot ulcer with osteomyelitis, present on admission, ruled out sepsis. Staph bacteremia. - continue current pain control - orthopedic consult appreciated. Orthopedics doing extensive pre-operative planning in hopes of minimizing extent of amputation required. Will follow up after to determine optimal length of IV antibiotic therapy. Also need finalized cultures prior to infectious disease consultation. - MRI ordered w/ and w/o contrast showed osteomyelitis - ESR CRP mildly elevated - continue levofloxacin with history of stenotrophomonas on prior cultures. Continue vancomycin with dosing per pharmacy. - SOFA score is 1, does have elevated WBC count, no other signs of end organ damage other than elevated bilirubin. WBC improving with current therapy. - blood cultures / positive with MRSA noted on PCR. Pending final speciation and sensitivity now. Repeat blood cultures 01/25 are without growth. - TTE did not show obvious vegetation. #history of 2nd degree type 1 block, bradycardia - no beta myke given prior history, block improved last admission - continue telemetry - EKG ordered # DM2 -sliding scale insulin -hold home semaglutide # BPH -continue finasteride and terazosin # HTN -continue amlodipine replacing home felodipine. Holding losartan HCTZ for OR today. Can resume tomorrow but normotensive today. Code: Full, surrogate is patient's friend Thompson DVT: SCDs, pending orthopedic consultation in case of operative interventions. I have utilized all available immediate resources to obtain, update, or review the patient's current medications. Dispo: patient admitted under inpatient status. Unclear if will be able to discharge home or possible SNF, will have PT/OT evaluations after above evaluation. Will need 2 weeks of IV antibiotics at minimum. Additional history obtained via discussions with the orthopedic surgeon, pharmacist, director case management today. These discussions contributed to the creation of the above assessment and plan. I have reviewed patient's presenting documentation, labs, and imaging personally. Time-Based Coding :: [TOTAL MINUTES] spent with patient and on the chart (including review of chart, obtaining history, exam, reviewing outside data, placing orders, documenting exam and treatment plan, and counseling patient) on [DATE].
--- NOTE | 2024-01-27 13:59 | CM.DPC ---
DCP Cont. Reviewed EMR and team rounds for status updates. Pt was taken back to the OR today by Ortho for additional amputation of tissue, bone. Once he's medically stable for d/c, he will need 2-6 weeks OP IV antibiotics, [facility] is aware and is monitoring for final plan. SNF vs. Home, likely SNF, depending on how he does with therapies. Monitoring closely.
--- NOTE | 2024-01-27 15:34 | EKG_ITS ---
[address] [address] Test Date: 2024-01-27 Pat Name: Roni Sage Department: [facility] Room: 208 Gender: Male Range Scientist: MYLES : 1940 Requested By: Order Number: [id number] Reading MD: Ciro Pace Measurements Intervals [place] Rate: 65 P: WI: QRS: 92 QRSD: 148 T: -32 QT: 438 QTc: 455 Interpretive Statements Atrial fibrillation Rightward axis Nonspecific intraventricular block Minimal voltage criteria for LVH, may be normal variant ( Reji product ) Electronically Signed On 01-28-2024 11:25:32 PDT by Ciro Pace
--- NOTE | 2024-01-27 18:45 | P.HP_ITS ---
History of Present Illness History of Present Illness Chief complaint: r foot infection/pain Narrative: This 83 year old male patient is seen in evaluation for a right foot osteomyelitis effecting his second toe and the distal portion of his 2nd metatarsal. It has been present for several months. He is diabetic. He has a history of prior toe amputation from my partner Dr. Waters on his other side. Since admission he has had positive blood cultures [facility] Medical History Type 2 diabetes mellitus with other specified complication PVCs (premature ventricular contractions) First degree AV block LBBB (left bundle branch block) Neuropathy Diabetic Charcot foot Hammertoe of left foot Diabetic foot infection Osteoarthritis of foot, left Fracture of sesamoid bone of foot, closed Foot pain, left Diabetes mellitus Coronary artery disease BPH (benign prostatic hyperplasia) Hypertension Hyperlipidemia Sleep apnea (~1999) Chronic cough (~2005) Allergies Foot pain (~2009) Ankle pain (~2014) Recurrent sinusitis (~1993) Cardiac arrhythmia Surgical History S/P foot surgery, left (06/04/23) Hx of foot surgery (09/19/22) Anesthesia History of appendectomy History of quadruple bypass (2010) Family History Father Cancer Social History household members: none Smoking Status: Former smoker alcohol intake: current eating out: 1-3 times/week Type(s) of exercise: other Meds Home Medications and Allergies Home Medications Medication Instructions Recorded Confirmed Type multivitamin,yj-pgai-notsayps 1 tab PO DAILY #90 tabs 04/06/20 01/25/24 Rx (Complete Multivitamin tablet) lancets 33 gauge (OneTouch Delica #100 ea 06/16/20 01/25/24 Rx Lancets) blood-glucose meter (Blood Glucose #1 ea 07/06/20 01/25/24 Rx Monitoring kit) Parking Permit... 1 unit Not Applicable .continuous 02/13/21 01/25/24 Rx #1 unit blood sugar diagnostic (OneTouch See Rx Instructions .Route 07/16/21 01/25/24 Rx Verio test strips) .COMPLEX #100 strips aspirin 81 mg tablet 81 mg PO DAILY 06/05/23 01/25/24 History losartan 100 See Rx Instructions .Route 07/21/23 01/25/24 Rx mg-hydrochlorothiazide 25 mg tablet .COMPLEX #90 tabs semaglutide 0.25 mg or 0.5 mg (2 0.5 mg (0.736 mL) SUBCUT QWEEK #3 12/22/23 01/25/24 Rx mg/3 mL) subcutaneous pen injector mL (Ozempic) felodipine 5 mg tablet,extended 5 mg PO DAILY 01/25/24 01/25/24 History release 24 hr finasteride 5 mg tablet 5 mg PO DAILY 01/25/24 01/25/24 History omeprazole 20 mg capsule,delayed 20 mg PO DAILY 01/25/24 01/25/24 History release rosuvastatin 20 mg tablet 20 mg PO DAILY 01/25/24 01/25/24 History terazosin 10 mg capsule 10 mg PO QPM 01/25/24 01/25/24 History Allergies Allergy/AdvReac Type Severity Reaction Status Date / Time Penicillins Allergy Intermediate Hives Verified 12/29/23 15:14 metformin AdvReac Intermediate Diarrhea, Verified 12/29/23 15:14 nausea, vomiting azithromycin AdvReac Hives Verified 12/29/23 15:14 Review of Systems Review of Systems ROS: Yes All systems reviewed with the patient and are negative except as otherwise documented Exam Vital Signs (past 8 hours): - 01/27/24 12:00 01/27/24 14:00 01/27/24 16:00 Temperature 98.6 F 97.8 F Pulse Rate 65 67 Respiratory Rate 16 16 Blood Pressure 142/65 H 132/64 Pulse Oximetry 100 98 98 Oxygen Delivery Method Room Air Oxygen Flow Rate 0 0 0 01/27/24 18:01 Temperature 97.7 F Pulse Rate 68 Respiratory Rate 16 Blood Pressure 136/65 Pulse Oximetry 97 Oxygen Delivery Method Room Air Oxygen Flow Rate Oxygen Delivery Method Room Air Oxygen Flow Rate 0 Narrative Exam Narrative: 2nd toe on right foot swollen and erythematous with an exposed ulcer on the plantar surface near his metatarsal head. No draining purulence Const General: cooperative Orientation: alert and awake [facility] Head: normal to inspection Ears: hearing grossly normal bilaterally Eyes General: appearance normal, both eyes and all related structures Neck Neck: normal visual inspection Resp Effort & Inspection: normal respiratory effort and able to speak in complete sentences Cardio Pulses: other (peripheral pulses present) Skin Lesions: no lesions Rashes: no rashes Neuro General: patient alert, patient awake and moves all extremities Psych Appearance: grossly normal Objective Imaging R Foot MRI: My impression: Osteomyelitis effecting 2nd toe and distal 2nd metatarsal Labs 01/27/24 06:11 01/27/24 06:11 Labs: Laboratory Results - last 24 hr 01/27/24 06:11 WBC 16.2 H RBC 3.87 L Hgb 11.3 L Hct 33.6 L MCV 86.9 MCH 29.1 MCHC 33.5 RDW 14.9 H Plt Count 287 Neut % (Auto) 84.1 H Lymph % (Auto) 6.4 L [place] % (Auto) 8.6 Eos % (Auto) 0.7 L Baso % (Auto) 0.2 Neut # (Auto) 97978 H Lymph # (Auto) 1000 L [place] # (Auto) 1400 H Eos # (Auto) 100 Baso # (Auto) 0 Sodium 129 L Potassium 3.8 Chloride 100 Carbon Dioxide 25 BUN 34 H Creatinine 1.02 Estimated GFR > 60 BUN/Creatinine Ratio 33.3 H Glucose 122 H Calcium 8.2 L Total Bilirubin 0.7 AST 51 ALT 51 H Alkaline Phosphatase 101 Total Protein 5.5 L Albumin 2.7 L Globulin 2.8 Albumin/Globulin Ratio 1.0 Assessment & Plan Assessment and plan (1) Type 2 diabetes mellitus with other specified complication: Qualifiers: Diabetes mellitus fci insulin use: without tank terminal gauger use Qualified Code(s): E11.69 - Type 2 diabetes mellitus with other specified complication Status: Acute (2) Diabetic foot ulcer: Qualifiers: Diabetes mellitus type: type 2 Diabetic foot ulcer location: u nspecified part of foot Laterality: right Non-pressure ulcer stage: with other severity Qualified Code(s): E11.621 - Type 2 diabetes mellitus with foot ulcer; L97.518 - Non-pressure chronic ulcer of other part of right foot with other specified severity Status: Acute Plan Plan for partial ray amputation of 2nd toe. Discussed in detail with patient. Return to floor postop. Surgical site marked, informed consent signed. Time-Based Coding :: [TOTAL MINUTES] spent with patient and on the chart (including review of chart, obtaining history, exam, reviewing outside data, placing orders, documenting exam and treatment plan, and counseling patient) on [DATE].
--- NOTE | 2024-01-27 18:55 | PC.NURSE ---
Cardiac: New onset A-fib on tele. Had been in SR. No palpitations, No c/p. [facility] to make this securities underwriter aware. Surgery notified and Dr. Gotti notified. Only order is to get ekg. This was done. Pt has remained c/p free the rest of the shift. Remains in A-fib. He is in OR having his surgery now.
[2024-01-27] MEDS: ACETAMINOPHEN IV 1,000 MG/100 ML VIAL 400 MG IV (19:23)
--- NOTE | 2024-01-27 19:39 | SUR.OPER ---
Supine on padded OR bed, head on pillow, arms secured on padded arm boards at <90 degrees abduction, legs uncrossed, safety belt at thigh, tape over blanket over nonoperative leg, bump under right hip.
[2024-01-27] MEDS: VANCOMYCIN 1,000 MG VIAL 1000 MG TOP (19:49)
[2024-01-27] MEDS: BUPIVACAINE 0.25% (PF) VIAL 30 ML INJ (19:49)
--- NOTE | 2024-01-27 20:20 | P.OP_ITS ---
Procedure & Clinicians Same procedure as scheduled: Yes Indications: Operative Date/Time/Diagnoses Date of procedure: 01/27/24 Pre-op diagnosis: Right 2nd toe osteomyelitis Post-op diagnosis: same Procedure & Clinicians Procedure: Amputation of right 2nd toe and partial amputation of right 2nd metatarsal Same procedure as scheduled: Yes Indications: Osteomyelitis Surgeon: Anoop Waldron Click Yes if Unassisted: Yes Operative Notes Estimated Blood Loss (mL): 10 Procedure in detail: The patient was met in the preoperative holding area and surgery was discussed in detail with him. I explained the deformity that would be left in the toes following the amputation and the planned aftercare. He understood the risks of the surgery and wished to proceed. I elected to proceed with surgery this evening rather than waiting until daylight hours due to the patient's bacteremia. He was brought back to the operating room and anesthesia was induced. A time-out procedure was performed. Imaging displaying the affected digit was displayed throughout the procedure. An Esmarch was used as a local tourniquet. He was prepped and draped in the usual sterile fashion. A dorsal and volar incision extending proximally was utilized to gain access to the 2nd metatarsal. A towel clamp was placed on the toe and a disarticulation through the metatarsophalangeal joint was performed. The toe was then sent for culture. I then retracted proximally to gain exposure to the 2nd metatarsal shaft. A TPS saw was used to cut the 2nd metatarsal and this was removed with a towel clamp excising all surrounding soft tissue attachments. The wound was soaked in Betadine. The wound was copiously irrigated with normal saline. Vancomycin powder was placed in the wound bed. The wound was closed using combination of Vicryl and nylon sutures. A soft dressing was placed Post-operative Plan for aftercare: 1. Continue antibiotic course per medical team 2. Nonweightbearing right lower extremity for 6 weeks 3. Follow cultures from the toe and metatarsal head specimens 4. Follow up in 14-21 days with [facility] orthopedics with a ERICK
[2024-01-27] MEDS: levoFLOXacin 750 MG/150 ML PIGGYBACK 100 MG IV (20:46)
[2024-01-27] MEDS: DOCUSATE 100 MG CAPSULE PO (21:07)
[2024-01-27] MEDS: LACTATED RINGERS 1,000 ML 100 ML IV (21:07)
[2024-01-27] MEDS: SENNOSIDES 8.6 MG TABLET 17.2 MG PO (21:07)
--- NOTE | 2024-01-27 23:19 | PC.NURSE ---
2030 Arrived from PACU alert, awake & hungry. Denies any pain dressing to Rt. foot CDI. After he ambulated to the BR dressing become bloody. Encouraged to just use the urinal in bed tonight. Will cont. plan of care & monitor.
[2024-01-28] VITALS (7 sets, daily range): BP systolic 114–142; BP diastolic 49–68; PULSE 61–70; RESP 17–22; TEMP 35.8–36.4; O2SAT 95–98
[2024-01-28 04:40] LABS: Add Manual Diff / Slide Review NO; Basophils Absolute Auto 0 /uL (0-100); Basophils Percent Auto 0.2 % (0-2); Eosinophils Absolute Auto 200 /uL (0-450); Eosinophils Percent Auto 1.8 % (2-4); Hematocrit 35.5 % (41-53); Hemoglobin 11.9 g/dL (13.5-17.5); Lymphocytes Absolute Auto 1100 /uL (1100-4500); Lymphocytes Percent Auto 9.3 % (25-40); Mean Corpuscular HGB Conc 33.6 % (30-36); Mean Corpuscular Hemoglobin 29.3 PG (26-34); Mean Corpuscular Volume 87.1 fL (80-100); Monocytes Absolute Auto 1300 /uL (0-900); Monocytes Percent Auto 10.5 % (3-14); Neutrophils Absolute Auto 9600 /uL (1500-7000); Neutrophils Percent Auto 78.2 % (50-75); Platelet Count 296 X10^3/uL (150-400); Red Blood Cell Count 4.07 X10^6/uL (4.5-5.9); Red Cell Distribution Width 14.6 % (11.6-14.8); White Blood Cell Count 12.3 X10^3/uL (4.5-11.0)
[2024-01-28 05:02] LABS: Alanine Aminotransferase 80 IU/L (<50); Albumin 2.6 g/dL (3.5-5.0); Albumin Globulin Ratio 0.9 (1.0-2.8); Alkaline Phosphatase 114 U/L (38-126); Aspartate Aminotransferase 79 IU/L (17-59); BUN Creatinine Ratio 32.3 (6-22); Bilirubin Total 0.8 mg/dL (0.2-1.3); Blood Urea Nitrogen 30 mg/dL (9-20); Calcium 8.5 mg/dL (8.4-10.2); Carbon Dioxide 26 mmol/L (22-32); Chloride 101 mmol/L (98-107); Estimated Glomerular Filt Rate > 60 mL/min (>60); Globulin 2.8 g/dL (1.7-4.1); Glucose 101 mg/dL (80-110); HEMOLYSIS < 15 (0-50); Sodium 133 mmol/L (137-145); Total Protein 5.4 g/dL (6.3-8.2)
[2024-01-28] MEDS: OXYCODONE IR 5 MG TABLET PO ×4 (05:21→21:02)
[2024-01-28] MEDS: PANTOPRAZOLE DR 20 MG TABLET PO (06:25)
--- NOTE | 2024-01-28 07:25 | PM.PN.1 ---
Subjective Subjective Interval history: This 83 year old male patient is seen in evaluation for a right foot osteomyelitis effecting his second toe and the distal portion of his 2nd metatarsal. It has been present for several months. He is diabetic. He has a history of prior toe amputation from my partner Dr. Waters on his other side. Since admission he has had positive blood cultures. S: He was doing well after surgery. He denies any nausea, or dyspnea. Minimal pain with his pain medication. Operative note was reviewed and looks like he had clean margins. He does have MRSA bacteremia. A previous wound culture revealed Stenotrophomas. Exam Vital Signs (past 8 hours): - 01/28/24 00:00 01/28/24 00:50 01/28/24 04:00 Temperature 96.4 F L Pulse Rate 61 Respiratory Rate 20 Blood Pressure 114/49 L Pulse Oximetry 96 95 98 Oxygen Delivery Method Room Air Room Air Oxygen Flow Rate 0 01/28/24 04:00 Temperature 97.2 F L Pulse Rate 70 Respiratory Rate 18 Blood Pressure 135/60 Pulse Oximetry 98 Oxygen Delivery Method Oxygen Flow Rate 0 Oxygen Delivery Method Room Air Oxygen Flow Rate 0 Narrative Exam Narrative: NAD, alert and oriented. Fluent speech. Lungs are clear, normal rate and effort. Heart is regular, no murmur gallop or rub. Abdomen is soft, non distended. Extremities are free of edema. Right foot wound is wrapped. Objective Labs 01/28/24 04:14 01/28/24 04:14 Labs: Laboratory Results - last 24 hr 01/28/24 04:14 WBC 12.3 H RBC 4.07 L Hgb 11.9 L Hct 35.5 L MCV 87.1 MCH 29.3 MCHC 33.6 RDW 14.6 Plt Count 296 Neut % (Auto) 78.2 H Lymph % (Auto) 9.3 L [place] % (Auto) 10.5 Eos % (Auto) 1.8 L Baso % (Auto) 0.2 Neut # (Auto) 9600 H Lymph # (Auto) 1100 Wallace # (Auto) 1300 H Eos # (Auto) 200 Baso # (Auto) 0 Sodium 133 L Potassium 4.0 Chloride 101 Carbon Dioxide 26 BUN 30 H Creatinine 0.93 Estimated GFR > 60 BUN/Creatinine Ratio 32.3 H Glucose 101 Calcium 8.5 Total Bilirubin 0.8 AST 79 H ALT 80 H Alkaline Phosphatase 114 Total Protein 5.4 L Albumin 2.6 L Globulin 2.8 Albumin/Globulin Ratio 0.9 L PFSH Medical History Type 2 diabetes mellitus with other specified complication PVCs (premature ventricular contractions) First degree AV block LBBB (left bundle branch block) Neuropathy Diabetic Charcot foot Hammertoe of left foot Diabetic foot infection Osteoarthritis of foot, left Fracture of sesamoid bone of foot, closed Foot pain, left Diabetes mellitus Coronary artery disease BPH (benign prostatic hyperplasia) Hypertension Hyperlipidemia Sleep apnea (~1999) Chronic cough (~2005) Allergies Foot pain (~2009) Ankle pain (~2014) Recurrent sinusitis (~1993) Cardiac arrhythmia Surgical History S/P foot surgery, left (06/04/23) Hx of foot surgery (09/19/22) Anesthesia History of appendectomy History of quadruple bypass (2010) Family History Father Cancer Social History household members: none Smoking Status: Former smoker alcohol intake: current eating out: 1-3 times/week Type(s) of exercise: other Assessment & Plan Assessment & Plan narrative: 1. Diabetic foot ulcer with osteomyelitis, present on admission, and active. - orthopedic consult appreciated. Orthopedics doing extensive pre-operative planning in hopes of minimizing extent of amputation required. Will follow up after to determine optimal length of IV antibiotic therapy. Also need finalized cultures prior to infectious disease consultation. - MRI ordered w/ and w/o contrast showed osteomyelitis - ESR CRP mildly elevated - continue levofloxacin with history of stenotrophomonas on prior cultures. Continue vancomycin with dosing per pharmacy. - SOFA score is 1, does have elevated WBC count, no other signs of end organ damage other than elevated bilirubin. WBC improving with current therapy. - blood cultures / positive with MRSA noted on PCR. Pending final speciation and sensitivity now. Repeat blood cultures 01/25 are without growth. - TTE did not show obvious vegetation. 2. Staph bacteremia, present on admission and active. 3. 2nd degree type 1 block, bradycardia - no beta myke given prior history, block improved last admission - continue telemetry - EKG ordered 4. DM2 -sliding scale insulin -hold home semaglutide 5. BPH -continue finasteride and terazosin 6. HTN -continue amlodipine replacing home felodipine. Holding losartan HCTZ for OR today. Can resume tomorrow but normotensive today. Plan: -anticipate at least 14 days of antibiotics for MRSA bacteremia. -follow up wound cultures for another day and then discuss with ID. -we will begin to organize home IV antibiotics. -we will convert IV Levaquin to p.o.. DENNIS is January 28 or January 29. Code: Full, surrogate is patient's friend Thompson DVT: SCDs, pending orthopedic consultation in case of operative interventions. Time-Based Coding :: [TOTAL MINUTES] spent with patient and on the chart (including review of chart, obtaining history, exam, reviewing outside data, placing orders, documenting exam and treatment plan, and counseling patient) on [DATE].
--- NOTE | 2024-01-28 07:40 | P.PN_ITS ---
Subjective Subjective Date Patient Seen: 01/28/24 Time Patient Seen: 07:40 Interval history: Patient states he is feeling well. No nausea vomiting fevers or chills. He has been ambulating with assistance. Pain is controlled with oral medications. Exam Vital Signs (past 8 hours): - 01/28/24 00:00 01/28/24 00:50 01/28/24 04:00 Temperature 96.4 F L Pulse Rate 61 Respiratory Rate 20 Blood Pressure 114/49 L Pulse Oximetry 96 95 98 Oxygen Delivery Method Room Air Room Air Oxygen Flow Rate 0 01/28/24 04:00 Temperature 97.2 F L Pulse Rate 70 Respiratory Rate 18 Blood Pressure 135/60 Pulse Oximetry 98 Oxygen Delivery Method Oxygen Flow Rate 0 Oxygen Delivery Method Room Air Oxygen Flow Rate 0 Narrative Exam Narrative: Exposed wound has dried blood throughout the gauze. Patient is able to dorsi plantar flex against resistance. Sensation to light touch to other exposed toes. Capillary refill of the digits are less than 2 seconds Objective Labs 01/28/24 04:14 01/28/24 04:14 Labs: Laboratory Results - last 24 hr 01/28/24 04:14 WBC 12.3 H RBC 4.07 L Hgb 11.9 L Hct 35.5 L MCV 87.1 MCH 29.3 MCHC 33.6 RDW 14.6 Plt Count 296 Neut % (Auto) 78.2 H Lymph % (Auto) 9.3 L [place] % (Auto) 10.5 Eos % (Auto) 1.8 L Baso % (Auto) 0.2 Neut # (Auto) 9600 H Lymph # (Auto) 1100 [place] # (Auto) 1300 H Eos # (Auto) 200 Baso # (Auto) 0 Sodium 133 L Potassium 4.0 Chloride 101 Carbon Dioxide 26 BUN 30 H Creatinine 0.93 Estimated GFR > 60 BUN/Creatinine Ratio 32.3 H Glucose 101 Calcium 8.5 Total Bilirubin 0.8 AST 79 H ALT 80 H Alkaline Phosphatase 114 Total Protein 5.4 L Albumin 2.6 L Globulin 2.8 Albumin/Globulin Ratio 0.9 L PFSH Medical History Type 2 diabetes mellitus with other specified complication PVCs (premature ventricular contractions) First degree AV block LBBB (left bundle branch block) Neuropathy Diabetic Charcot foot Hammertoe of left foot Diabetic foot infection Osteoarthritis of foot, left Fracture of sesamoid bone of foot, closed Foot pain, left Diabetes mellitus Coronary artery disease BPH (benign prostatic hyperplasia) Hypertension Hyperlipidemia Sleep apnea (~1999) Chronic cough (~2005) Allergies Foot pain (~2009) Ankle pain (~2014) Recurrent sinusitis (~1993) Cardiac arrhythmia Surgical History S/P foot surgery, left (06/04/23) Hx of foot surgery (09/19/22) Anesthesia History of appendectomy History of quadruple bypass (2010) Family History Father Cancer Social History household members: none Smoking Status: Former smoker alcohol intake: current eating out: 1-3 times/week Type(s) of exercise: other Assessment & Plan Post-op Postoperative Procedures: Procedures Operation Date: 01/27/24 16:00 Actual Procedure Side Surgeon p Right 2nd Toe AND METATARSAL Amputation Right Anoop Waldron MD Postoperative day: 1 Postoperative status: doing well Postoperative plan narrative: Cultures taken during surgery return with MRSA. Hospitalist will manage antibiotics and disposition. Change dressing today. Nonweightbearing right lower extremity for 6 weeks Follow up in 14-21 days with [facility]oped[facility] with a PA Time Spent With Patient Time with patient: 15-24 minutes
[2024-01-28] MEDS: SODIUM CHLORIDE 0.9% FLUSH 10 ML IV ×2 (09:00→20:56)
[2024-01-28] MEDS: ASPIRIN 81 MG CHEW TAB PO (09:40)
[2024-01-28] MEDS: AMLODIPINE 5 MG TABLET PO (09:41)
[2024-01-28] MEDS: DOCUSATE 100 MG CAPSULE PO ×2 (09:41→20:53)
[2024-01-28] MEDS: FINASTERIDE 5 MG TABLET PO (09:41)
--- NOTE | 2024-01-28 11:00 | PT.IIE ---
Current Diagnoses Type 2 diabetes mellitus with foot ulcer (01/25/24) Type 2 diabetes mellitus with other specified complication (01/25/24) Non-pressure chronic ulcer of other part of right foot with other specified severity (01/25/24) Surgery Performed Operation Date: 01/27/24 16:00 Actual Procedures p Right 2nd Toe AND METATARSAL Amputation(Right) - Anoop Waldron MD Surgical History (Last Reviewed 01/28/24 @ 07:36 by Ciro Pace MD) Anesthesia History of appendectomy History of quadruple bypass (2010) Hx of foot surgery (09/19/22) S/P foot surgery, left (06/04/23) Medical History (Last Reviewed 01/28/24 @ 07:36 by Ciro Pace MD) Allergies Ankle pain (~2014) BPH (benign prostatic hyperplasia) Cardiac arrhythmia Chronic cough (~2005) Coronary artery disease Diabetes mellitus Diabetic Charcot foot Diabetic foot infection First degree AV block Foot pain (~2009) Foot pain, left Fracture of sesamoid bone of foot, closed Hammertoe of left foot Hyperlipidemia Hypertension LBBB (left bundle branch block) Neuropathy Osteoarthritis of foot, left PVCs (premature ventricular contractions) Recurrent sinusitis (~1993) Sleep apnea (~1999) Type 2 diabetes mellitus with other specified complication Physical Therapy Inpatient Evaluation/Re-Eval M1 PT/OT-IP Prior Functional Status Start: 01/28/24 12:18 Freq: NEEDED Status: Active Protocol: Document 01/28/24 11:00 AB (Rec: 01/28/24 12:41 AB [id number]) Medical Review Prior Functional Status Medical History Reviewed Yes Communication able to make needs known Mobility and Gait pt staed that he was independent with all mobilities and ambulation without AD Social History Household Members none Living Arrangements House Number of Floors (Floors) One Floor Number of Stairs To Enter/Railing? 1 step to enter Home Environment Standard Height Toilet,High Toilet,Walk in Shower Home Equipment Four Wheel Walker,Straight Cane,Shower Seat with Backrest ,Hand Held Shower,Grab Bars Near Toilet,Grab Bars In Shower Additional Social History Comment pt has an Upright Walker M2 PT-IP Current Condition Start: 01/28/24 12:18 Freq: NEEDED Status: Active Protocol: Document 01/28/24 11:00 AB (Rec: 01/28/24 12:41 AB [id number]) Physical Therapy Current Condition Current Condition Evaluation Date 01/28/24 Treatment Diagnosis s/p R 2nd toe amputation; difficulty in walking Onset Date 01/25/24 M3 PT-IP Subjective Start: 01/28/24 12:18 Freq: NEEDED Status: Active Protocol: Document 01/28/24 11:00 AB (Rec: 01/28/24 12:41 AB [id number]) Subjective Physical Therapy Visit Type Type Initial Evaluation Visit Start Time 11:00 Visit Stop Time 11:45 Number of SPARKER AND PATCHER Visits 0 Physical Therapy Visit Comments Patient Comments agreeable to do PT Therapy Pain Assessment Pain When Pain Assessed At Rest Pain Present Pain Present Pain Reported Location right foot Intensity 5 Scale Used Numeric (0 - 10) Pain Management Techniques Distraction,Modification of Treatment,Re-positioning, Timing of Activity with Medications M4 PT-IP Mobility and Gait Start: 01/28/24 12:18 Freq: NEEDED Status: Active Protocol: Document 01/28/24 11:00 AB (Rec: 01/28/24 12:41 [id number]) PT-Bed Mobility Assessment Supine to Sit Supine to Sit Standby Assistance PT-Transfer Assessment Sit to and From Stand Sit to and from Stand Moderate Assistance,Maximum Assistance,1 Person Assistance ,Use of Upper Extremities Equipment Transfer Assistive Device Gait Belt,Front Wheeled Walker Orthotic/Prosthetic Devices or Brace: No Transfers Transfer Destination Chair Transfer Technique Stand Step Pivot Transfer Ability Level of Assist Moderate Assistance,Maximum Assistance,1 Person Assistance ,Use of Upper Extremities Comments Mobility Comments pt supine in bed and agreeable to do PT. obtained PLOF and home set up. BP: 142/63 O2 sat 98% and WA 60. pt completed supine to sit SBA. able to sit on EOB SBA. educated on NWB on RLE. completed sit to stand mod to max A and max cues and step transfer to chair using fWW mod to max A and max cues. pt needed assistance and cues for maintaining NWB on RLE. positioned pt on the chair. call light and table placed within reach. PT-Balance Assessment Sitting Balance and Reactions Static Sitting Balance Ability Normal Dynamic Sitting Balance Ability Good Standing Balance and Reactions Static Standing Balance Ability Fair Dynamic Standing Balance Ability Poor Device Used FWW M5 PT-IP Objective Assessments Start: 01/28/24 12:18 Freq: NEEDED Status: Active Protocol: Document 01/28/24 11:00 AB (Rec: 01/28/24 12:41 AB [id number]) Orientation Orientation/Cognition Level of Alertness Alert Orientation Name,Place,Situation Language Function Ability No Deficits Noted Safety Awareness Decreased Safety Awareness Memory Description No Deficits Noted Gross Range of Motion Lower Extremity ROM Assessment Within Functional Limits Strength Lower Extremity Strength Assessment Within Functional Limits Muscle Tone Muscle Tone WNL Yes M6 PT-IP Treatment Start: 01/28/24 12:18 Freq: NEEDED Status: Active Protocol: Document 01/28/24 11:00 AB (Rec: 01/28/24 12:41 [id number]) Physical Therapy Treatment Education Education Provided Weight Bearing Status,Safety M7 PT-IP Assessment and Plan Start: 01/28/24 12:18 Freq: NEEDED Status: Active Protocol: Document 01/28/24 11:00 AB (Rec: 01/28/24 12:41 [id number]) PT Summary Assessment and Plan Potential Rehabilitation Potential Fair Status of Condition at Evaluation Evolving Summary Impairments Pain,ROM,Strength,Balance, Coordination,Sensation,Tone, Cognition,Bed Mobility, Transfers,Gait,Activity Tolerance Progress Towards Goals Slow Progress due to Medical Issues,Slow Progress due to Activity Tolerance Assessment Summary pt is an 83 y/o M s/p R 2nd toe amputation POD 1. pt is NWB on RLE. pt requiring mod to max A for transfers using FWW. d/c plan depending on progress but at this time may require SNF rehab. pt lives alone and will not have assistance at home. will continue to assess. Goals Bed Mobility Goal Independent Transfer Goal Independent,Front Wheeled Walker Gait Goal Independent,Front Wheel Walker Gait Distance 50 Other Goals improve ambulation using FWW ~ 75 ft mod I up/down 1 step using FWW SBA Days to Meet Goals 10 Frequency of Treatment Frequency Of Treatment Once a Day Treatment Plan Physical Therapy Treatment Plan Bed Mobility Training,Transfer Training,Gait Training, Therapeutic Exercise,Balance Retraining,Post Op Education, Discharge Planning,Hot or Cold Pack,Neuromuscular Re-ed, Coordination Retraining,Manual Therapy Weight Bearing Status Weight Bearing Status Non-Weight Bearing Allowed Weight Bearing Amount (enter % RLE NWB or #) (%) Recommendations To Nursing Amount of Assist Needed 1 Person Assist Discharge Recommendations PT Discharge Recommendations SNF Rehab Transportation Needs at Discharge Wheelchair/Cabulance
--- NOTE | 2024-01-28 12:15 | CM.DPC ---
DCP Cont. Reviewed EMR and team rounds for status updates. Pt had surgery yesterday for further toe amputations, final cultures are pending and will be needed before the Hospitalist consults with ID on type of antibiotic for final home IV ABO tx. Monitoring closely, [facility] are also following.
[2024-01-28 13:20] LABS: Vancomycin Trough 8.5 ug/mL (10-20)
[2024-01-28] MEDS: VANCOMYCIN 1,250 MG/250 ML PIGGYBACK 250 MG IV (13:54)
[2024-01-28] MEDS: ENOXAPARIN 40 MG/0.4 ML SYRINGE SUBCUT (13:55)
--- NOTE | 2024-01-28 14:45 | OT.IP.EVAL ---
Current Diagnoses Type 2 diabetes mellitus with foot ulcer (01/25/24) Type 2 diabetes mellitus with other specified complication (01/25/24) Non-pressure chronic ulcer of other part of right foot with other specified severity (01/25/24) Surgery Performed Operation Date: 01/27/24 16:00 Actual Procedures p Right 2nd Toe AND METATARSAL Amputation(Right) - Anoop Waldron MD Past Medical History (Last Reviewed 01/28/24 @ 07:36 by Ciro Pace MD) Allergies Ankle pain (~2014) BPH (benign prostatic hyperplasia) Cardiac arrhythmia Chronic cough (~2005) Coronary artery disease Diabetes mellitus Diabetic Charcot foot Diabetic foot infection First degree AV block Foot pain (~2009) Foot pain, left Fracture of sesamoid bone of foot, closed Hammertoe of left foot Hyperlipidemia Hypertension LBBB (left bundle branch block) Neuropathy Osteoarthritis of foot, left PVCs (premature ventricular contractions) Recurrent sinusitis (~1993) Sleep apnea (~1999) Type 2 diabetes mellitus with other specified complication Surgical History (Last Reviewed 01/28/24 @ 07:36 by Ciro Pace MD) Anesthesia History of appendectomy History of quadruple bypass (2010) Hx of foot surgery (09/19/22) S/P foot surgery, left (06/04/23) Occupational Therapy Inpatient Evaluation/Re-Eval M1 PT/OT-IP Prior Functional Status Start: 01/28/24 12:18 Freq: NEEDED Status: Active Protocol: Document 01/28/24 14:48 [facility] (Rec: 01/28/24 15:06 [facility] [id number]) Medical Review Prior Functional Status Medical History Reviewed Yes Communication able to make needs known Mobility and Gait pt stated that he was independent with all mobilities and ambulation without AD Activities of Daily Living and IADL's Pt was completely independent with all ADL and IADL needs. Social History Household Members none Living Arrangements House Number of Floors (Floors) One Floor Number of Stairs To Enter/Railing? 1 step to enter Home Environment Standard Height Toilet,High Toilet,Walk in Shower Home Equipment Four Wheel Walker,Straight Cane,Shower Seat with Backrest ,Hand Held Shower,Grab Bars Near Toilet,Grab Bars In Shower Additional Social History Comment pt has an Upright Walker M2 OT-IP Current Condition Start: 01/28/24 14:47 Freq: Status: Active Protocol: Document 01/28/24 14:48 [facility] (Rec: 01/28/24 15:06 [facility] [id number]) Occupational Therapy Current Condition Current Condition Evaluation Date 01/28/24 Treatment Diagnosis S/P amputation of right toe and partial amp of 2nd metatarsal Diagnosis Onset Date 01/25/24 Weight Bearing Status Weight Bearing Status Non-Weight Bearing Allowed Weight Bearing Amount (enter % RLE NWB or #) (%) M3 OT- IP Subjective and Pain Start: 01/28/24 14:47 Freq: Status: Active Protocol: Document 01/28/24 14:48 [facility] (Rec: 01/28/24 15:06 [facility] [id number]) OT- Subjective Occupational Therapy Visit Type Type Initial Evaluation Visit Start Time 14:05 Visit Stop Time 14:45 Occupational Therapy Visit Comments Patient Comments Pt agreed to do grooming needs in bed. Pt getting dressing on right foot changed by nursing. IV pole alarm going off and nurse requested OT to turn it off as to get pt another bag to run. After OT session, spoke to nurse to remind her the Iv is still turned off, nursing aware. Patient/Caregiver Goals TO go home. OT Pain Assessment Pain When Pain Assessed At Rest Pain Present Pain Present Denied Pain M4 OT- IP ADL's Start: 01/28/24 14:47 Freq: Status: Active Protocol: Document 01/28/24 14:48 [facility] (Rec: 01/28/24 15:06 [facility] [id number]) OT [id number] Comments OT Self-Feeding Comments NO issues anticipated. OT ADL-Grooming General Evaluation Grooming Ability Standby Assistance Areas Needing Assistance Retrieving/Set-up of Grooming Items Comments OT Grooming Comments Able to do while in bed. OT ADL-Oral Care General Eval Oral Care Ability Independent OT ADL-Dressing Comments OT Dressing Comments Assist for all RLE management needs for dressing change. OT ADL-Toileting Comments OT Toileting Comments Pt having to use the urinal. OT ADL-Bathing Comments OT Bathing Comments not performed M5 OT- IP IADL's Start: 01/28/24 14:47 Freq: Status: Active Protocol: Document 01/28/24 14:48 [facility] (Rec: 01/28/24 15:06 [facility] [id number]) OT-Instrumental Activities of Daily Living Deficits IADL Deficits Identified Deficits Home Safety Awareness Awareness of Need for Assistance at Home Good Awareness Ability to Problem Solve Emergency Able to Problem Solve Situations Medication Management Medication Management No Deficits Identified Money Management Money Management No Deficits Identified Meal Preparation Meal Preparation Comments Pt will need assist. Fishing Worker Fishing Worker Comments Pt will need assist. M6 OT- IP Functional Cognition Start: 01/28/24 14:47 Freq: Status: Active Protocol: Document 01/28/24 14:48 [facility] (Rec: 01/28/24 15:06 [facility] [id number]) Cognitive Factors Limiting Selfcare Function Cognitive Ability Level of Alertness Alert Patient Orientation Name,Age,Birthday,Month,Date, Year,Day of Week,Place, Situation Attention Span Ability Capable of Focused Attention, Capable of Sustained Attention Ability to Follow Commands Able to Follow One Step Commands Memory Description No Deficits Noted Cognitive Comments Cognitive Assessment Comments Pt able to follow commands for ADL needs. OT- Vision and Hearing OT- Hearing Assessment OT- Hearing Assessment WFL OT- Vision Assessment Visual Acuity Glasses For Reading Visual Attentiveness WFL Occular Pursuits WFL M7 OT- IP Mobility and Balance Start: 01/28/24 14:47 Freq: Status: Active Protocol: Document 01/28/24 14:48 [facility] (Rec: 01/28/24 15:06 [facility] [id number]) OT-Transfer Assessment Comments Mobility Comments Pt getting dressing change to right foot and able to get up earlier with PT. M8 OT- IP Objective Assessments Start: 01/28/24 14:47 Freq: Status: Active Protocol: Document 01/28/24 14:48 [facility] (Rec: 01/28/24 15:06 [facility] [id number]) OT Gross Range of Motion Upper Extremity Range of Motion Assessment Within Functional Limits OT Strength Upper Extremity Strength Assessment Within Functional Limits M9 OT- IP Assessment and Plan Start: 01/28/24 14:47 Freq: Status: Active Protocol: Document 01/28/24 14:48 [facility] (Rec: 01/28/24 15:06 [facility] [id number]) OT Summary Assessment and Plan Potential Rehabilitation Potential Good Analytic Complexity at Evaluation Moderate Summary OT Impairments Pain,Balance,Functional Mobility,Dressing,Toileting, Bathing,Toilet Transfers, Shower Transfers Progress Towards Goals Slow Progress due to Medical Issues Assessment Summary Pt MOD complexity and main barriers are step, having NWB to Right foot and needing extensive assist for mobility at this time.Pt will benefit from skilled rehab prior to going home. Goals Grooming Goal Independent Dressing Goal Independent Toileting Goal Independent Bathing Goal Standby Assistance Toilet Transfer Goal Independent Shower Transfer Goal Standby Assistance Days to Meet Goals 25 Frequency of Treatment Other frequency 5x/week Treatment Plan OT Treatment Plan ADL Training,Functional Mobility,Patient/Family Education,Discharge Planning Discharge Recommendations OT Discharge Recommendations SNF Rehab Other Discharge Recommendations Pt to transfer with the FWW with MODA x1. Transportation Needs at Discharge Wheelchair/Cabulance
[2024-01-28 17:32] LABS: Vancomycin Peak 25.7 ug/mL (20-40)
[2024-01-28] MEDS: ACETAMINOPHEN 325 MG TABLET 650 MG PO (18:00)
[2024-01-28] MEDS: SENNOSIDES 8.6 MG TABLET 17.2 MG PO (20:53)
[2024-01-28] MEDS: levoFLOXacin 250 MG TABLET 750 MG PO (20:54)
[2024-01-29] VITALS (7 sets, daily range): BP systolic 142–177; BP diastolic 53–74; PULSE 58–71; RESP 16–22; TEMP 36.1–36.7; O2SAT 93–99
[2024-01-29] MEDS: VANCOMYCIN 1,000 MG/200 ML PIGGYBACK 200 MG IV ×2 (01:03→13:06)
[2024-01-29] MEDS: PANTOPRAZOLE DR 20 MG TABLET PO (06:18)
--- NOTE | 2024-01-29 07:18 | P.PN_ITS ---
Subjective Subjective Interval history: This 83 year old male patient is seen in evaluation for a right foot osteomyelitis effecting his second toe and the distal portion of his 2nd metatarsal. It has been present for several months. He is diabetic. He has a history of prior toe amputation from Dr. Waters on his other side. Since admission he has had positive blood cultures (MRSA) and negartive ECHO. S: He was doing well, then we will pain issues. No dyspnea. Exam Vital Signs (past 8 hours): - 01/29/24 00:00 01/29/24 00:00 01/29/24 04:00 Temperature 97 F L 97 F L Pulse Rate 61 60 Respiratory Rate 20 22 Blood Pressure 142/53 H 147/63 H Pulse Oximetry 97 97 99 Oxygen Delivery Method Room Air Oxygen Flow Rate 0 0 01/29/24 04:00 Temperature Pulse Rate Respiratory Rate Blood Pressure Pulse Oximetry 99 Oxygen Delivery Method Room Air Oxygen Flow Rate Oxygen Delivery Method Room Air Oxygen Flow Rate 0 Narrative Exam Narrative: NAD, alert and oriented. Fluent speech. Lungs are clear, normal rate and effort. Heart is regular, no murmur gallop or rub. Abdomen is soft, non distended. Extremities are free of edema. Right foot is wrapped. Objective Labs 01/28/24 04:14 01/28/24 04:14 Labs: Laboratory Results - last 24 hr 01/28/24 01/28/24 12:40 17:02 Vancomycin Peak 25.7 Vancomycin Trough 8.5 L [facility] Medical History Type 2 diabetes mellitus with other specified complication PVCs (premature ventricular contractions) First degree AV block LBBB (left bundle branch block) Neuropathy Diabetic Charcot foot Hammertoe of left foot Diabetic foot infection Osteoarthritis of foot, left Fracture of sesamoid bone of foot, closed Foot pain, left Diabetes mellitus Coronary artery disease BPH (benign prostatic hyperplasia) Hypertension Hyperlipidemia Sleep apnea (~1999) Chronic cough (~2005) Allergies Foot pain (~2009) Ankle pain (~2014) Recurrent sinusitis (~1993) Cardiac arrhythmia Surgical History S/P foot surgery, left (06/04/23) Hx of foot surgery (09/19/22) Anesthesia History of appendectomy History of quadruple bypass (2010) Family History Father Cancer Social History household members: none Smoking Status: Former smoker alcohol intake: current eating out: 1-3 times/week Type(s) of exercise: other Assessment & Plan Assessment & Plan narrative: 1. Diabetic foot ulcer with osteomyelitis, present on admission, and active. - orthopedic consult appreciated. Orthopedics doing extensive pre-operative planning in hopes of minimizing extent of amputation required. Will follow up after to determine optimal length of IV antibiotic therapy. Also need finalized cultures prior to infectious disease consultation. - MRI ordered w/ and w/o contrast showed osteomyelitis - ESR CRP mildly elevated - continue levofloxacin with history of stenotrophomonas on prior cultures. Continue vancomycin with dosing per pharmacy. - SOFA score is 1, does have elevated WBC count, no other signs of end organ damage other than elevated bilirubin. WBC improving with current therapy. - blood cultures 07/02 positive with MRSA noted on PCR. Pending final speciation and sensitivity now. Repeat blood cultures 01/25 are without growth. - TTE did not show obvious vegetation. 2. Staph bacteremia, present on admission and active. 3. 2nd degree type 1 block, bradycardia - no beta myke given prior history, block improved last admission - continue telemetry - EKG ordered 4. DM2 -sliding scale insulin -hold home semaglutide 5. BPH -continue finasteride and terazosin 6. HTN -continue amlodipine replacing home felodipine. Holding losartan HCTZ for OR today. Can resume tomorrow but normotensive today. Plan: -continue vancomycin -attempting to clarify weight-bearing status with Orthopedics as this will dramatically affect his discharge plan of home versus a facility. He own in [place]. -infectious Disease, , recommended a dose of Dalbavancin at discharge. -a PICC was placed, we will use this for access until his discharge. His PICC can be removed at the time of discharge. DENNIS is January 29 or depending on foot restrictions and specific discharge plan. Code: Full, surrogate is patient's friend Thompson DVT: SCDs, pending orthopedic consultation in case of operative interventions. Time-Based Coding :: [TOTAL MINUTES] spent with patient and on the chart (including review of chart, obtaining history, exam, reviewing outside data, placing orders, documenting exam and treatment plan, and counseling patient) on [DATE].
[2024-01-29] MEDS: OXYCODONE IR 5 MG TABLET PO (08:26)
[2024-01-29] MEDS: DOCUSATE 100 MG CAPSULE PO ×2 (08:32→21:56)
[2024-01-29] MEDS: AMLODIPINE 5 MG TABLET PO (08:32)
[2024-01-29] MEDS: ASPIRIN 81 MG CHEW TAB PO (08:32)
[2024-01-29] MEDS: ENOXAPARIN 40 MG/0.4 ML SYRINGE SUBCUT (08:32)
[2024-01-29] MEDS: FINASTERIDE 5 MG TABLET PO (08:32)
[2024-01-29] MEDS: SODIUM CHLORIDE 0.9% FLUSH 10 ML IV ×2 (08:36→22:06)
--- NOTE | 2024-01-29 11:38 | DI.RAD.S_ITS ---
PROCEDURE: XR CHEST FOR PICC 1V INDICATIONS: PICC placement COMPARISON: None. FINDINGS: PICC was placed by the intravenous therapy team from the right side. Fluoroscopic spot film demonstrates the tip of PICC projecting to the area of low SVC. IMPRESSION: Tip of PICC projects to the area of low SVC. Dictated by: Raul Jones M.D. on 01/29/2024 at 11:55 Approved by: Raul Jones M.D. on 01/29/2024 at 11:55
--- NOTE | 2024-01-29 13:48 | PM.PNPO.1 ---
Subjective Subjective Interval history: Patient denies pain. No fever chills. No shortness of breath or chest pain. Exam Vital Signs (past 8 hours): - 01/29/24 08:00 01/29/24 08:00 01/29/24 12:00 Temperature 98.0 F 97.9 F Pulse Rate 58 L 60 Respiratory Rate 16 17 Blood Pressure 164/63 H 175/74 H Pulse Oximetry 97 98 98 Oxygen Delivery Method Room Air Oxygen Delivery Method Room Air Oxygen Flow Rate 0 Narrative Exam Narrative: 83-year-old male sitting at bedside in no apparent distress. Dressing is clean, dry and intact. Objective Labs 01/28/24 04:14 01/28/24 04:14 Labs: Laboratory Results - last 24 hr 01/28/24 17:02 Vancomycin Peak 25.7 PFSH Medical History Type 2 diabetes mellitus with other specified complication PVCs (premature ventricular contractions) First degree AV block LBBB (left bundle branch block) Neuropathy Diabetic Charcot foot Hammertoe of left foot Diabetic foot infection Osteoarthritis of foot, left Fracture of sesamoid bone of foot, closed Foot pain, left Diabetes mellitus Coronary artery disease BPH (benign prostatic hyperplasia) Hypertension Hyperlipidemia Sleep apnea (~1999) Chronic cough (~2005) Allergies Foot pain (~2009) Ankle pain (~2014) Recurrent sinusitis (~1993) Cardiac arrhythmia Surgical History S/P foot surgery, left (06/04/23) Hx of foot surgery (09/19/22) Anesthesia History of appendectomy History of quadruple bypass (2010) Family History Father Cancer Social History household members: none Smoking Status: Former smoker alcohol intake: current eating out: 1-3 times/week Type(s) of exercise: other Assessment & Plan Post-op Postoperative Procedures: Procedures Operation Date: 01/27/24 16:00 Actual Procedure Side Surgeon p Right 2nd Toe AND METATARSAL Amputation Right Anoop Waldron MD Postoperative day: 2 Postoperative status narrative: Stable Postoperative plan narrative: Nonweightbearing right lower extremity for 6 weeks. Follow up cultures. Antibiotics per hospitalist. Follow up outpatient orthopedic clinic in 14-21 days.
--- NOTE | 2024-01-29 14:29 | CM.DPC ---
DCP Cont. Reviewed EMR and team rounds for status updates. Cultures remain pending, waiting for final plan of type of antibiotic, and in what setting-home with [facility] and vs. SNF w/IV antibiotics. Monitoring closely.
--- NOTE | 2024-01-29 14:45 | PT.IPTN ---
Current Diagnoses Type 2 diabetes mellitus with foot ulcer (01/25/24) Type 2 diabetes mellitus with other specified complication (01/25/24) Non-pressure chronic ulcer of other part of right foot with other specified severity (01/25/24) Surgery Performed Operation Date: 01/27/24 16:00 Actual Procedures p Right 2nd Toe AND METATARSAL Amputation(Right) - Anoop Waldron MD Physical Therapy Treatment Note M2 PT-IP Current Condition Start: 01/28/24 12:18 Freq: NEEDED Status: Active Protocol: Document 01/28/24 11:00 AB (Rec: 01/28/24 12:41 AB [id number]) Physical Therapy Current Condition Current Condition Evaluation Date 01/28/24 Treatment Diagnosis s/p R 2nd toe amputation; difficulty in walking Onset Date 01/25/24 M3 PT-IP Subjective Start: 01/28/24 12:18 Freq: NEEDED Status: Active Protocol: Document 01/29/24 14:55 ZF (Rec: 01/29/24 15:02 ZF [id number]) Subjective Physical Therapy Visit Type Type Treatment Note Visit Start Time 14:45 Visit Stop Time 14:53 Number of PAYROLL ACCOUNTING CLERK Visits 1 Physical Therapy Visit Comments Patient Comments Agreeable to PT Therapy Pain Assessment Pain When Pain Assessed At Rest Pain Present Pain Present Denied Pain M4 PT-IP Mobility and Gait Start: 01/28/24 12:18 Freq: NEEDED Status: Active Protocol: Document 01/29/24 14:55 ZF (Rec: 01/29/24 15:02 ZF [id number]) PT-Transfer Assessment Comments Mobility Comments Pt declines getting up with therapy today. Declines transfers and training with scooter, which pt states he has and will use at home. M5 PT-IP Objective Assessments Start: 01/28/24 12:18 Freq: NEEDED Status: Active Protocol: Document 01/28/24 11:00 AB (Rec: 01/28/24 12:41 AB [id number]) Orientation Orientation/Cognition Level of Alertness Alert Orientation Name,Place,Situation Language Function Ability No Deficits Noted Safety Awareness Decreased Safety Awareness Memory Description No Deficits Noted Gross Range of Motion Lower Extremity ROM Assessment Within Functional Limits Strength Lower Extremity Strength Assessment Within Functional Limits Muscle Tone Muscle Tone WNL Yes M6 PT-IP Treatment Start: 01/28/24 12:18 Freq: NEEDED Status: Active Protocol: Document 01/29/24 14:55 MARÍA (Rec: 01/29/24 15:02 ZF [id number]) Physical Therapy Treatment Education Education Provided Weight Bearing Status,Safety M7 PT-IP Assessment and Plan Start: 01/28/24 12:18 Freq: NEEDED Status: Active Protocol: Document 01/29/24 14:55 MARÍA (Rec: 01/29/24 15:02 ZF [id number]) PT Summary Assessment and Plan Potential Rehabilitation Potential Fair Status of Condition at Evaluation Evolving Summary Impairments Pain,ROM,Strength,Balance, Coordination,Sensation,Tone, Cognition,Bed Mobility, Transfers,Gait,Activity Tolerance Progress Towards Goals Slow Progress due to Medical Issues,Slow Progress due to Activity Tolerance Assessment Summary Pt education on equipment for home use including bedside commode, WC, scooter. Pt educated on squat pivot transfers to maintain NWB, pt refuses trialing transfers with therapy. Pt refuses training on scooter which he states he has at home and will figure it out. Pt refuses home health services. Goals Bed Mobility Goal Independent Transfer Goal Independent,Front Wheeled Walker Gait Goal Independent,Front Wheel Walker Gait Distance 50 Other Goals improve ambulation using FWW ~ 75 ft mod I up/down 1 step using FWW SBA Days to Meet Goals 10 Frequency of Treatment Frequency Of Treatment Once a Day Treatment Plan Physical Therapy Treatment Plan Bed Mobility Training,Transfer Training,Gait Training, Therapeutic Exercise,Balance Retraining,Post Op Education, Discharge Planning,Hot or Cold Pack,Neuromuscular Re-ed, Coordination Retraining,Manual Therapy Weight Bearing Status Weight Bearing Status Non-Weight Bearing Allowed Weight Bearing Amount (enter % RLE NWB or #) (%) Recommendations To Nursing Amount of Assist Needed Standby Assistance Discharge Recommendations PT Discharge Recommendations Home with Assistance,Home Health,SNF Rehab Transportation Needs at Discharge Wheelchair/Cabulance
--- NOTE | 2024-01-29 14:53 | OT.IP.TRT ---
Current Diagnoses Type 2 diabetes mellitus with foot ulcer (01/25/24) Type 2 diabetes mellitus with other specified complication (01/25/24) Non-pressure chronic ulcer of other part of right foot with other specified severity (01/25/24) Surgery Performed Operation Date: 01/27/24 16:00 Actual Procedures p Right 2nd Toe AND METATARSAL Amputation(Right) - Anoop Waldron MD Occupational Therapy Treatment Note M2 OT-IP Current Condition Start: 01/28/24 14:47 Freq: Status: Active Protocol: Document 01/28/24 14:48 [facility] (Rec: 01/28/24 15:06 [facility] [id number]) Occupational Therapy Current Condition Current Condition Evaluation Date 01/28/24 Treatment Diagnosis S/P amputation of right toe and partial amp of 2nd metatarsal Diagnosis Onset Date 01/25/24 Weight Bearing Status Weight Bearing Status Non-Weight Bearing Allowed Weight Bearing Amount (enter % RLE NWB or #) (%) M3 OT- IP Subjective and Pain Start: 01/28/24 14:47 Freq: Status: Active Protocol: Document 01/29/24 14:56 [facility] (Rec: 01/29/24 15:03 [facility] [id number]) OT- Subjective Occupational Therapy Visit Type Type Treatment Note Visit Start Time 14:45 Visit Stop Time 14:53 Occupational Therapy Visit Comments Patient Comments Pt states just got to bed and just open to talk about equipment needs. Patient/Caregiver Goals To go home. OT Pain Assessment Pain When Pain Assessed At Rest Pain Present Pain Present Pain Reported M4 OT- IP ADL's Start: 01/28/24 14:47 Freq: Status: Active Protocol: Document 01/28/24 14:48 [facility] (Rec: 01/28/24 15:06 [facility] [id number]) OT [id number] Comments OT Self-Feeding Comments NO issues anticipated. OT ADL-Grooming General Evaluation Grooming Ability Standby Assistance Areas Needing Assistance Retrieving/Set-up of Grooming Items Comments OT Grooming Comments Able to do while in bed. OT ADL-Oral Care General Eval Oral Care Ability Independent OT ADL-Dressing Comments OT Dressing Comments Assist for all RLE management needs for dressing change. OT ADL-Toileting Comments OT Toileting Comments Pt having to use the urinal. OT ADL-Bathing Comments OT Bathing Comments not performed M5 OT- IP IADL's Start: 01/28/24 14:47 Freq: Status: Active Protocol: Document 01/28/24 14:48 [facility] (Rec: 01/28/24 15:06 [facility] [id number]) OT-Instrumental Activities of Daily Living Deficits IADL Deficits Identified Deficits Home Safety Awareness Awareness of Need for Assistance at Home Good Awareness Ability to Problem Solve Emergency Able to Problem Solve Situations Medication Management Medication Management No Deficits Identified Money Management Money Management No Deficits Identified Meal Preparation Meal Preparation Comments Pt will need assist. [employer] Comments Pt will need assist. M6 OT- IP Functional Cognition Start: 01/28/24 14:47 Freq: Status: Active Protocol: Document 01/29/24 14:56 [facility] (Rec: 01/29/24 15:03 [facility] [id number]) Cognitive Factors Limiting Selfcare Function Cognitive Ability Safety Awareness Underestimates Need for Assistance Cognitive Comments Cognitive Assessment Comments Pt is very insistent on his care and adamant that he will be fine at home. Pt states did get a wc. Also continues to recommend pt get a drop arm commode, LB dressing equipment , and assist. Pt states will just use the knee scooter and not open to being soon how to use it. Pt is a very high fall risk and would benefit from practice and educations, therefore if having to go home best to have home health. M7 OT- IP Mobility and Balance Start: 01/28/24 14:47 Freq: Status: Active Protocol: Document 01/28/24 14:48 [facility] (Rec: 01/28/24 15:06 [facility] [id number]) OT-Transfer Assessment Comments Mobility Comments Pt getting dressing change to right foot and able to get up earlier with PT. M8 OT- IP Objective Assessments Start: 01/28/24 14:47 Freq: Status: Active Protocol: Document 01/28/24 14:48 [facility] (Rec: 01/28/24 15:06 [facility] [id number]) OT Gross Range of Motion Upper Extremity Range of Motion Assessment Within Functional Limits OT Strength Upper Extremity Strength Assessment Within Functional Limits M9 OT- IP Assessment and Plan Start: 01/28/24 14:47 Freq: Status: Active Protocol: Document 01/29/24 14:56 [facility] (Rec: 01/29/24 15:03 [facility] [id number]) OT Summary Assessment and Plan Potential Rehabilitation Potential Good Analytic Complexity at Evaluation Moderate Summary OT Impairments Pain,Balance,Functional Mobility,Dressing,Toileting, Bathing,Toilet Transfers, Shower Transfers Progress Towards Goals Slow Progress due to Pain Assessment Summary Pt is very adamant of not going to skilled rehab or having home health to come and asisst with his needs. Pt status is NWB for RLE. Pt insistent that he will be fine and figure it out on his own. Pt is a high fall risk. Continue to suggested skilled rehab or if going home to have / assist and home health. Goals Grooming Goal Independent Dressing Goal Independent Toileting Goal Independent Bathing Goal Standby Assistance Toilet Transfer Goal Independent Shower Transfer Goal Standby Assistance Days to Meet Goals 20 Frequency of Treatment Other frequency 5x/week Treatment Plan OT Treatment Plan ADL Training,Functional Mobility,Patient/Family Education,Discharge Planning Discharge Recommendations OT Discharge Recommendations SNF Rehab
[2024-01-29] MEDS: TERAZOSIN 5 MG CAPSULE 10 MG PO (17:46)
[2024-01-29] MEDS: SENNOSIDES 8.6 MG TABLET 17.2 MG PO (21:56)
[2024-01-29] MEDS: levoFLOXacin 250 MG TABLET 750 MG PO (21:56)
[2024-01-30] VITALS: BP 170/72; PULSE 72; RESP 16; TEMP 36.8; O2SAT 95
[2024-01-30] MEDS: VANCOMYCIN 1,000 MG/200 ML PIGGYBACK 200 MG IV (01:36)
[2024-01-30] MEDS: OXYCODONE IR 5 MG TABLET PO ×2 (01:50→08:52)
[2024-01-30 04:00] VITALS: BP 172/71; PULSE 66; RESP 20; TEMP 36.4; O2SAT 95
[2024-01-30] MEDS: AMLODIPINE 5 MG TABLET 10 MG PO (06:41)
[2024-01-30] MEDS: PANTOPRAZOLE DR 20 MG TABLET PO (06:41)
[2024-01-30 08:00] VITALS: BP 161/64; PULSE 60; RESP 17; TEMP 36.9; O2SAT 94; O2SAT 95
[2024-01-30] MEDS: ENOXAPARIN 40 MG/0.4 ML SYRINGE SUBCUT (08:45)
[2024-01-30] MEDS: ASPIRIN 81 MG CHEW TAB PO (08:45)
[2024-01-30] MEDS: FINASTERIDE 5 MG TABLET PO (08:45)
--- NOTE | 2024-01-30 09:12 | DIET.CONS ---
Dietary Consultation Note Admission Date: 01/25/2024 16:50 Assessment: 83 y M admitted for diabetic foot ulcer s/p right 2nd toe and metatarsal amputation. RD screened for LOS. A1c 6.6% on 01/26/24. Glucose has been <180 during admission. EMR reviewed. Pt with avg recorded po intake >75%. DFM reviewed for meal composition. No nutritional intervention needed. Will continue to monitor PO intakes. Ht: 180.34 cm Wt: 92.079 kg BMI: 28.3 UBW: 93.44 kg on 12/22/23, 97.5 kg on 08/06/23 (-5.5% weight loss in 6 months, non-severe) Last BM: 01/30/24 (01/30/24 08:00) MNA: 14 Saw Score: 20 Diet: 01/28/24 Breakfast Carbohydrate Consistent Diet Diet Modifications: Carbohydrate level: Medium (3 CHO) Reflex DM orders: No Food Texture: Level 7 - Regular Liquid Consistency: Level 0 - Thin Nutrition Percent Meal Consumed 100% 01/30/24 08:00 Percent Meal Consumed 75% 01/29/24 18:00 Percent Meal Consumed 50% 01/29/24 09:04 Percent Meal Consumed 100% 01/28/24 13:33 Labs: RBC 4.07 X10^6/uL (4.5-5.9) L 01/28/24 04:14 Hgb 11.9 g/dL (13.5-17.5) L 01/28/24 04:14 Hct 35.5 % (41-53) L 01/28/24 04:14 Creatinine 0.93 mg/dL (0.66-1.25) 01/28/24 04:14 Hemoglobin A1c 6.6 % (4.0-6.0) H 01/26/24 05:50 Lactate 1.2 mmol/L (0.7-2.1) 01/25/24 12:08 Electronically Signed by: Marianela Ernandez 01/30/24 09:12 Clinical Dietitian [address] [address]
--- NOTE | 2024-01-30 09:53 | PT-IP ANOTE ---
Pt reports no needs from PT.
[2024-01-30] MEDS: SODIUM CHLORIDE 0.9% FLUSH 10 ML IV (10:05)
--- NOTE | 2024-01-30 11:39 | CM.DPC ---
DCP Continued: Reviewed EMR and team rounds for pt?s medical status. Pt medically cleared discharge today per hospitalist, will need IV ABOs (Daptomyocin, Q24H until 02/10/2024) via PICC line post-discharge. DCP spoke with Mala at [facility], relayed the above. [facility] requesting PICC placement documentation, treatment/DC summary, and following MD (Dr. Ke Meier) - DCP sent via secure email. DCP spoke with patient, introduced self and role. Pt was found in chair, awaiting to be discharged. DCP discussed home health with RN services to assist with PICC line management and wound care. Pt agreeable, did not state a preference for agency. DCP sent referral with clinicals, HH order and signed F2F to [facility] via secure email. Plan: Pt to discharge home, [facility] and [facility] to follow for continued care for IV antibiotics. CM Team will continue to follow for coordination of discharge plans. TOBIN Mayes
[2024-01-30 12:00] VITALS: BP 161/66; PULSE 60; RESP 19; TEMP 36.4; O2SAT 95; O2SAT 98
--- NOTE | 2024-01-30 12:59 | P.DS_ITS ---
History of Present Illness History of Present Illness Date Patient Seen: 01/30/24 Time Patient Seen: 07:55 Date of Onset of Symptoms: 01/27/24 Chief complaint: r foot infection/pain Narrative: Narrative: Roni Sage is an 82yo M with PMH of LBBB, 2nd degree block while on beta davida therapy, DM2, HTN, HLD, BPH, CAD and NANCY, prior amputation secondary to osteomyelitis with prior cultures growing stenotrophomonas (on his L foot) with chronic diabetic foot infection follows with [facility] podiatry. He complains of worsening pain over the last few days at home with worsening redness, swelling and pain. The redness has progressed has moved more proximally today over the top of his R foot. Denies fever, chills, nausea, vomiting. Pains are sharp and radiate up his leg. CT scan in the ER shows soft tissue gas, without a bonnie abscess, along with chronic findings. ER discussed with orthopedics, recommended MRI and will consult in the morning. Discharge Providers Provider Date of admission: 01/25/24 16:50 Discharge Date: 01/30/24 Primary care physician: Ke Meier MD Consults: 01/25/24 16:52 Consult to Orthopedic Surgery Routine Comment: Consulting Provider: Anoop Waldron Reason for consultation: diabetic foot ulcer Has provider been notified: Yes 01/27/24 20:35 Consult to Discharge Planning Routine Comment: Consult to Occupational Therapy Evaluate & Treat Comment: Physician Instructions: Evaluate and treat Consult to Physical Therapy Evaluate & Treat Comment: Physician Instructions: Evaluate and Treat 01/30/24 11:14 Consult to Home Health Routine Comment: RN Reason For Exam: PICC line, medication management Discharge provider: Bebo Simpson MD Summary Hospital Course Discharge Diagnosis: 1. 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 MRSA bacteremia due to 1. 3. Second-degree type 1 block, bradycardia 4. Diabetes mellitus, type 2 5. BPH 6. Hypertension Hospital Course: The patient was admitted and placed on IV antibiotics. Blood and wound cultures grew MRSA. Orthopedics was consulted and performed right 2nd toe and partial amputation of the right 2nd metatarsal on 01/27/2024. There was no evidence of endocarditis by echocardiography. Ongoing outpatient IV antibiotic therapy was recommended and arranged in conjunction with infectious disease consultation with daptomycin through 02/10/2024 via a right arm PICC line. He was feeling well and able to ambulate with nonweightbearing of the right lower extremity for 6 weeks, using a wheelchair and knee scooter. No other significant medical issues arose. Status at Discharge Cognitive/behavioral status at discharge: oriented Functional status at discharge: independent ambulation Overall status at discharge: patient is progressing back to baseline Time Spent with Patient Time spent: Greater than 30 minutes Exam Vital Signs (past 8 hours): - 01/30/24 08:00 01/30/24 08:00 01/30/24 12:00 Temperature 98.5 F 97.5 F L Pulse Rate 60 60 Respiratory Rate 17 19 Blood Pressure 161/64 H 161/66 H Pulse Oximetry 94 95 98 Oxygen Delivery Method Room Air Oxygen Delivery Method Room Air Oxygen Flow Rate 0 Narrative Exam Narrative: NAD, alert and oriented. Fluent speech. Lungs are clear, normal rate and effort. Heart is regular, no murmur gallop or rub. Abdomen is soft, non distended. Extremities are free of edema. Right foot is wrapped. Objective Imaging +: Radiologist's impression: 1. Right lower extremity CT 01/25/2024: Significant soft tissue swelling and soft tissue gas can be seen, without a bonnie drainable abscess. To the limits of CT, no bonnie bony lysis is seen to suggest osteomyelitis. There is significant chronic cystic degeneration seen involving the 1st tarsometatarsal joint. Chronic dislocations of the 2nd and 3rd metatarsophalangeal joints are seen. If there is strong suspicion for developing osteomyelitis, please consider a dedicated MRI without and with contrast for further evaluation (assuming that there is no contraindication to MRI). 2. Right foot MRI 01/25/2024: 1. Skin ulceration at the plantar aspect of the forefoot with a thin fluid- filled tract extending to the second metatarsophalangeal joint. No drainable abscess is seen. 2. Osseous edema and enhancement as well as abnormal T1-weighted signal are seen in the 2nd metatarsal head and distal shaft as well as the 2nd proximal phalangeal base, highly suspicious for osteomyelitis. Moderate 2nd metatarsophalangeal joint effusion with a small focus of gas. 3. Mild osseous edema adjacent to the 3rd metatarsophalangeal joint without abnormal T1-weighted signal is most likely reactive. 4. Dorsal dislocations of the 2nd 3rd metatarsophalangeal joints again seen. 5. Severe degenerative changes at the 1st tarsometatarsal joint with remodeling of the articular surfaces. Less prominent degenerative changes at the 2nd and 3rd tarsometatarsal joints. 6. Fatty infiltration and edema within foot musculature likely related to denervation changes versus myositis. 3. Echocardiogram 01/26/2024: The left ventricle is normal in size and wall thickness. Left ventricular ejection fraction is estimated to be 55 +/- 5%. The right ventricle is at the upper limits of normal in size. Visually RV function appears to be preserved. There is mild tricuspid regurgitation. The right ventricular systolic pressure is estimated to be at least 34 mmHg based on an estimated right atrial pressure of 3 mm Hg. There is mild to moderate pulmonic regurgitation. No obvious valvular vegetation seen however if clinical suspicion for endocarditis is high, consider ANTHONY. 4. Chest x-ray 01/29/2024: Tip of PICC projects to the area of low SVC. Labs 01/28/24 04:14 01/28/24 04:14 [facility] Medical History Type 2 diabetes mellitus with other specified complication PVCs (premature ventricular contractions) First degree AV block LBBB (left bundle branch block) Neuropathy Diabetic Charcot foot Hammertoe of left foot Diabetic foot infection Osteoarthritis of foot, left Fracture of sesamoid bone of foot, closed Foot pain, left Diabetes mellitus Coronary artery disease BPH (benign prostatic hyperplasia) Hypertension Hyperlipidemia Sleep apnea (~1999) Chronic cough (~2005) Allergies Foot pain (~2009) Ankle pain (~2014) Recurrent sinusitis (~1993) Cardiac arrhythmia Surgical History S/P foot surgery, left (06/04/23) Hx of foot surgery (09/19/22) Anesthesia History of appendectomy History of quadruple bypass (2010) Family History Father Cancer Social History household members: none Smoking Status: Former smoker alcohol intake: current eating out: 1-3 times/week Type(s) of exercise: other Discharge Plan Discharge Plan Patient Disposition: Home Provider Discharge Comment: Followup with [facility] within 14 days; IV Daptomycin through PICC line through 02/10/2024; Dr. Meier < 1 week; Infusion solutions to draw CMP, CBC, CPK 1 week, copy to Dr. Meier Discharge orders & Medications Prescriptions: New daptomycin 500 mg recon soln 737 mg IV Q24H Rx Instructions: administer over 30 mins Continued (DME) lancets [OneTouch Delica Lancets] 33 gauge misc See Rx Instructions .ROUTE .MEDSUPPLY Qty: 100 0RF Rx Instructions: As directed (DME) blood-glucose meter [Blood Glucose Monitoring] Kit See Rx Instructions .ROUTE .MEDSUPPLY Qty: 1 0RF Rx Instructions: As directed OneTouch Verio test strips Strip See Rx Instructions .ROUTE .COMPLEX Qty: 100 3RF Dose Instruction: USE DIRECTED DAILY Rx Instructions: USE DIRECTED DAILY losartan-hydrochlorothiazide 100-25 mg tablet See Rx Instructions .ROUTE .COMPLEX Qty: 90 3RF Dose Instruction: TAKE 1 TABLET DAILY Rx Instructions: TAKE 1 TABLET DAILY Ozempic 0.25 mg or 0.5 mg (2 mg/3 mL) pen injector 0.5 mg SUBCUT QWEEK Qty: 3 1RF Complete Multivitamin Tablet 1 tab PO DAILY Qty: 90 3RF Parking Permit... 1 unit Not Applicable .continuous Qty: 1 0RF aspirin 81 mg Tablet 81 mg PO DAILY felodipine 5 mg tablet extended release 24 hr 5 mg PO DAILY Rx Instructions: TAKE 1 TABLET DAILY omeprazole 20 mg capsule,delayed release(DR/EC) 20 mg PO DAILY Rx Instructions: TAKE 1 CAPSULE DAILY terazosin 10 mg capsule 10 mg PO QPM Rx Instructions: TAKE 1 CAPSULE AT BEDTIME finasteride 5 mg tablet 5 mg PO DAILY Rx Instructions: TAKE 1 TABLET DAILY rosuvastatin 20 mg tablet 20 mg PO DAILY Rx Instructions: TAKE 1 TABLET DAILY Medication counseling provided by Pharmacist: Yes Follow up/Referrals: Ke Meier MD [Primary Care Provider] - Anoop Waldron MD [Physician] - (Follow up w/ PA in ortho clinic in 2-3 weeks for wound check.) Diet/Activity/Treatments Activity: Nonweightbearing to RLE x 6 weeks. Skin/Wound/Dressing Care Dressing: If dressing becomes wet or dirty, remove and replace with clean, dry gauze. Visit Report/Discharge Packet Stand Alone Forms: Patient Portal/API Discharge Data Primary Care Provider: Ke Meier Quality MIPS - Admit I confirm the patient?s Advance Care Plan is present, Code status is documented, Surrogate decision maker is in patient?s record [If Yes, STOP here]: Yes MIPS - Meds 'Current medications' to include all prescriptions, [id number] products, herbals, cannabis/cannabidiol products, and vitamin/mineral/dietary (nutritional) supplements. I have utilized all available resources to obtain, update, or review the patient?s current medications. [If Yes, STOP here]: Yes MIPS - DC The patient has a history of heart transplant or Left Ventricular Assist Device (LVAD). If yes, STOP here.: No The patient has current or prior documentation of left ventricular ejection fraction (LVEF) less than or equal to 40%, or moderate or severely depressed left ventricular systolic function.: No A. The patient was prescribed or already taking an Angiotensin-Converting Enzyme (ANGELINA) Inhibitor, or Angiotensin Receptor Davida (ARB).: No B. The patient was prescribed or already taking a beta-davida. [If Yes to Both A & B, STOP here]: No Patient not prescribed/taking ANGELINA or ARB, no reason given.: No Patient not prescribed/taking beta-davida, no reason given.: No PROFEE Charge Codes Discharge inpatient/observation: [id number]
--- NOTE | 2024-01-30 13:46 | PC.NURSE ---
Pt denies dikscomfort. Right foot w/ dsg and brace CMS ++ ELSA PICC intact/patent. Received daptomycin prior to D/C Pt will D/C when ride arrives.
== END 2024-01-30 14:12 | disposition home health service (06) | DRG 617 ==
LOC: ED 15:48 → AC 16:51
PROVIDERS: Orthopaedic Surgery Adult Reconstructive Orthopaedic Surgery; Admitting Provider Internal Medicine; Emergency Provider Physician Assistant; PCP Family Medicine; Referring Provider Emergency Medicine; Visit Provider Internal Medicine
PROC: 0Y6M0ZB Detachment at Right Foot, Partial 2nd Ray, Open Approach (ICD-10-PCS; principal; 2024-01-27 16:00)
DX: E11.621 Type 2 diabetes mellitus with foot ulcer (principal); L97.419 Non-pressure chronic ulcer of right heel and midfoot with unspecified severity; M86.8X7 Other osteomyelitis, ankle and foot; I44.1 Atrioventricular block, second degree; R00.1 Bradycardia, unspecified; N40.0 Benign prostatic hyperplasia without lower urinary tract symptoms; I10 Essential (primary) hypertension; B95.62 Methicillin resistant Staphylococcus aureus infection as the cause of diseases classified elsewhere; E11.69 Type 2 diabetes mellitus with other specified complication; I25.10 Atherosclerotic heart disease of native coronary artery without angina pectoris; G47.33 Obstructive sleep apnea (adult) (pediatric); E78.5 Hyperlipidemia, unspecified; Z87.891 Personal history of nicotine dependence; Z79.85 Long-term (current) use of injectable non-insulin antidiabetic drugs
CPT/HCPCS: 36415; 36569; 73700; 73720; 80053; 80202; 82962; 83036; 83605; 84145; 85025; 85651; 86140; 87040; 87070; 87075; 87077; 87147; 87154; 87176; 87186; 87205; 93005; 93306; 96365; 96366; 96367; 96375; 97129; 97162; 97166; 97530; 99285; J0134; J0696; J0878; J1200; J1650; J1956; J2405

== ENCOUNTER → 2024-03-12 09:23 | Outpatient (CLI) | payer MEDICARE, SELFPAY ==
[2024-01-25 17:36] VITALS: BMI 28.3
== END ==
LOC: WC 09:23
PROVIDERS: PCP Family Medicine; Referring Provider Physician Assistant; Visit Provider Physician Assistant
DX: E11.621 Type 2 diabetes mellitus with foot ulcer (principal); L97.512 Non-pressure chronic ulcer of other part of right foot with fat layer exposed; L53.9 Erythematous condition, unspecified; R60.0 Localized edema; Z89.421 Acquired absence of other right toe(s); I10 Essential (primary) hypertension; I25.10 Atherosclerotic heart disease of native coronary artery without angina pectoris; E78.5 Hyperlipidemia, unspecified
CPT/HCPCS: 11042; 87070; 87075; 87077; 87147; 87186; 87205; 99204; 99214

== ENCOUNTER → 2024-03-23 08:15 | Outpatient (CLI) | payer MEDICARE, SELFPAY ==
[2024-01-25 17:36] VITALS: BMI 28.3
[2024-03-23 08:37] LABS: Add Manual Diff / Slide Review NO; Basophils Absolute Auto 0 /uL (0-100); Basophils Percent Auto 0.4 % (0-2); Eosinophils Absolute Auto 200 /uL (0-450); Eosinophils Percent Auto 2.7 % (2-4); Hematocrit 38.3 % (41-53); Hemoglobin 12.8 g/dL (13.5-17.5); Lymphocytes Absolute Auto 1900 /uL (1100-4500); Lymphocytes Percent Auto 30.8 % (25-40); Mean Corpuscular HGB Conc 33.5 % (30-36); Mean Corpuscular Hemoglobin 29.4 PG (26-34); Mean Corpuscular Volume 87.8 fL (80-100); Monocytes Absolute Auto 400 /uL (0-900); Monocytes Percent Auto 6.6 % (3-14); Neutrophils Absolute Auto 3600 /uL (1500-7000); Neutrophils Percent Auto 59.5 % (50-75); Platelet Count 227 X10^3/uL (150-400); Red Blood Cell Count 4.36 X10^6/uL (4.5-5.9); Red Cell Distribution Width 15.3 % (11.6-14.8)
[2024-03-23 09:04] LABS: Alanine Aminotransferase 34 IU/L (<50); Albumin 3.2 g/dL (3.5-5.0); Alkaline Phosphatase 66 U/L (38-126); Aspartate Aminotransferase 28 IU/L (17-59); BUN Creatinine Ratio 26.4 (6-22); Bilirubin Total 0.8 mg/dL (0.2-1.3); Blood Urea Nitrogen 29 mg/dL (9-20); Calcium 8.7 mg/dL (8.4-10.2); Carbon Dioxide 27 mmol/L (22-32); Chloride 104 mmol/L (98-107); Estimated Glomerular Filt Rate > 60 mL/min (>60); Globulin 3.1 g/dL (1.7-4.1); Glucose 123 mg/dL (80-110); HEMOLYSIS < 15 (0-50); Potassium 3.9 mmol/L (3.4-5.1); Sodium 135 mmol/L (137-145); Total Protein 6.3 g/dL (6.3-8.2)
[2024-03-23 09:09] LABS: Hemoglobin A1C% w Est Avg Glu 5.9 % (4.0-6.0)
== END ==
LOC: LAB 08:16
PROVIDERS: Physician Assistant; PCP Family Medicine; Referring Provider Family Medicine; Visit Provider Family Medicine
DX: R78.81 Bacteremia (principal); B95.62 Methicillin resistant Staphylococcus aureus infection as the cause of diseases classified elsewhere; Z95.1 Presence of aortocoronary bypass graft; E11.9 Type 2 diabetes mellitus without complications; I25.10 Atherosclerotic heart disease of native coronary artery without angina pectoris; I10 Essential (primary) hypertension; E78.5 Hyperlipidemia, unspecified
CPT/HCPCS: 36415; 80053; 83036; 85025

== ENCOUNTER → 2024-03-26 10:49 | Outpatient (CLI) | payer MEDICARE, SELFPAY ==
[2024-01-25 17:36] VITALS: BMI 28.3
== END ==
PROVIDERS: PCP Family Medicine; Referring Provider Physician Assistant; Visit Provider Physician Assistant
DX: E11.621 Type 2 diabetes mellitus with foot ulcer (principal); L97.512 Non-pressure chronic ulcer of other part of right foot with fat layer exposed; L84 Corns and callosities; R60.0 Localized edema; R23.4 Changes in skin texture
CPT/HCPCS: 11042; 99214

== ENCOUNTER → 2024-04-02 13:10 | Outpatient (CLI) | payer MEDICARE, SELFPAY ==
[2024-01-25 17:36] VITALS: BMI 28.3
== END ==
PROVIDERS: PCP Family Medicine; Referring Provider Family Medicine; Visit Provider Physician Assistant
DX: E11.621 Type 2 diabetes mellitus with foot ulcer (principal); L97.512 Non-pressure chronic ulcer of other part of right foot with fat layer exposed; L84 Corns and callosities; R60.0 Localized edema; R23.4 Changes in skin texture; I10 Essential (primary) hypertension; E78.5 Hyperlipidemia, unspecified
CPT/HCPCS: 11042; 99214

== ENCOUNTER → 2024-04-02 14:24 | Outpatient (CLI) | payer MEDICARE, SELFPAY ==
[2024-01-25 17:36] VITALS: BMI 28.3
--- NOTE | 2024-04-02 14:26 | DI.RAD.S_ITS ---
PROCEDURE: XR FOOT RT MIN 3V INDICATIONS: right foot 5th metatarsal toe TECHNIQUE: 3 views of the foot were acquired. COMPARISON: [facility] [place], CR, XR FOOT 3+ VIEWS RIGHT, 03/05/2024, 12:06. [facility], CR, XR FOOT LT MIN 3V, 06/08/2020, 11:13. FINDINGS: Bones: Subacute appearing oblique fracture involving 1st metatarsal base is again seen. Prior amputation of 2nd toe at the level of 2nd metatarsal neck is also noted. Increased sclerosis involving lateral aspect of 5th metatarsal base is seen. No acute fracture or dislocation. No gross bony erosive changes. No suspicious bony lesions. Soft tissues: No tibiotalar joint effusion. Achilles tendon appears normal. IMPRESSION: No acute right foot fracture or dislocation. Possible healing nondisplaced fracture involving lateral aspect of 5th metatarsal base with increased sclerosis. Postsurgical changes in 2nd toe. Subacute appearing oblique fracture through 1st metatarsal base. No radiographic evidence of osteomyelitis. Dictated by: Rito Abraham M.D. on 04/02/2024 at 17:18 Approved by: Rito Abraham M.D. on 04/02/2024 at 17:23
== END ==
PROVIDERS: PCP Family Medicine; Referring Provider Physician Assistant; Visit Provider Physician Assistant
DX: S92.311A Displaced fracture of first metatarsal bone, right foot, initial encounter for closed fracture (principal); E11.628 Type 2 diabetes mellitus with other skin complications; L08.9 Local infection of the skin and subcutaneous tissue, unspecified; Z89.421 Acquired absence of other right toe(s)
CPT/HCPCS: 73630

== ENCOUNTER → 2024-04-09 13:38 | Outpatient (CLI) | payer MEDICARE, SELFPAY ==
[2024-01-25 17:36] VITALS: BMI 28.3
== END ==
PROVIDERS: PCP Family Medicine; Referring Provider Physician Assistant; Visit Provider Physician Assistant
DX: E11.621 Type 2 diabetes mellitus with foot ulcer (principal); L97.512 Non-pressure chronic ulcer of other part of right foot with fat layer exposed; L84 Corns and callosities; R60.0 Localized edema; R23.4 Changes in skin texture
CPT/HCPCS: 11042; 99214

== ENCOUNTER → 2024-04-16 10:27 | Outpatient (CLI) | payer MEDICARE, SELFPAY ==
[2024-01-25 17:36] VITALS: BMI 28.3
== END ==
PROVIDERS: PCP Family Medicine; Referring Provider Physician Assistant; Visit Provider Physician Assistant
DX: E11.621 Type 2 diabetes mellitus with foot ulcer (principal); L97.512 Non-pressure chronic ulcer of other part of right foot with fat layer exposed; L84 Corns and callosities; R60.0 Localized edema; B95.62 Methicillin resistant Staphylococcus aureus infection as the cause of diseases classified elsewhere; Z91.199 Patient's noncompliance with other medical treatment and regimen due to unspecified reason; Z79.2 Long term (current) use of antibiotics
CPT/HCPCS: 11042; 87070; 87077; 87147; 87186; 87205; 99213; 99214

== ENCOUNTER → 2024-04-21 12:56 | Outpatient (CLI) | payer MEDICARE, SELFPAY ==
[2024-01-25 17:36] VITALS: BMI 28.3
--- NOTE | 2024-04-21 13:27 | DI.MRI.S_ITS ---
PROCEDURE: MR FOOT RT WO/W CON INDICATIONS: Ulcer of right lateral 5th methead TECHNIQUE: Noncontrast coronal T1 spin echo and STIR, sagittal T1 spin echo with fat saturation and STIR, axial T1 spin echo and T2 fast spin echo with fat saturation. After the administration of contrast, axial/sagittal/coronal T1 spin echo with fat saturation through the right foot. COMPARISON: [facility], MR, MR FOOT RT WO/W CON, 01/26/2024, 14:16. FINDINGS: Image quality: Excellent. Bones: Patient is status post amputation of 2nd toe at the level of 2nd metatarsal neck.. Extensive marrow edema is seen throughout 2nd metatarsal stump with extensive distal bony erosive changes. There is also edema involving medial, middle and low lateral cuneiform is as well as 1st and 3rd metatarsal shaft. Subtle erosive changes also noted involving 1st metatarsal base and distal portion of medial cuneiform. After IV contrast infusion, contrast enhancement in the above-mentioned area of edema is seen. There is also subtle edema involving lateral aspect of 5th metatarsal head without gross bony erosive changes. Contrast enhancement is also noted in this area. No acute fracture or dislocation. Medial subluxation at 3rd and 4th MTP joints are seen. Osteoarthritic changes are noted throughout midfoot and forefoot. Soft tissues: There is marked soft tissue swelling surrounding 2nd toe stump as well as 1st through 3rd TMT joints. No discrete drainable peripherally enhancing fluid collection is seen. Shallow ulceration involving lateral aspect of 5th metatarsal neck/distal shaft is also seen with soft tissue edema and swelling over dorsal and lateral aspect of midfoot and forefoot. No discrete drainable abscess collection. Significant edema throughout visualized plantar foot muscle is seen concerning for myositis. No drainable intramuscular fluid collection. Extensor and flexor tendons are grossly intact. IMPRESSION: 1. Prior amputation of 2nd toe. Extensive cellulitis involving 2nd toe stump extending to involve soft tissue around 1st through 3rd TMT joints. No discrete drainable abscess collection. Ulceration over lateral aspect of 5th toe with significant cellulitis over dorsal and lateral aspect of midfoot and forefoot. No discrete drainable abscess collection. 2. Suggestion of osteomyelitis involving 2nd metatarsal stump, 1st and 3rd metatarsal bones and medial, middle and lateral cuneiforms and septic arthritis involving 1st through 3rd TMT joints. 3. Suggestion of early osteomyelitis involving lateral aspect of 5th metatarsal head. Dictated by: Rito Abraham M.D. on 04/21/2024 at 14:20 Approved by: Rito Abraham M.D. on 04/21/2024 at 14:28
== END ==
PROVIDERS: PCP Family Medicine; Referring Provider Physician Assistant; Visit Provider Physician Assistant
DX: L97.509 Non-pressure chronic ulcer of other part of unspecified foot with unspecified severity; E11.621 Type 2 diabetes mellitus with foot ulcer; L03.115 Cellulitis of right lower limb; Z89.421 Acquired absence of other right toe(s)
CPT/HCPCS: 73720; A9579

== ENCOUNTER → 2024-04-30 10:05 | Outpatient (CLI) | payer MEDICARE, SELFPAY ==
[2024-01-25 17:36] VITALS: BMI 28.3
== END ==
PROVIDERS: PCP Family Medicine; Referring Provider Physician Assistant; Visit Provider Physician Assistant
DX: E11.621 Type 2 diabetes mellitus with foot ulcer (principal); M86.9 Osteomyelitis, unspecified; L97.512 Non-pressure chronic ulcer of other part of right foot with fat layer exposed; L84 Corns and callosities; R60.0 Localized edema
CPT/HCPCS: 11042; 99214

== ENCOUNTER → 2024-05-14 10:39 | Outpatient (CLI) | payer MEDICARE, SELFPAY ==
[2024-01-25 17:36] VITALS: BMI 28.3
== END ==
LOC: WC 10:39
PROVIDERS: PCP Family Medicine; Referring Provider Physician Assistant; Visit Provider Physician Assistant
DX: E11.621 Type 2 diabetes mellitus with foot ulcer (principal); L97.512 Non-pressure chronic ulcer of other part of right foot with fat layer exposed; L84 Corns and callosities; R60.0 Localized edema
CPT/HCPCS: 11042; 99214

== ENCOUNTER → 2024-05-28 13:10 | Outpatient (CLI) | payer MEDICARE, SELFPAY ==
[2024-01-25 17:36] VITALS: BMI 28.3
--- NOTE | 2024-05-28 | OV.WND_ITS ---
PROGRESS NOTE DETAILS PATIENT NAME: QUINCY BOYD PATIENT NUMBER: [id number] CLINICIAN: VILMA SCHREIBER R.N. PATIENT DATE OF : 1940 PHYSICIAN / TIGHT ROPE WALKER: STEPHAN GLEZ PA-C PATIENT SUBJECTIVE CHIEF COMPLAINT THIS INFORMATION WAS OBTAINED FROM THE PATIENT. WOUND ON MY FOOT. GENERAL NOTES DIABETIC ULCER ON RIGHT FOOT. ALLERGIES PENICILLIN, ERYTHROMYCIN BASE, DOXYCYCLINE (REACTION: NAUSEA/VOMITING) HPI THIS INFORMATION WAS OBTAINED FROM THE PATIENT. LOCATION: R 5TH MET HEAD DURATION: DIABETIC CONTEXT: 02/10/24 83 YEAR OLD MALE WITH PMH OF CONTROLLED DMT2, NEUROPATHY, OA, CAD, BPH, HTN, HLD HERE TO FOLLOW UP ON WOUND TO LATERAL RIGHT 5TH MET HEAD. THE PATIENT RECENTLY UNDERWENT SURGICAL AMPUTATION OF THE RIGHT SECOND TOE AND PARTIAL METATARSAL SECONDARY TO OSTEOMYELITIS. HE SUBSEQUENTLY DEVELOPED AN ULCERATION TO THE LATERAL 5TH METATARSAL HEAD. HE HAD A RECENT CULTURE WITH MRSA AND IS CURRENTLY RECEIVING IV ANTIBIOTICS UNDER THE CARE OF ID. HE HAD AN XRAY 04/02/24 SHOWING HEALING NONDISPLACED FRACTURE INVOLVING LATERAL ASPECT OF 5TH METATARSAL BASE AND A SUBACUTE OBLIQUE FRACTURE THROUGH 1ST METATARSAL BASE. PATIENT DENIES ANY INJURY OR PAIN TO HIS FOOT. HE HAS NOT BEEN HAVING DIFFICULTY WALKING ON HIS FOOT, HE DOES GET SOME PAIN TO THE ARCHES. PATIENT IS ADAMANT THAT HE DOES NOT WANT TO WEAR A FOOT BALL DRESSING BECAUSE HE CANNOT GET AROUND OR DRIVE WITH IT IN PLACE. HE ALSO DECLINES TO USE THE FELT PAD AT THIS TIME. HE SAW DR ABREU EARLIER TODAY AND IS PLANNING FOR A SURGERY WITH DATE TBD. ON TODAY'S VISIT, WOUND IS STALLED WITH UNDERMINING. HE DENIES FEVER, CHILLS OR CHANGES TO UNDERLYING HEALTH. HE IS WEARING A DEFENDER BOOT TODAY. LABS: 04/21/24: MRI SUGGESTION OF OSTEOMYELITIS OF 1ST, 2ND AND 3RD METATASRSAL AND MEDIAL, MIDDLE AND LATERAL CUNEIFORM AND SEPTIC ARTHRITIS INVOLVING 1ST THROUGH 3RD TMT JOINTS, POSSIBLE EARLY OSTEOARTHRITIS OF LATERAL 5TH MET HEAD, EXTENSIVE CELLULITIS OF 2ND TOE STUMP, 1ST THROUGH 3RD TMT. NO ABSCESS. 04/02/24: XRAY POSSIBLE HEALING NONDISPLACED FRACTURE INVOLVING LATERAL ASPECT OF 5TH METATARSAL BASE WITH INCREASED SCLEROSIS. POSTSURGICAL CHANGES IN 2ND TOE. SUBACUTE APPEARING OBLIQUE FRACTURE THROUGH 1ST METATARSAL BASE. NO RADIOGRAPHIC EVIDENCE OF OSTEOMYELITIS. 03/12/24: CULTURE MRSA, RX LINEZOLID ICRO RIGHT 1.21, 1.22 LEFT, MONOPHASIC ON RIGHT 01/26/24: A1C 6.6 MEDICAL HISTORY QUINCY BOYD [id number] 1940 THIS INFORMATION WAS OBTAINED FROM THE PATIENT. PATIENT HAS A MEDICAL HISTORY OF: ARTHRITIS CARDIOVASCULAR DISEASE CORONARY ARTERY DISEASE (CAD) SLEEP APNEA TYPE II DIABETES ATRIAL FIBRILLATION ADDITIONAL INFORMATION DOES PATIENT HAVE A HISTORY OF CANCER? YES? COMPLETE ALL QUESTIONS.: NO SURGICAL HISTORY THIS INFORMATION WAS OBTAINED FROM THE PATIENT. PATIENT HAS A SURGICAL HISTORY OF: APPENDECTOMY- CORONARY ARTERY BYPASS GRAFT (CABG)- ARTHROSCOPY, LEFT KNEE- ARTHROSCOPY, RIGHT KNEE WITH PARTIAL MEDIAL MENISCECTOMY- TOE AMPUTATION, RIGHT 2ND TOE- PARTIAL AMPUTATION OF LEFT TOES- OBJECTIVE VITALS HEIGHT/LENGTH: 71 IN (180.34 CM), WEIGHT: 203.9 LBS (92.68 KGS), BMI: 28.4, TEMPERATURE: 98.6 ?F (37 ?C), PULSE: 71 BPM, RESPIRATORY RATE: 16 BREATHS/MIN, PULSE OXIMETRY: 98 %. GENERAL NOTES CBG PER PT: 110 PHYSICAL EXAM CONSTITUTIONAL: GENERALIZED WEAKNESS. IN NO APPARENT DISTRESS. GOOD ATTENTION TO HYGIENE AND BODY HABITS. ALERT AND ORIENTED X 3. WELL NOURISHED. VITAL SIGNS REVIEWED AND NOTED. BLOOD PRESSURE NORMAL. PULSE RATE AND RHYTHM REGULAR. AFEBRILE. WEIGHT WNL. WELL DEVELOPED, WELL NOURISHED, AND IN NO ACUTE DISTRESS. ALERT AND ORIENTED X3. AMBULATES AND IS ABLE TO CHANGE POSITION WITHOUT ASSISTANCE. ALERT AND ORIENTED X 3. RESPIRATORY: EVEN RESPIRATIONS WITHOUT USE OF ACCESSORY MUSCLES. NO INTERCOASTAL RETRACTIONS NOTED. EVEN AND NON LABORED RESPIRATION. CARDIOVASCULAR: SEE LOWER EXTREMITY ASSESSMENT WHEN APPLICABLE. THERE IS NO PERIPHERAL EDEMA, CYANOSIS OR PALLOR. EXTREMITIES ARE WARM AND WELL PERFUSED. CAPILLARY REFILL IS LESS THAN 2 SECONDS. INTEGUMENTARY (HAIR, SKIN): SEE WOUND DESCRIPTION. NEUROLOGICAL: DECREASED LOWER EXTREMITY SENSATION. PSYCHIATRIC: ORIENTATION TO TIME, PLACE AND PERSON: NORMAL AFFECT WITH NORMAL THOUGHT PATTERN. MOOD AND AFFECT: NORMAL AFFECT WITH NORMAL THOUGHT PATTERN. WOUND ASSESSMENT(S) QUINCY BOYD [id number] 1940 WOUND #1 RIGHT, LATERAL METATARSAL HEAD FIFTH IS A CHRONIC HORN GRADE 3 DIABETIC ULCER ACQUIRED ON 02/10/2024 AND HAS RECEIVED A STATUS OF NOT HEALED. INITIAL WOUND ENCOUNTER MEASUREMENTS ARE 0.8CM LENGTH X 0.4CM WIDTH X 0.3 CM DEPTH, WITH AN AREA OF 0.32 SQ CM AND A VOLUME OF 0.096 CUBIC CM.INITIAL WOUND ENCOUNTER PREVIOUS MEASUREMENTS FROM 05/14/2024 ARE 0.2CM LENGTH X 0.3CM WIDTH X 0.2CM DEPTH, WITH AN AREA OF 0.06 SQ CM AND A VOLUME OF 0.012 CUBIC CM. BONE AND ADIPOSE ARE EXPOSED. NO TUNNELING HAS BEEN NOTED. NO SINUS TRACT HAS BEEN NOTED. UNDERMINING HAS BEEN NOTED AT 12:00 AND ENDS AT 12:00 WITH A MAXIMUM DISTANCE OF 0.4CM. THERE IS A MODERATE AMOUNT OF SEROSANGUINEOUS DRAINAGE NOTED WHICH HAS NO ODOR. THE PATIENT REPORTS A WOUND PAIN OF LEVEL 0/10. THE WOUND MARGIN IS ROLLED WOUND BED HAS NO, GRANULATION, YES SLOUGH, NO ESCHAR, NO EPITHELIALIZATION. THE PERIWOUND SKIN EXHIBITED EDEMA, CALLUS AND MACERATION. THE PERIWOUND SKIN DID NOT EXHIBIT ERYTHEMA. THE PERIWOUND SKIN WAS MOIST. THE PERIWOUND SKIN WAS NOT DRY/SCALY. THE TEMPERATURE OF THE PERIWOUND SKIN IS WNL. PERIWOUND SKIN DOES NOT EXHIBIT SIGNS OR SYMPTOMS OF INFECTION. LOCAL PULSE IS DOPPLER. GENERAL NOTES PROBES TO BONE. ADDITIONAL INFORMATION OTHER DEVITALIZED TISSUE PRESENT: BIOFILM CIRO/VASCULAR COMPLETED?: 03/12/24 RESULTS?: R 1.21, L 1.22 ASSESSMENT ACTIVE PROBLEMS ICD-10 (ENCOUNTER DIAGNOSIS) E11.621 - TYPE 2 DIABETES MELLITUS WITH FOOT ULCER (ENCOUNTER DIAGNOSIS) L97.519 - NON-PRESSURE CHRONIC ULCER OF OTHER PART OF RIGHT FOOT WITH UNSPECIFIED SEVERITY (ENCOUNTER DIAGNOSIS) Z22.322 - CARRIER OR SUSPECTED CARRIER OF METHICILLIN RESISTANT STAPHYLOCOCCUS AUREUS (ENCOUNTER DIAGNOSIS) S92.314D - NONDISPLACED FRACTURE OF FIRST METATARSAL BONE, RIGHT FOOT, SUBSEQUENT ENCOUNTER FOR FRACTURE WITH ROUTINE HEALING (ENCOUNTER DIAGNOSIS) M86.9 - OSTEOMYELITIS, UNSPECIFIED PROCEDURES WOUND #1 WOUND #1 (DIABETIC ULCER) IS LOCATED ON THE RIGHT, LATERAL METATARSAL HEAD FIFTH. A SKIN/SUBCUTANEOUS TISSUE LEVEL SURGICAL DEBRIDEMENT WITH A TOTAL AREA DEBRIDED OF 0.32 SQ CM. WAS PERFORMED BY STEPHAN GLEZ PA-C. SUBCUTANEOUS WAS REMOVED ALONG WITH DEVITALIZED TISSUE: BIOFILM, EXUDATE AND SLOUGH. THE FOLLOWING INSTRUMENT(S) WERE USED: CURETTE. NO ANESTHETIC WAS REQUIRED DUE TO LOSS OF SENSATION. A TIME OUT WAS CONDUCTED PRIOR TO THE START OF THE PROCEDURE. A MINIMAL AMOUNT OF BLEEDING WAS CONTROLLED WITH PRESSURE. THE PROCEDURE WAS TOLERATED WELL WITH A PAIN LEVEL OF 0 THROUGHOUT AND A PAIN LEVEL OF 0 FOLLOWING THE PROCEDURE. POST DEBRIDEMENT MEASUREMENTS: 0.8CM LENGTH X 0.4CM WIDTH X 0.4CM DEPTH; WITH AN AREA OF 0.32 SQ CM AND A VOLUME OF 0.128 CUBIC CM. ADDITIONAL INFORMATION MUSCLE FASCIA OR BONE REMOVED AND SENT TO PATHOLOGY?: NO SMITH QUINCY BOYD [id number] 1940 WOUND ORDERS: WOUND #1 RIGHT, LATERAL METATARSAL HEAD BANQUET ATTENDANT HYGIENE HAND HYGIENE - WASH HANDS BEFORE AND AFTER WOUND CARE. CALL THE WOUND CENTER AT [phone] IF YOU HAVE SIGNS OR SYMPTOMS OF INFECTION, FEVER CHILLS OR SHAKES, INCREASED DRAINAGE, INCREASED ODOR OR UNUSUAL REDNESS. AFTER WOUND CENTER HOURS PLEASE NOTIFY YOUR PCP OR GO TO THE EMERGENCY ROOM. CLEANSER CLEANSE WOUND WITH NORMAL SALINE CLEANSE WOUND WITH HYPOCHLOROUS ACID (VASHE OR SIMILAR) THEN APPLY HYPOCHLOROUS ACID SOAKED 4X4 GAUZE TO WOUND BED FOR 5-10 MINUTES AFTER WOUND ASSESSMENT COMPLETED. - HOME HEALTH- PLEASE ORDER VASHE FOR USE WITH EACH DRESSING CHANGE. PROCEDURE / ANESTHETIC 5% TOPICAL LIDOCAINE TO WOUND BED PRIOR TO PROCEDURE, IN CLINIC ONLY. DRESSING ORDERS APPLY DRESSING(S) AND SECURE WITH: - IODOSORB FILLING WOUND, FILL UNDERMINING WELL. SILICONE BORDER FOAM. LAMBS WOOL BETWEEN TOES TO WICK MOISTURE. DRESSING CHANGE FREQUENCY CHANGE DRESSING EVERY OTHER DAY. ADDITIONAL ORDERS: OFF-LOADING / PRESSURE RELIEF USE/WEAR WHEN WALKING: - FELT ADHESIVE SURROUNDING WOUND. CUSTOM DIABETIC SHOES/INSERTS. DIETARY TAKE VITAMIN C 1000MG BY MOUTH DAILY. TAKE ZINC 25MG BY MOUTH DAILY. FOLLOW A DIABETIC DIET. INCREASE THE PROTEIN IN YOUR DIET. HOME HEALTH HOME HEALTH CARE: IF YOU HAVE ANY QUESTIONS OR CONCERNS PLEASE CONTACT THE WOUND CENTER. - [facility] HOME [facility]ALTH- PLEASE SEE PATIENT EVERY FRIDAY, FRIDAY AND FRIDAY UNTIL PATIENT RETURNS TO CLINIC. FOLLOW-UP APPOINTMENTS RETURN APPOINTMENT 2 WEEKS OTHER ORDERS: - PLEASE CALL TO SCHEDULE YOUR ARTERIAL ULTRASOUND: [phone]. PLEASE CONTINUE TO FOLLOW-UP WITH DR. ABREU FOR SURGERY. SCRIBING ATTESTATION I ATTEST, THE NURSE, THAT I SCRIBED THESE ORDERS FOR THE WOUND CARE PROVIDER. PROVIDER REVIEW AND ATTESTATION: REVIEWED HOSPITAL RECORDS. DISCUSSED THE PLAN OF CARE @ BEDSIDE WITH - PATIENT I AGREE AND ATTEST TO THE ABOVE INFORMATION PROVIDED FROM OTHER LICENSED PROFESSIONALS. PLAN OF CARE: 01. ENSURE/ESTABLISH OPTIMAL BLOOD FLOW : - COMPLETE LOWER EXTREMITY ASSESSMENT STATUS: CONTINUED DATE: 04/09/2024 - PERFORM NON-INVASIVE VASCULAR TESTING (I.E. CIRO) AND DOCUMENT FINDINGS. CONSIDER REPEATING WHEN WOUND HEALING <40% AFTER 30 DAYS OF WOUND CARE. STATUS: COMPLETED DATE: 03/12/2024 02. ASSESS FOR/TREAT INFECTION : - EVALUATE FOR SIGNS AND SYMPTOMS OF INFECTION AND DOCUMENT FINDINGS. STATUS: CONTINUED DATE: 04/09/2024 - OBTAIN CULTURE AND SENSITIVITY (CANDS) OR TISSUE CULTURE WHEN INFECTION IS SUSPECTED. (NOTE:) CONSIDER REPEATING WHEN WOUND HEALING <40% AFTER 30 DAYS OF WOUND CARE. STATUS: COMPLETED DATE: 03/12/2024 03. DEBRIDE WEEKLY OR MORE OFTEN PRN : - EVALUATE PATIENT IN CENTER WEEKLY TO ASSESS WOUND BED AND MARGINS FOR NEED FOR DEBRIDEMENT. QUINCY BOYD [id number] 1940 STATUS: CONTINUED DATE: 04/09/2024 - DEBRIDEMENT BY ANY METHOD TO REMOVE DEVITALIZED/NECROTIC TISSUE TO PROMOTE HEALING AND PREVENT FURTHER COMPLICATIONS. GOAL IS TO STIMULATE AND/OR MAINTAIN ACUTE PHASE OF WOUND HEALING BY REDUCING BACTERIAL BURDEN AND DEVITALIZED/NON-VIABLE TISSUE. STATUS: CONTINUED DATE: 04/09/2024 04. OPTIMIZE GLUCOSE CONTROL AND NUTRITION : - ORDER/REVIEW PERTINENT LABS TO EVALUATE RENAL FUNCTION, GLUCOSE CONTROL, AND NUTRITIONAL STATUS. STATUS: CONTINUED DATE: 04/09/2024 - COMPLETE A NUTRITION RISK ASSESSMENT. STATUS: COMPLETED DATE: 03/12/2024 05. OFFLOADING PLAN : - EVALUATE PLAN FOR OFFLOADING STATUS: CONTINUED DATE: 04/09/2024 - ADVISE PATIENT TO OFFLOAD THE FOOT ULCER. (I.E. HALF SHOE, SURGICAL SHOE, INSERT, CUSTOM SHOE, FELT AND FOAM, CAM WALKER, MULTIPODUS SPLINT, TOTAL CONTACT CAST, BI-VALVE CAST, POSTERIOR SPLINT). STATUS: CONTINUED DATE: 04/09/2024 06. OPTIMIZE HOST FACTORS: - ASSESS AND REVIEW PATIENT HISTORY FOR WOUND ETIOLOGY, CO-MORBID CONDITIONS, MEDICATION REGIME, AND SMOKING HISTORY. STATUS: CONTINUED DATE: 04/09/2024 07. DRESSING SELECTION : - CHOOSE TOPICAL TREATMENTS AND/OR DRESSING BASED ON WOUND TYPE AND APPEARANCE, PERIWOUND SKIN CONDITION, WOUND SIZE AND DEPTH, ANATOMIC LOCATION, VOLUME OF EXUDATE, EDEMA IN THE LOWER EXTREMITIES, AND RISK OR PRESENCE OF INFECTION. STATUS: CONTINUED DATE: 04/09/2024 08. ADVANCED MODALITIES : - SET TREATMENT GOALS ACCORDING TO PATIENT AND/OR CAREGIVER?S ABILITY/ COMPLIANCE. STATUS: CONTINUED DATE: 04/09/2024 - RE-EVALUATE PLAN OF CARE IF NO EVIDENCE OF HEALING (40% IN 4 WEEKS). STATUS: CONTINUED DATE: 04/09/2024 09. FALL PREVENTION : - REVIEWED, NOT APPLICABLE 10. PAIN MANAGEMENT : - COMPLETE PAIN ASSESSMENT STATUS: COMPLETED DATE: 03/12/2024 11. MEASURABLE GOALS FOR WOUND HEALING AND/OR HYPERBARIC OXYGEN THERAPY : - IMPLEMENT PROTOCOLS TO PROMOTE HEALING AND IMPEDE FURTHER INJURY STATUS: CONTINUED DATE: 04/09/2024 12. DURATION/FREQUENCY OF WOUND CARE VISITS : - 1X WEEKLY FOR 30 DAYS STATUS: CONTINUED DATE: 04/09/2024 PLAN REQUEST NOTES FROM ORTHO REMINDER TO SCHEDULE ARTERIAL US CONTINUE WITH OFF-LOADING, DRESSING WITH IODOSORB FILLING, SILICONE BORDER FOAM, LAMBS WOOL BETWEEN TOES AND FELT SURROUND PAD QUINCY BOYD [id number] 1940 ELECTRONIC SIGNATURE(S) SIGNED BY: DATE: STEPHAN GLEZ PA-C 05/31/2024 07:38:25 (PT) ENTERED BY: STEPHAN GLEZ PA-C ON 05/31/2024 07:38:10 (PT) QUINCY BOYD [id number] 1940
== END ==
PROVIDERS: PCP Family Medicine; Referring Provider Family Medicine; Visit Provider Physician Assistant
DX: E11.621 Type 2 diabetes mellitus with foot ulcer (principal); L97.516 Non-pressure chronic ulcer of other part of right foot with bone involvement without evidence of necrosis; R60.0 Localized edema; M86.9 Osteomyelitis, unspecified; E11.40 Type 2 diabetes mellitus with diabetic neuropathy, unspecified
CPT/HCPCS: 11042; 99213

== ENCOUNTER → 2024-06-04 08:32 | Outpatient (CLI) | payer MEDICARE, SELFPAY ==
[2024-01-25 17:36] VITALS: BMI 28.3
--- NOTE | 2024-06-04 08:32 | DI.US.S_ITS ---
PROCEDURE: US ARTERIAL DUPLEX LE RT INDICATIONS: non-healing ulcer right lateral 5th metatarsal head TECHNIQUE: Color and pulse Doppler interrogation was performed of the right lower extremity arterial system, with image documentation. COMPARISON: None. FINDINGS: Common femoral artery: 174 cm/sec, with biphasic flow. Deep femoral artery: 143 cm/sec, with biphasic flow. Proximal superficial femoral artery: 112 cm/sec, with biphasic flow. Mid superficial femoral artery: 99 cm/sec, with triphasic flow. Distal superficial femoral artery: 88 cm/sec, with triphasic flow. Popliteal artery: 122 cm/sec, with triphasic flow. Tibioperoneal trunk: 194.1 cm per 2nd, monophasic flow. Posterior tibial artery: 159 cm/sec, with monophasic flow. Anterior tibial artery/dorsalis pedis: 79 cm/sec, with monophasic flow. Collado-scale imaging description: Grayscale imaging suggests a hemodynamically significant distal popliteal stenosis. There are monophasic waveforms distal to this. Images suggest that there is distal small vessel stenotic disease. IMPRESSION: Findings suggesting probable hemodynamically significant infrageniculate popliteal artery stenosis. Below this level, there is monophasic waveform. There is also suggestion of probable distal small vessel disease. Dictated by: Nathan Morrison M.D. on 06/04/2024 at 14:37 Approved by: Nathan Morrison M.D. on 06/04/2024 at 14:40
== END ==
PROVIDERS: PCP Family Medicine; Referring Provider Physician Assistant; Visit Provider Physician Assistant
DX: E11.621 Type 2 diabetes mellitus with foot ulcer (principal); L97.519 Non-pressure chronic ulcer of other part of right foot with unspecified severity
CPT/HCPCS: 93926

== ENCOUNTER → 2024-06-11 09:10 | Outpatient (CLI) | payer MEDICARE, SELFPAY ==
[2024-01-25 17:36] VITALS: BMI 28.3
[2024-06-11 10:31] LABS: Hemoglobin A1C% w Est Avg Glu 5.5 % (4.0-6.0)
[2024-06-11 11:13] LABS: Alanine Aminotransferase 18 IU/L (<50); Albumin 4.2 g/dL (3.5-5.0); Albumin Globulin Ratio 1.5 (1.0-2.8); Alkaline Phosphatase 64 U/L (38-126); Aspartate Aminotransferase 21 IU/L (17-59); BUN Creatinine Ratio 29.5 (6-22); Blood Urea Nitrogen 31 mg/dL (9-20); Calcium 9.5 mg/dL (8.4-10.2); Carbon Dioxide 27 mmol/L (22-32); Chloride 103 mmol/L (98-107); Cholesterol 125 mg/dL (140-199); Estimated Glomerular Filt Rate > 60 mL/min (>60); Globulin 2.8 g/dL (1.7-4.1); Glucose 128 mg/dL (80-110); HDL Cholesterol 40 mg/dL (40-60); HEMOLYSIS < 15 (0-50); LDL Cholesterol Calculated 63 mg/dL (<100); Sodium 139 mmol/L (137-145); Triglycerides 108 mg/dL (35-150)
[2024-06-11 11:43] LABS: TSH w/ Reflex to FT4 3.86 uIU/mL (0.47-4.68)
[2024-06-11 11:44] LABS: Prostate Specific Antigen Scrn 0.408 ng/mL (0.1-4.0)
== END ==
PROVIDERS: PCP Family Medicine; Referring Provider Family Medicine; Visit Provider Family Medicine
DX: E11.69 Type 2 diabetes mellitus with other specified complication (principal); M86.9 Osteomyelitis, unspecified; E11.621 Type 2 diabetes mellitus with foot ulcer; L97.512 Non-pressure chronic ulcer of other part of right foot with fat layer exposed; E11.40 Type 2 diabetes mellitus with diabetic neuropathy, unspecified; L84 Corns and callosities; Z12.5 Encounter for screening for malignant neoplasm of prostate; I25.10 Atherosclerotic heart disease of native coronary artery without angina pectoris; I10 Essential (primary) hypertension; E78.5 Hyperlipidemia, unspecified
CPT/HCPCS: 36415; 80053; 80061; 83036; 84443; 99212; G0103

== ENCOUNTER → 2024-06-11 09:44 | Outpatient (CLI) | payer MEDICARE, SELFPAY ==
[2024-01-25 17:36] VITALS: BMI 28.3
== END ==
LOC: WC 09:44
PROVIDERS: PCP Family Medicine; Referring Provider Physician Assistant; Visit Provider Physician Assistant
DX: E11.621 Type 2 diabetes mellitus with foot ulcer (principal); L97.512 Non-pressure chronic ulcer of other part of right foot with fat layer exposed; M86.9 Osteomyelitis, unspecified; L84 Corns and callosities; E11.40 Type 2 diabetes mellitus with diabetic neuropathy, unspecified
CPT/HCPCS: 99212; 99213

== ENCOUNTER 2024-06-16 12:11 | Day surgery (SDC) | payer MEDICARE, SELFPAY ==
[2024-01-25 17:36] VITALS: BMI 28.3
[2024-06-09 12:13] VITALS: BMI 29.0
[2024-06-10 08:41] VITALS: BMI 27.8
[2024-06-10 09:34] VITALS: BMI 27.8
[2024-06-16] VITALS (7 sets, daily range): BP systolic 130–161; BP diastolic 65–88; PULSE 60–90; RESP 15–18; TEMP 36.1–36.8; O2SAT 92–98; BMI 28.3
--- NOTE | 2024-06-16 | PATH_ITS ---
[facility] Accession Number: [id number] No. of containers..01 Tissue . 01 Material submitted: . foot - RIGHT FIFTH METATARSAL HEAD . 01 Diagnosis: RIGHT FIFTH METATARSAL HEAD, AMPUTATION: Osteocartilaginous fragment with degenerative changes, evidence of remodeling, and interspersed marrow with acute inflammation consistent with mild features of acute osteomyelitis. MRV 06/21/2024 1332 Local . 01 Comment: Clinical correlation is recommended. . 01 Electronically signed: . Meaghan Sosa MD, Pathologist NPI- [id number] . 01 Gross description: . Received in formalin with two patient identifiers and metatarsal head, is a tejada fragment of bone with soft tissue and articular surface measuring 1.5 cm in length by 1.6 cm in diameter. The margin is inked blue and sectioning reveals a yellow-tejada, hard cut surface that is difficult to section with a scalpel. The articular surface is intact with no eburnation identified. A cash posting representative section is submitted in A1 following decalcification. ([id number]) /MRV 06/17/2024 1434 Local . 01 Pathologist provided ICD-10: M86.9, L98.494 . 01 CPT . 446237, 097757 Specimen Comment: A courtesy copy of this report has been sent to [phone] Performed at: [address] [id number], [place], [place] [id number] MD Kash Louis MD Phone: [phone]
[2024-06-16] MEDS: LACTATED RINGERS 1,000 ML 42 ML IV (13:12)
[2024-06-16] MEDS: VANCOMYCIN 1,000 MG in SODIUM CHLORIDE 0.9% 250 ML 250 MG IV (13:20)
--- NOTE | 2024-06-16 13:59 | PM.PREOP ---
Pre-operative Note Interval Note History & Physical reviewed/Exam performed by Physician: Yes Changes to H&P: No
--- NOTE | 2024-06-16 14:03 | PM.OP.1 ---
Operative Date/Time/Diagnoses Date of procedure: 06/16/24 Time of procedure: 16:03 Pre-op diagnosis: Right foot neuropathic ulcer, right metatarsal osteomyelitis, MRSA Post-op diagnosis: same Procedure & Clinicians Procedure: 1. Excision complete 5th metatarsal head, right foot CPT code 41065 2. Excision right foot neuropathic ulcer, sharp excision, CPT code 23260 Same procedure as scheduled: Yes Indications: The patient is an 83-year-old male with a neuropathic nonhealing ulcer and osteomyelitis of the right 5th metatarsal head and associated full-thickness ulcer. He has had extensive wound care as well as treatment with Infectious Disease on IV antibiotics and has a nonhealing ulcer and osteomyelitis. He has been indicated for 5th metatarsal head excision and excisional debridement, excision of the right foot neuropathic ulcer. Risks benefits and alternatives of the procedure were discussed in detail including risks for persistent infection or need for additional procedures or wound healing problems and complications associated with anesthesia. The patient agrees and informed consent was signed. Surgeon: Peace Waters Click Yes if Unassisted: Yes Anesthesia Type: General and Local Operative Notes Findings: Full-thickness 1 x 1 cm ulceration lateral to the 5th metatarsal head of the right foot. Closure Type: primary Specimen(s): other (Fifth metatarsal head sent for culture and pathology, right) Estimated Blood Loss (mL): 10 Blood products transfused: none Tourniquet time (min): 12 Procedure in detail: Patient was seen in the preoperative area the site of surgery was marked informed consent confirmed this was the right foot. The patient was brought to the operating room by the anesthesia team and positioned supine position. An ipsilateral bump was placed. Right lower extremity was prepped and draped in the standard sterile fashion a formal time-out procedure was performed confirming the patient's side and site of surgery administration of appropriate preoperative antibiotic which was vancomycin due to the history of MRSA. Attention was turned to the right foot gravity exsanguination was utilized and the tourniquet elevated. At this point a sharp elliptical excision of the 5th metatarsal ulcer was completed using a scalpel full-thickness incision was made sharply excising the lateral foot ulcer-the 1 x 1 cm ulcer was full-thickness and fully excised sharply with a scalpel. This was removed then deep dissection was continued to the level of the 5th metatarsal head. Suppressive dissection dorsally and plantarly was completed then a TPS saw was used to make a transection of the 5th metatarsal head at the head and neck junction. The head was then excised and sent for culture and pathology. The wound was irrigated thoroughly. C-arm was brought in for intraoperative fluoroscopy confirming appropriate metatarsal head resection. Tourniquet was released. Hemostasis was achieved and the wound was closed with 2-0 PDS 4-0 Monocryl and 4-0 nylon sutures. Local anesthetic was infiltrated for postoperative pain control. Toes were noted to pink up well after tourniquet release. Soft dressing with Xeroform gauze Kerlix and an Gilberto wrap was applied. The patient was awoken from anesthesia and taken to the recovery unit in good condition there were no immediate complications from this procedure. Counts were correct. Complications: none Post-operative Condition: stable Disposition: PACU Plan for aftercare: Weightbear as tolerated in the healing boot. Keep incision clean dry and intact. Sutures remain in place 3-4 weeks for up to 6 weeks for healing. Follow up in Orthopedic Clinic as scheduled
[2024-06-16] MEDS: CEFAZOLIN 2 GM/100 ML PREMIX 100 ML IV (15:57)
--- NOTE | 2024-06-16 16:14 | SUR.OPER ---
Supine on padded OR bed, head on pillow, arms secured on padded arm boards at <90 degrees abduction, legs uncrossed, safety belt at thigh, tape over blanket over lower legs.
[2024-06-16] MEDS: BUPIVACAINE 0.25% W/ EPI 30 ML VIAL 60 ML INJ (16:19)
== END 2024-06-16 17:41 | disposition home or self-care (01) ==
PROVIDERS: PCP Family Medicine; Referring Provider Orthopaedic Surgery Foot and Ankle Surgery; Visit Provider Orthopaedic Surgery Foot and Ankle Surgery
PROC: (CPT 28113; principal; 2024-06-16 14:15)
DX: L98.494 Non-pressure chronic ulcer of skin of other sites with necrosis of bone (principal); M86.9 Osteomyelitis, unspecified; G60.9 Hereditary and idiopathic neuropathy, unspecified; E11.40 Type 2 diabetes mellitus with diabetic neuropathy, unspecified; Z87.891 Personal history of nicotine dependence
CPT/HCPCS: 28113; 82962; 87070; 87075; 87077; 87147; 87176; 87186; 87205; J0330; J0690; J2405; J2704; J3010

== ENCOUNTER → 2024-07-16 13:42 | Outpatient (CLI) | payer MEDICARE, SELFPAY ==
[2024-01-25 17:36] VITALS: BMI 28.3
== END ==
PROVIDERS: PCP Family Medicine; Referring Provider Family Medicine; Visit Provider Physician Assistant
DX: E11.621 Type 2 diabetes mellitus with foot ulcer (principal); L97.512 Non-pressure chronic ulcer of other part of right foot with fat layer exposed; M86.18 Other acute osteomyelitis, other site; E11.40 Type 2 diabetes mellitus with diabetic neuropathy, unspecified; L84 Corns and callosities
CPT/HCPCS: 11042; 99213

== ENCOUNTER → 2024-07-30 10:50 | Outpatient (CLI) | payer MEDICARE, SELFPAY ==
[2024-01-25 17:36] VITALS: BMI 28.3
== END ==
LOC: WC 10:53
PROVIDERS: PCP Family Medicine; Referring Provider Family Medicine; Visit Provider Physician Assistant
DX: Z86.31 Personal history of diabetic foot ulcer (principal); R21 Rash and other nonspecific skin eruption; L84 Corns and callosities
CPT/HCPCS: 99212; 99213

== ENCOUNTER → 2024-09-23 15:00 | Outpatient (CLI) | payer MEDICARE, SELFPAY ==
[2024-01-25 17:36] VITALS: BMI 28.3
[2024-09-23 15:27] LABS: Hemoglobin A1C% w Est Avg Glu 6.1 % (4.0-6.0)
[2024-09-23 15:46] LABS: Alanine Aminotransferase 16 IU/L (<50); Albumin 4.2 g/dL (3.5-5.0); Albumin Globulin Ratio 1.6 (1.0-2.8); Alkaline Phosphatase 74 U/L (38-126); Aspartate Aminotransferase 20 IU/L (17-59); BUN Creatinine Ratio 32.3 (6-22); Bilirubin Total 0.8 mg/dL (0.2-1.3); Blood Urea Nitrogen 40 mg/dL (9-20); Calcium 9.1 mg/dL (8.4-10.2); Carbon Dioxide 27 mmol/L (22-32); Chloride 104 mmol/L (98-107); Estimated Glomerular Filt Rate 58 mL/min (>60); Globulin 2.7 g/dL (1.7-4.1); Glucose 166 mg/dL (70-99); HEMOLYSIS < 15 (0-50); Potassium 4.3 mmol/L (3.4-5.1); Sodium 139 mmol/L (137-145); Total Protein 6.9 g/dL (6.3-8.2)
== END ==
PROVIDERS: PCP Family Medicine; Referring Provider Family Medicine; Visit Provider Family Medicine
DX: E11.69 Type 2 diabetes mellitus with other specified complication (principal); Z95.1 Presence of aortocoronary bypass graft; I10 Essential (primary) hypertension; E78.5 Hyperlipidemia, unspecified; I25.10 Atherosclerotic heart disease of native coronary artery without angina pectoris
CPT/HCPCS: 36415; 80053; 83036

== ENCOUNTER → 2024-12-07 08:40 | Outpatient (CLI) | payer MEDICARE, SELFPAY ==
[2024-01-25 17:36] VITALS: BMI 28.3
[2024-12-07 09:20] LABS: Alanine Aminotransferase 16 IU/L (<50); Albumin 4.3 g/dL (3.5-5.0); Albumin Globulin Ratio 1.5 (1.0-2.8); Alkaline Phosphatase 63 U/L (38-126); Blood Urea Nitrogen 29 mg/dL (9-20); Calcium 9.4 mg/dL (8.4-10.2); Carbon Dioxide 27 mmol/L (22-32); Chloride 103 mmol/L (98-107); Estimated Glomerular Filt Rate > 60 mL/min (>60); Globulin 2.8 g/dL (1.7-4.1); Glucose 134 mg/dL (70-99); HEMOLYSIS < 15 (0-50); Potassium 4.0 mmol/L (3.4-5.1); Sodium 139 mmol/L (137-145); Total Protein 7.1 g/dL (6.3-8.2)
== END ==
PROVIDERS: PCP Family Medicine; Referring Provider Family Medicine; Visit Provider Family Medicine
DX: R60.0 Localized edema (principal); I25.10 Atherosclerotic heart disease of native coronary artery without angina pectoris
CPT/HCPCS: 36415; 80053

== ENCOUNTER → 2025-03-07 11:52 | Outpatient (CLI) | payer MEDICARE, SELFPAY ==
[2024-01-25 17:36] VITALS: BMI 28.3
[2025-03-07 13:36] LABS: Add Manual Diff / Slide Review NO; Hematocrit 42.8 % (41-53); Hemoglobin 14.4 g/dL (13.5-17.5); Lymphocytes Absolute Auto 1400 /uL (1100-4500); Mean Corpuscular HGB Conc 33.7 % (30-36); Mean Corpuscular Hemoglobin 30.3 PG (26-34); Mean Corpuscular Volume 90.0 fL (80-100); Platelet Count 227 X10^3/uL (150-400)
[2025-03-07 13:48] LABS: Hemoglobin A1C% w Est Avg Glu 6.5 % (4.0-6.0)
[2025-03-07 14:02] LABS: Alanine Aminotransferase 22 IU/L (<50); Albumin 4.6 g/dL (3.5-5.0); Albumin Globulin Ratio 1.5 (1.0-2.8); Alkaline Phosphatase 69 U/L (38-126); Blood Urea Nitrogen 26 mg/dL (9-20); Calcium 9.6 mg/dL (8.4-10.2); Carbon Dioxide 28 mmol/L (22-32); Chloride 103 mmol/L (98-107); Estimated Glomerular Filt Rate > 60 mL/min (>60); Globulin 3.0 g/dL (1.7-4.1); Glucose 135 mg/dL (70-99); HEMOLYSIS < 15 (0-50); Potassium 4.2 mmol/L (3.4-5.1); Sodium 141 mmol/L (137-145); Total Protein 7.6 g/dL (6.3-8.2)
== END ==
PROVIDERS: PCP Family Medicine; Referring Provider Family Medicine; Visit Provider Family Medicine
DX: E11.42 Type 2 diabetes mellitus with diabetic polyneuropathy (principal); E11.69 Type 2 diabetes mellitus with other specified complication; I10 Essential (primary) hypertension; E78.2 Mixed hyperlipidemia; I25.10 Atherosclerotic heart disease of native coronary artery without angina pectoris; N40.0 Benign prostatic hyperplasia without lower urinary tract symptoms
CPT/HCPCS: 36415; 80053; 82043; 82570; 83036; 85025